=== PATIENT | female | born 1995 | race Caucasian/White ===

== ENCOUNTER 2018-01-23 08:08 | Emergency (ER) | payer SELFPAY ==
--- NOTE | 2018-01-23 08:08 | DT_ITS ---
This patient was seen during an EMR downtime January 23, 2018 - January 30, 2018. This patient may have a combination of paper and electronic documentation or all paper documentation. All documentation is viewable within the e-chart portion of [facility] for each patient visit.
--- NOTE | 2018-01-23 10:00 | US_ITS ---
STUDY: FIRST TRIMESTER OBSTETRICAL ULTRASOUND REASON FOR EXAM: Female, 22 years old. Spotting. LMP: October 22, 2017. TECHNIQUE: Transvaginal PRIOR ULTRASOUND: None. FINDINGS: There is visualization of a single gestational sac in a normal intrauterine position. The mean sac diameter (MSD) measures 9.7 mm, indicating an estimated gestational age (EGA) of 5 weeks, 5 days. The gestational sac shape is within normal limits. There is a visualized yolk sac. The yolk sac measures 2.3 mm. The placenta is non-visualized. There is visualization of a live embryo. The crown-rump length (CRL) measures 2.4 mm, indicating an estimated gestational age (EGA) of 5 weeks, 6 days. There is demonstrated cardiac activity with a heart rate of 105 bpm. The estimated gestation age (EGA) by LMP is 9 weeks, 2 days. The estimated date of delivery (JADEN) by LMP is August 26, 2018. The estimated gestation age (EGA) by US is 5 weeks, 6 days. The estimated date of delivery (JADEN) by US is September 19, 2018. The uterus measures 7.5 x 4.4 x 5.2 cm. There is no demonstrated uterine fibroid. The cervix is closed. The right ovary measures 3.5 x 2.4 x 1.9 cm. Some images suggest a thick walled 1.3 cm right ovarian structure, possibly an evolving corpus luteum. The left ovary measures 2.9 x 1.9 x 2.3 cm. There is no left ovarian cyst. There is no visualized left adnexal mass or complex lesion. There is no fluid in the cul de sac. US/Transvaginal w/Preg US IMPRESSION: 1. Single living intrauterine of estimated gestational age of 5 weeks, 6 days. Estimated date of delivery by today's exam is September 19, 2018, contrasting with August 26, 2018 by dates. 2. The placenta is not yet visualized. No demonstrated subchorionic hemorrhage. 3. Possible 1.3 cm thick-walled structure in the right ovary, a common appearance for an evolving corpus luteum. The left ovary is unremarkable. Electronically Signed: Brennen Hager MD at 16:18 EDT , Service support ,
[2018-01-26 10:31] LABS: hCG Titer Quant., Serum 3876 mIU/mL (<9 non-preg)
--- NOTE | 2018-02-21 06:17 | ED.VISSUMM ---
- ER Visit Summary Date of Service: 02/21/18 Chief Complaint: Vaginal bleeding History of Present Illness: The patient is a 22 F who states that yesterday she started having mild intermittent pelvic cramping with vaginal spotting. Believes that she is about 2-3 weeks . Ab0. She has a history of PTSD. She denies having prior abdominal surgery. She denies any discharge, fever or dysuria. Physical Examination: Well appearing young female. Vital signs stable and afebrile. H EENT exam unremarkable. Lungs clear to auscultation bilaterally. Heart regular rhythm no murmur. Abdomen is soft and nontender normal bowel sounds no peritoneal signs. Moving all 4 extremities. Calves without edema or cords. Neurologically awake and alert. Pelvic exam done female nurse present in the room. Normal external exam. No discharge. There is a small amount of old blood in the vaginal vault. There was no cervical motion tenderness on bimanual exam. The uterus was normal in size. The adnexa was nontender. Test Results: Quantitative hCG was 3876. Blood type was a positive. Pelvic CTA/CTV ultra sound showed a single live IUP at 5 weeks and 6 days with heart tones of 105. Otherwise unremarkable. Emergency Department Course and Treatment: Discharge to home to follow-up with her ACCOUNT OFFICER. Treatment Plan: Patient doing well at 1047. Was given p.o. Zofran for nausea. Disposition: Discharge Impression: Vaginal bleeding approximately 5 weeks and 6 days. Threatened miscarriage Chart dictated 02/21/2018. Initially seen and evaluated on 01/23/2018. Dictation was delayed due to computer downtime at the hospital. This note was generated with [employer] dictation software. It may contain incorrect words, spelling, and punctuation that were not noted in review of the chart prior to signing ED Disposition - Plan for ED Patient: Disposition: Home or Assisted Living Referrals: Care Physician,No Primary [Primary Care Provider] -
--- NOTE | 2018-02-21 06:20 | ED.DCSUM_ITS ---
- ER Visit Summary Date of Service: 02/21/18 Chief Complaint: Vaginal bleeding History of Present Illness: The patient is a 22 F who states that yesterday she started having mild intermittent pelvic cramping with vaginal spotting. Believes that she is about 2-3 weeks . Ab0. She has a history of PTSD. She denies having prior abdominal surgery. She denies any discharge, fever or dysuria. Physical Examination: Well appearing young female. Vital signs stable and afebrile. H EENT exam unremarkable. Lungs clear to auscultation bilaterally. Heart regular rhythm no murmur. Abdomen is soft and nontender normal bowel sounds no peritoneal signs. Moving all 4 extremities. Calves without edema or cords. Neurologically awake and alert. Pelvic exam done female nurse present in the room. Normal external exam. No discharge. There is a small amount of old blood in the vaginal vault. There was no cervical motion tenderness on bimanual exam. The uterus was normal in size. The adnexa was nontender. Test Results: Quantitative hCG was 3876. Blood type was a positive. Pelvic CTA /CTV ultra sound showed a single live IUP at 5 weeks and 6 days with heart tones of 105. Otherwise unremarkable. Emergency Department Course and Treatment: Discharge to home to follow-up with her MEDIA RELATIONS INTERN. Treatment Plan: Patient doing well at 1047. Was given p.o. Zofran for nausea. Disposition: Discharge Impression: Vaginal bleeding approximately 5 weeks and 6 days. Threatened miscarriage Chart dictated 02/21/2018. Initially seen and evaluated on 01/23/2018. Dictation was delayed due to computer downtime at the hospital. This note was generated with [employer] dictation software. It may contain incorrect words, spelling, and punctuation that were not noted in review of the chart prior to signing ED Disposition - Plan for ED Patient: Disposition: Home or Assisted Living Referrals: Care Physician,No Primary [Primary Care Provider] -
== END 2018-01-23 11:02 | disposition home or self-care (01) ==
LOC: ED 01-25 11:54
PROVIDERS: Emergency Provider Emergency Medicine
DX: O20.0 Threatened abortion (principal); Z3A.01 Less than 8 weeks gestation of pregnancy
CPT/HCPCS: 36415; 76817; 84702; 99283; A4216

== ENCOUNTER → 2018-01-25 06:05 | Outpatient (CLI) | payer SELFPAY ==
--- NOTE | 2018-01-25 06:05 | DT_ITS ---
This patient was seen during an EMR downtime January 23, 2018 - January 30, 2018. This patient may have a combination of paper and electronic documentation or all paper documentation. All documentation is viewable within the e-chart portion of [facility] for each patient visit.
[2018-01-30 10:41] LABS: Hematocrit 40.9 % (37-47); Hemoglobin 13.4 g/dl (12.0-15.0); Mean Corp Hgb Conc 32.8 g/gl (32-36); Mean Corpuscular Hgb 29.1 pg (27.0-32.0); Mean Corpuscular Volume 88.7 fL (81-99); Mean Platelet Vol. 9.9 fl (6.2-12.0); Platelet Count 348 K/mm3 (150-450); RBC Distribution Width CV 13.6 % (11.6-14.6); RBC Distribution Width SD 43.8 fl (35.1-43.9); Red Blood Count 4.61 M/mm3 (4.2-5.4); Scan Indicated on CBC? Y/N NO; White Blood Count 6.7 K/mm3 (4.4-11.0)
[2018-01-31 10:05] LABS: hCG Titer Quant., Serum 4728 mIU/mL (<9 non-preg)
== END ==
PROVIDERS: Visit Provider Obstetrics & Gynecology
DX: O20.0 Threatened abortion (principal); Z3A.00 Weeks of gestation of pregnancy not specified
CPT/HCPCS: 36415; 84702; 85027

== ENCOUNTER → 2018-01-27 06:04 | Outpatient (CLI) | payer OTHER, SELFPAY ==
--- NOTE | 2018-01-27 06:04 | DT_ITS ---
This patient was seen during an EMR downtime January 23, 2018 - January 30, 2018. This patient may have a combination of paper and electronic documentation or all paper documentation. All documentation is viewable within the e-chart portion of [facility] for each patient visit.
[2018-01-27 15:12] LABS: hCG Titer Quant., Serum 5723 mIU/mL (<9 non-preg)
== END ==
PROVIDERS: Visit Provider Nurse Practitioner Women's Health
DX: O20.0 Threatened abortion (principal)
CPT/HCPCS: 36415; 84702

== ENCOUNTER 2018-02-01 11:08 | Emergency (ER) | payer OTHER, SELFPAY ==
[2018-02-01 11:09] VITALS: BP 116/68; PULSE 100; RESP 15; TEMP 35.8; BMI 40.1
[2018-02-01 11:25] VITALS: BP 126/77; PULSE 84; RESP 22; O2SAT 100
--- NOTE | 2018-02-01 11:37 | US_ITS ---
STUDY: FIRST TRIMESTER OBSTETRICAL ULTRASOUND REASON FOR EXAM: Female, 22 years old. Bleeding. LMP: TECHNIQUE: Transvaginal PRIOR ULTRASOUND: None. FINDINGS: There is visualization of a single gestational sac in a normal intrauterine position. The mean sac diameter (MSD) measures 1.7 cm, indicating an estimated gestational age (EGA) of 6 weeks, 1 days. The gestational sac shape is within normal limits. There is a visualized yolk sac. The yolk sac measures 2.9. The placenta is non-visualized. There is visualization of a live embryo. The crown-rump length (CRL) measures 7.3 mm, indicating an estimated gestational age (EGA) of 6 weeks, 5 days. There is demonstrated cardiac activity with a heart rate of 122 bpm. The estimated gestation age (EGA) by LMP is weeks, days. The estimated date of delivery (JADEN) by LMP is . The estimated gestation age (EGA) by US is 6 weeks, 3 days. The estimated date of delivery (JADEN) by US is September 24, 2017. The uterus measures 8 x 5.7 x 2.6 cm. There is no demonstrated uterine fibroid. The cervix is closed. The right ovary measures 3.5 x 2.7 x 2.1 cm. There is no right ovarian cyst. There is no visualized right adnexal mass or complex lesion. The left ovary measures 3.2 x 2.3 x 1.9 cm . There is no left ovarian cyst. There is no visualized left adnexal mass or complex lesion. There is no fluid in the cul de sac. US/Transvaginal w/Preg US IMPRESSION: There is visualization of a live embryo. The crown-rump length (CRL) measures 7.3 mm, indicating an estimated gestational age (EGA) of 6 weeks, 5 days. There is demonstrated cardiac activity with a heart rate of 122 bpm. Electronically Signed: Ayesha Canales MD at 13:42 EDT Tel , Service support ,
--- NOTE | 2018-02-01 11:41 | ED.VISSUMM ---
- ER Visit Summary Date of Service: 02/01/18 Chief Complaint: Vaginal bleeding History of Present Illness: The patient is a 22 F states that she is Ab0. Approximately 7 weeks . Due date is 09/19/2018 and has recently been revised to 09/24/2018. States that she has had vaginal spotting for last 5 days. Denies any discharge no dysuria. No fever. Minimal cramping. Her blood type a positive. She has had a single live IUP show up on a ultrasound in her RECREATION TEACHER's office that is Dr. Bains. Physical Examination: Well-appearing young female. Vital signs are stable afebrile. She does not look septic or toxic. She is no acute distress. H EENT exam unremarkable. Neck nontender. Lungs clear to auscultation bilaterally. Heart regular rhythm no murmur. Abdomen soft nontender not distended, normal bowel sounds, no peritoneal signs. Soft. Moving all 4 extremities. Edema. Nontender. Neurologically She Is Awake Alert without Focal Deficits. Test Results: Prior blood work showed a blood type of a positive. Pelvic ultrasound showed a single live IUP at 6 weeks and 5 days with heart rate of 122. Her quantitative hCG was 8638. Approximately 5 days ago it was 5723. Emergency Department Course and Treatment: Repeat exam she is doing well at 1600. She is deferring pelvic exam at this time. She and I went over all test results. And she will follow-up with her RECREATION TEACHER physician Dr. Petros Pisano. Treatment Plan: [] Disposition: Discharge Impression: Vaginal bleeding and first trimester Threatened miscarriage This note was generated with [employer] dictation software. It may contain incorrect words, spelling, and punctuation that were not noted in review of the chart prior to signing ED Disposition - Plan for ED Patient: Chief Complaint: Vag Bld, Preg Referrals: Care Physician,No Primary [Primary Care Provider] -
--- NOTE | 2018-02-01 11:44 | ED.DCSUM_ITS ---
- ER Visit Summary Date of Service: 02/01/18 Chief Complaint: Vaginal bleeding History of Present Illness: The patient is a 22 F states that she is Ab0. Approximately 7 weeks . Due date is 09/19/2018 and has recently been revised to 09/24/2018. States that she has had vaginal spotting for last 5 days. Denies any discharge no dysuria. No fever. Minimal cramping. Her blood type a positive. She has had a single live IUP show up on a ultrasound in her RACK CLEANER's office that is Dr. Bains. Physical Examination: Well-appearing young female. Vital signs are stable afebrile. She does not look septic or toxic. She is no acute distress. H EENT exam unremarkable. Neck nontender. Lungs clear to auscultation bilaterally. Heart regular rhythm no murmur. Abdomen soft nontender not distended, normal bowel sounds, no peritoneal signs. Soft. Moving all 4 extremities. Edema. Nontender. Neurologically She Is Awake Alert without Focal Deficits. Test Results: Prior blood work showed a blood type of a positive. Pelvic ultrasound showed a single live IUP at 6 weeks and 5 days with heart rate of 122. Her quantitative hCG was 8638. Approximately 5 days ago it was 5723. Emergency Department Course and Treatment: Repeat exam she is doing well at 1600. She is deferring pelvic exam at this time. She and I went over all test results. And she will follow-up with her RACK CLEANER physician Dr. Petros Pisano. Treatment Plan: [] Disposition: Discharge Impression: Vaginal bleeding and first trimester Threatened miscarriage This note was generated with [employer] dictation software. It may contain incorrect words, spelling, and punctuation that were not noted in review of the chart prior to signing ED Disposition - Plan for ED Patient: Chief Complaint: Vag Bld, Preg Referrals: Care Physician,No Primary [Primary Care Provider] -
[2018-02-01 13:17] LABS: hCG Titer Quant., Serum 8638 mIU/mL (<9 non-preg)
[2018-02-01 13:20] VITALS: BP 120/86; PULSE 89; RESP 15; O2SAT 98
[2018-02-01 15:12] VITALS: PULSE 85; RESP 15; O2SAT 100
--- NOTE | 2018-02-01 16:06 | ED.DEP ---
ED Disposition - Plan for ED Patient: Disposition: Home or Assisted Living Chief Complaint: Vag Bld, Preg Instructions: ED Miscarriage Poss Referrals: Susanne Bains MD [STAFF PHYSICIAN] - As soon as possible Additional Instructions: Plenty of fluids and rest. Follow-up with your AIRCRAFT STRUCTURAL REPAIR MECHANIC physician.
[2018-02-01 16:24] VITALS: PULSE 85; RESP 16; O2SAT 99
== END 2018-02-01 16:24 | disposition home or self-care (01) ==
PROVIDERS: Emergency Provider Emergency Medicine
DX: O20.0 Threatened abortion (principal); Z3A.01 Less than 8 weeks gestation of pregnancy
CPT/HCPCS: 76817; 84702; 99282

== ENCOUNTER 2018-02-02 14:33 | Emergency (ER) | payer OTHER, SELFPAY ==
[2018-02-02 14:34] VITALS: BP 150/75; PULSE 101; RESP 18; TEMP 37; O2SAT 98; BMI 41.2
--- NOTE | 2018-02-02 15:32 | ED.DCSUM_ITS ---
- ER Visit Summary Date of Service: 02/02/18 Chief Complaint: Vaginal bleeding History of Present Illness: The patient is a 22 F presents with vaginal bleeding in . She is 6 weeks . She states that she has been bleeding for the past 11 days. She was seen in the emergency department yesterday. Today she presents because the bleeding became heavier. She is . She had an ultrasound performed in the emergency department yesterday. Physical Examination: Vitals are stable. Patient is afebrile. Alert no acute distress. HEENT exam is unremarkable. Lungs are clear and equal bilaterally. Heart is regular rate and rhythm. Abdomen is soft mild diffuse lower quadrant tenderness with no guarding or rebound Pelvic: Minimal blood in the vaginal vault, this is cleared with cotton tip swab , no significant active bleeding. Cervix is closed. Extremities are unremarkable. Skin is warm and dry. No focal neurologic deficit. Remainder of exam is unremarkable. Emergency Department Course and Treatment: HCG quant 8919. Yesterday it was 8638. Blood type per previous documentation is A+. CBC is unremarkable. Pelvic ultrasound shows single live IUP 7 weeks, 2 days. There is demonstrated cardiac activity with a heart rate of [address] Bains and she will follow the patient in the office next week. Advised return to ED if worsening complaints. Disposition: Discharge home Impression: Vaginal bleeding in This note was generated with [employer] dictation software. It may contain incorrect words, spelling, and punctuation that were not noted in review of the chart prior to signing ED Disposition - Plan for ED Patient: Chief Complaint: Vag Bld, Preg Instructions: ED Miscarriage Poss Referrals: Susanne Bains MD [STAFF PHYSICIAN] - Care Physician,No Primary [Primary Care Provider] -
[2018-02-02 15:44] LABS: Absolute Lymphocyte Count 1.87 X10^3/ul (0.83-4.51); Absolute Neutrophil Count 4.8 X10^3/uL (2.0-7.7); Basophil# 0.02 X10^3/uL; Basophil% 0.3 % (0-1); Eosinophils% 2.6 % (0-5); Hematocrit 37.8 % (37-47); Hemoglobin 12.4 g/dl (12.0-15.0); Lymphocyte # 1.87 X10^3/ul (4.0); Lymphocyte % 24.6 % (19-41); Mean Corp Hgb Conc 32.8 g/gl (32-36); Mean Corpuscular Hgb 28.3 pg (27.0-32.0); Mean Corpuscular Volume 86.3 fL (81-99); Mean Platelet Vol. 9.1 fl (6.2-12.0); Monocyte# 0.68 X10^3/uL; Neutrophil # 4.82 X10^3/uL (2.7-7.7); Neutrophil % 63.5 % (47-70); Platelet Count 305 K/mm3 (150-450); RBC Distribution Width CV 13.4 % (11.6-14.6); RBC Distribution Width SD 42.3 fl (35.1-43.9); Red Blood Count 4.38 M/mm3 (4.2-5.4); White Blood Count 7.6 K/mm3 (4.4-11.0)
[2018-02-02 15:50] LABS: POSITIVE COUNT NO; POSITIVE DIFFERENTIAL NO; POSITIVE MORPHOLOGY NO
--- NOTE | 2018-02-02 16:06 | US_ITS ---
STUDY: FIRST TRIMESTER OBSTETRICAL ULTRASOUND REASON FOR EXAM: Female, 22 years old. Bleeding. . TECHNIQUE: Transvaginal PRIOR ULTRASOUND: 02/01/2018 FINDINGS: There is visualization of a single gestational sac in a normal intrauterine position. There is a visualized yolk sac. There is visualization of a live embryo. The crown-rump length (CRL) measures 1.1 cm, indicating an estimated gestational age (EGA) of 7 weeks, 2 days. There is demonstrated cardiac activity with a heart rate of 119 bpm. The uterus measures 7.3 x 5.4 x 4.1 cm. There is no demonstrated uterine fibroid. The cervix is closed. The right ovary measures 3.9 x 2.9 x 2.4 cm. There is no right ovarian cyst. There is no visualized right adnexal mass or complex lesion. The left ovary measures 3.2 x 2.3 x 2.0 cm. There is no left ovarian cyst. There is no visualized left adnexal mass or complex lesion. There is no fluid in the cul de sac. US/Transvaginal w/Preg US IMPRESSION: Single live intrauterine gestation, as described above. Electronically Signed: Ethan Gonzalez, at 17:10 EDT Tel , Service support ,
--- NOTE | 2018-02-02 16:11 | ED.RN ---
SPOKE WITH WILLAM AT DR. MASTERS'S OFFICE WHO REQUESTED OB US FOR FHT.
[2018-02-02 16:19] LABS: hCG Titer Quant., Serum 8919 mIU/mL (<9 non-preg)
--- NOTE | 2018-02-02 16:28 | ED.RN ---
hcg 8191 called from the lab.
--- NOTE | 2018-02-02 17:50 | ED.DEP ---
ED Disposition - Plan for ED Patient: Chief Complaint: Vag Bld, Preg Instructions: ED Miscarriage Poss Referrals: Care Physician,No Primary [Primary Care Provider] - Susanne Bains MD [STAFF PHYSICIAN] -
[2018-02-02 18:04] VITALS: BP 147/77; PULSE 82; RESP 16
== END 2018-02-02 18:04 | disposition home or self-care (01) ==
PROVIDERS: Emergency Provider Emergency Medicine
DX: O20.0 Threatened abortion (principal); O20.9 Hemorrhage in early pregnancy, unspecified; Z3A.01 Less than 8 weeks gestation of pregnancy
CPT/HCPCS: 36415; 76817; 84702; 85025; 99282

== ENCOUNTER 2018-02-07 22:40 | Emergency (ER) | payer OTHER, SELFPAY ==
[2018-02-07 22:40] VITALS: BP 117/72; PULSE 84; RESP 16; TEMP 36.8; O2SAT 100; BMI 39.8
--- NOTE | 2018-02-07 23:00 | US_ITS ---
STUDY: FIRST TRIMESTER OBSTETRICAL ULTRASOUND REASON FOR EXAM: Female, 22 years old. Bleeding LMP: 12/13/2017 TECHNIQUE: Transabdominal and transvaginal probes were used PRIOR ULTRASOUND: February 02, 2018 FINDINGS: The study shows a gravid uterus measuring 8.3 x 5.5 x 4.1 cm. It contains a gestational sac within which is seen on embryonic pole. There is an abnormal abdomen embryonic cardiac activity with a rate of between 53 and 58 bpm. There is an embryonic crown-rump length of 1.6 cm compatible with 8 weeks 0 days +/- 5 days with an expected date of delivery of 09/23/2018. Both ovaries are visualized and they both show normal vascularity. The right ovary measures 3.8 x 2.7 x 2.2 cm and has a 2 cm corpus luteal cyst within it. The left ovary measures 3.5 x 2.1 x 1.5 cm. No free fluid in the cul-de-sac. .. US/Transvaginal w/Preg US IMPRESSION: An intrauterine at 8 weeks 0 days +/- 5 days with an expected date of delivery of 09/23/2018. The embryonic heart rate is currently recording at 53 to 58 bpm. This is abnormal. In the last examination of February 02, 2018 the heart rate was 11 9 bpm. Electronically Signed: Rex Boykin, at 0:41 EDT Tel , Service support ,
[2018-02-08 00:15] LABS: hCG Titer Quant., Serum 14328 mIU/mL (<9 non-preg)
--- NOTE | 2018-02-08 00:22 | ED.VISSUMM ---
- ER Visit Summary Date of Service: 02/08/18 Chief Complaint: Vaginal bleeding in History of Present Illness: The patient is a 22 F presenting with vaginal bleeding in . Patient states she has been bleeding for approximately 11 days. She was seen in the ED for similar complaints on February 02. She has mild abdominal cramping. She was concerned today due to bleeding with clots. She is . She sees Dr. Oconnell. Physical Examination: Vitals are stable. Patient is afebrile. Alert no acute distress. HEENT exam is unremarkable. Neck is supple. Lungs are clear and equal bilaterally. Heart is regular rate and rhythm. Abdomen is soft nontender nondistended. Pelvic: Small amount of blood in the vaginal vault. This is cleared with a cotton swab. No significant active bleeding. Extremities are unremarkable. Skin is warm and dry. No focal neurologic deficit. Remainder of exam is unremarkable. Emergency Department Course and Treatment: HCG quant [id number]. Blood type is A+. She was given Tylenol. Pelvic ultrasound shows an intrauterine at 8 weeks 0 days +/- 5 days with an expected date of delivery of 09/23/2018. The embryonic heart rate is currently recording at 53 to 58 bpm. This is abnormal. In the last examination of February 02, 2018 the heart rate was 119 bpm. Patient is advised of these findings. Discussed with Dr. Doc Pisano. Patient has a scheduled appointment on Tuesday. She is advised to keep this appointment. Advised to return to the ED for worsening complaints. Disposition: Discharge home Impression: Threatened This note was generated with [employer] dictation software. It may contain incorrect words, spelling, and punctuation that were not noted in review of the chart prior to signing ED Disposition - Plan for ED Patient: Chief Complaint: Vag Bld, Preg Referrals: Care Physician,No Primary [Primary Care Provider] -
--- NOTE | 2018-02-08 00:26 | ED.DCSUM_ITS ---
- ER Visit Summary Date of Service: 02/08/18 Chief Complaint: Vaginal bleeding in History of Present Illness: The patient is a 22 F presenting with vaginal bleeding in . Patient states she has been bleeding for approximately 11 days. She was seen in the ED for similar complaints on February 02. She has mild abdominal cramping. She was concerned today due to bleeding with clots. She is . She sees Dr. Oconnell. Physical Examination: Vitals are stable. Patient is afebrile. Alert no acute distress. HEENT exam is unremarkable. Neck is supple. Lungs are clear and equal bilaterally. Heart is regular rate and rhythm. Abdomen is soft nontender nondistended. Pelvic: Small amount of blood in the vaginal vault. This is cleared with a cotton swab. No significant active bleeding. Extremities are unremarkable. Skin is warm and dry. No focal neurologic deficit. Remainder of exam is unremarkable. Emergency Department Course and Treatment: HCG quant [id number]. Blood type is A+. She was given Tylenol. Pelvic ultrasound shows an intrauterine at 8 weeks 0 days +/- 5 days with an expected date of delivery of 09/23/2018. The embryonic heart rate is currently recording at 53 to 58 bpm. This is abnormal. In the last examination of February 02, 2018 the heart rate was 119 bpm. Patient is advised of these findings. Discussed with Dr. Doc Pisano. Patient has a scheduled appointment on Tuesday. She is advised to keep this appointment. Advised to return to the ED for worsening complaints. Disposition: Discharge home Impression: Threatened This note was generated with [employer] dictation software. It may contain incorrect words, spelling, and punctuation that were not noted in review of the chart prior to signing ED Disposition - Plan for ED Patient: Chief Complaint: Vag Bld, Preg Referrals: Care Physician,No Primary [Primary Care Provider] -
[2018-02-08 01:04] VITALS: BP 130/88
== END 2018-02-08 01:05 | disposition home or self-care (01) ==
LOC: ED 23:56
PROVIDERS: Emergency Provider Emergency Medicine
DX: O20.0 Threatened abortion (principal); Z3A.08 8 weeks gestation of pregnancy
CPT/HCPCS: 76817; 84702; 84703; 86900; 86901; 99282

== ENCOUNTER 2018-02-27 10:54 | Emergency (ER) | payer OTHER, SELFPAY ==
[2018-02-27 10:54] VITALS: BP 139/73; PULSE 112; RESP 18; TEMP 36.4; O2SAT 100; BMI 38.3
[2018-02-27 11:15] VITALS: BP 135/70; PULSE 90; RESP 14; O2SAT 99
[2018-02-27 11:27] LABS: Bacteria 0 SEEN /hpf (None Seen); Mucous, Urine 0 SEEN /hpf (<or=2+)
[2018-02-27 11:30] LABS: Color, Urine Red (Yellow); Glucose, Dipstick Normal (Normal); Ketone-Dipstick 5 mg/dl (Negative); Leukocyte Esterase-Dipstick 500 /ul (Negative); Nitrite-Dipstick Negative (Negative); Occult Blood-Urine 250 /ul (Negative); Protein-Dipstick 500 mg/dl (Negative); Urine Bilirubin Dipstick Negative (Negative); Urine Clarity Cloudy (Clear); Urine Urobilinogen Normal (Normal); Urine pH 6.5 (5.0 - 8.0)
[2018-02-27 11:39] LABS: Red Blood Cells-Urine 50-100 SEEN /hpf (0-5); Squamous Epithelial Cells - UA 0-5 SEEN /hpf (5-10); White Blood Cells 50-100 SEEN /hpf (0-5)
--- NOTE | 2018-02-27 12:53 | ED.VISSUMM ---
- ER Visit Summary Date of Service: 02/27/18 Chief Complaint: Hematuria History of Present Illness: The patient is a 22 F who presents with dysuria and hematuria that began today. Patient describes her pain as sharp and burning. Patient states she has pain over the suprapubic area. Patient denies any fevers but admits to subjective chills. Patient denies any abnormal vaginal bleeding or discharge. Patient denies any nausea or vomiting. Patient denies any back or flank pain. Physical Examination: Vital signs are stable. Patient is afebrile. Patient is in no acute distress. Oral mucosa is pink and moist. Heart was regular rate and rhythm. Lungs are clear and equal bilateral. Abdomen is soft. Bowel sounds are normal. There is some mild suprapubic tenderness. There is no rebound or guarding noted. Cranial nerves II through XII are intact. There are no focal motor or sensory deficits noted. Test Results: Urinalysis shows evidence of urinary tract infection. Emergency Department Course and Treatment: Patient was given prescription for Bactrim. Patient was instructed to follow-up with her primary care physician in 5-7 days. Patient understood and was agreeable with the plan. All questions were answered. Disposition: Discharged home Impression: Urinary tract infection This note was generated with [employer] dictation software. It may contain incorrect words, spelling, and punctuation that were not noted in review of the chart prior to signing ED Disposition - Plan for ED Patient: Disposition: Home or Assisted Living Chief Complaint: Complaint Diagnosis: Urinary tract infection Instructions: ED UTI Cystitis Female Prescriptions: Smz/Tmp Ds [Bactrim Ds] 1 tab PO BID #6 tab Referrals: Care Physician,No Primary [Primary Care Provider] -
[2018-02-27 13:09] VITALS: BP 125/75; BP 128/70; PULSE 92; RESP 14; RESP 15; O2SAT 98; O2SAT 99
== END 2018-02-27 13:27 | disposition home or self-care (01) ==
PROVIDERS: Emergency Provider Emergency Medicine
DX: N39.0 Urinary tract infection, site not specified (principal); R31.9 Hematuria, unspecified; J44.9 Chronic obstructive pulmonary disease, unspecified; Z72.0 Tobacco use
CPT/HCPCS: 81001; 99282

== ENCOUNTER → 2018-04-03 11:25 | Outpatient (CLI) | payer OTHER, SELFPAY | PROVIDERS: Visit Provider Obstetrics & Gynecology | DX: N91.2 Amenorrhea, unspecified (principal) | CPT/HCPCS: 36415; 84702 ==

== ENCOUNTER → 2018-04-14 15:53 | Outpatient (CLI) | payer OTHER, SELFPAY | LOC: US 15:53 | PROVIDERS: Visit Provider Obstetrics & Gynecology | DX: O09.299 Supervision of pregnancy with other poor reproductive or obstetric history, unspecified trimester (principal) | CPT/HCPCS: 76817 ==

== ENCOUNTER → 2018-04-18 12:22 | Outpatient (CLI) | payer OTHER, SELFPAY ==
[2018-04-18 13:25] LABS: Absolute Lymphocyte Count 2.37 X10^3/ul (0.83-4.51); Absolute Neutrophil Count 5.3 X10^3/uL (2.0-7.7); Basophil# 0.03 X10^3/uL; Basophil% 0.3 % (0-1); Eosinophil# 0.47 X10^3/uL; Eosinophils% 5.2 % (0-5); Hematocrit 36.9 % (37-47); Hemoglobin 12.3 g/dl (12.0-15.0); Lymphocyte # 2.37 X10^3/ul (4.0); Lymphocyte % 26.1 % (19-41); Mean Corp Hgb Conc 33.3 g/gl (32-36); Mean Corpuscular Hgb 28.9 pg (27.0-32.0); Mean Corpuscular Volume 86.8 fL (81-99); Mean Platelet Vol. 9.4 fl (6.2-12.0); Monocyte# 0.89 X10^3/uL; Monocyte% 9.8 % (0-10); Neutrophil # 5.32 X10^3/uL (2.7-7.7); Neutrophil % 58.5 % (47-70); POSITIVE COUNT NO; POSITIVE DIFFERENTIAL NO; POSITIVE MORPHOLOGY NO; Platelet Count 314 K/mm3 (150-450); RBC Distribution Width CV 13.7 % (11.6-14.6); RBC Distribution Width SD 43.5 fl (35.1-43.9); Red Blood Count 4.25 M/mm3 (4.2-5.4); White Blood Count 9.1 K/mm3 (4.4-11.0)
[2018-04-18 13:36] LABS: Amphetamine Urine VISTA NEGATIVE (<1000 ng/mL); Barbiturate Urine VISTA NEGATIVE (< 200 ng/mL); Benzodiazepine Urine VISTA NEGATIVE (< 200 ng/mL); Cocaine Urine VISTA NEGATIVE (< 300 ng/mL); Ecstacy Urine VISTA NEGATIVE (< 500 ng/mL); Methadone Urine VISTA NEGATIVE (< 300 ng/mL); PCP Urine VISTA NEGATIVE (< 25 ng/mL); THC Urine VISTA POSITIVE (< 50 ng/mL); Vista UDS pH Range 5
[2018-04-18 13:48] LABS: Glucose Challenge Gest 1H 50g 91 mg/dL (70-140)
[2018-04-18 14:03] LABS: T4 Free Direct 0.93 ng/dL (0.76-1.46); Thyroid Stim Hormone (TSH) 1.44 uIU/mL (0.358-3.74)
[2018-04-19 10:34] LABS: HIV - WCH Non-Reactive (Nonreactive); Rubella IgG 47.6 IU/mL
[2018-04-19 20:07] LABS: HCV Quant. RNA PCR HCV Not Detected IU/mL (.)
[2018-04-21 03:49] LABS: Rapid Plasmin Reagin (RPR) NONREACTIVE (NONREACTIVE)
[2018-04-21 10:00] LABS: HEPATITIS B SURFACE AG Negative (Negative); Hep C Antibodies 0.1 s/co ratio (0.0-0.9); V-Zoster IgG (Immunity) < 135 index (Immune >165)
== END ==
LOC: LAB 12:23
PROVIDERS: Visit Provider Obstetrics & Gynecology
DX: O09.90 Supervision of high risk pregnancy, unspecified, unspecified trimester (principal); O99.330 Smoking (tobacco) complicating pregnancy, unspecified trimester; Z34.90 Encounter for supervision of normal pregnancy, unspecified, unspecified trimester
CPT/HCPCS: 36415; 80307; 82950; 84439; 84443; 85025; 86592; 86703; 86762; 86787; 86803; 86850; 86900; 87340; 87522

== ENCOUNTER → 2018-04-18 18:42 | Outpatient (CLI) | payer OTHER, SELFPAY ==
[2018-04-18 21:24] LABS: Chlamydia Trachomatis by PCR Negative (Negative); Neisserai gonorrhoeae by PCR Negative (Negative); Probe Check PASS; Sample Adequacy Control PASS; Specimen Processing Control PASS
[2018-04-26 12:25] LABS: HPV APTIMA, High Risk Negative (Negative)
[2018-04-26 14:43] LABS: HPV Reflexed? YES, CHARGE PATIENT
== END ==
PROVIDERS: Visit Provider Obstetrics & Gynecology
DX: Z12.4 Encounter for screening for malignant neoplasm of cervix (principal); O09.90 Supervision of high risk pregnancy, unspecified, unspecified trimester; O99.330 Smoking (tobacco) complicating pregnancy, unspecified trimester
CPT/HCPCS: 87086; 87491; 87591; 87624; 88175; G0145

== ENCOUNTER → 2018-05-18 12:20 | Outpatient (CLI) | payer OTHER, SELFPAY | DX: Z36.82 Encounter for antenatal screening for nuchal translucency (principal) | CPT/HCPCS: 36415 ==

== ENCOUNTER 2018-06-06 08:13 | Emergency (ER) | payer OTHER, SELFPAY ==
[2018-06-06 08:14] VITALS: BP 136/79; PULSE 93; RESP 20; TEMP 36.9; O2SAT 100; BMI 41.8
--- NOTE | 2018-06-06 08:31 | EKG12_ITS ---
Test Reason : SOB Blood Pressure : / mmHG Vent. Rate : 085 BPM Atrial Rate : 085 BPM P-R Int : 176 ms QRS Dur : 074 ms QT Int : 394 ms P-R-T Axes : 034 024 042 degrees QTc Int : 468 ms Normal sinus rhythm Normal ECG Confirmed by MURIEL PEREZ, MAUREEN ([id number]), film editor SEBASTIAN WETZEL ([id number]) on 06/08/2018 9:57:06 AM Referred By: CHIOMA Confirmed By:MAUREEN LLAMAS MD
--- NOTE | 2018-06-06 08:31 | RAD_ITS ---
STUDY: X-RAY CHEST REASON FOR EXAM: Female, 23 years old. Right-sided chest pain TECHNIQUE: PA and lateral views of the chest. COMPARISON: 12/14/2016 FINDINGS: The lungs are clear and expanded. There is no demonstrated pleural abnormality. Normal size heart. Normal mediastinum and lynda. Normal visualized pulmonary arteries. Normal visualized aortic arch and descending thoracic aorta. Normal visualized thoracic spine. Normal visualized ribs, clavicles, and shoulders. There is no demonstrated abnormality of the visualized soft tissue structures of the upper abdomen. RAD/Chest PA and Lateral IMPRESSION: Normal x-ray examination of the chest. Electronically Signed: Marco Antonio Mishra DO at 9:25 EDT Tel , Service support ,
--- NOTE | 2018-06-06 08:32 | ED.VISSUMM ---
- ER Visit Summary Date of Service: 06/06/18 Chief Complaint: [] Right-sided chest pain began Tuesday History of Present Illness: The patient is a 23 F [] reports she is 16 weeks she believes she is , she indicates she believes she had a miscarriage sometime in the summer than she is subsequent became , her pregnancies been uncomplicated no abdominal pain vaginal bleeding or discharge. Her MANAGER IT TRAINING checks have been unremarkable. 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 but did not improve, she indicates is worse when she takes a deep breath, she has had no fever minimal cough, head neck chest abdomen otherwise review of systems are negative She reports a history of emphysema diagnosed when she was 19 related to some unspecified nonspecific condition, she also reports she has an unspecified sticky heart valve that does not require surgery or further therapy just observation, she has no history of [place] PE or DVT she has no history of any GI ailments such as hepatobiliary dysfunction, no kidney stones and again she has had no vaginal bleeding or vaginal discharge, she indicates she has had prior colonoscopies and EGDs for diarrhea that showed nothing acute, she points to the right upper back as the area of discomfort, again she indicates her urinary and bowel habits have been normal Physical Examination: [] Her vital signs are within normal range she is in no distress she speaking full sentences HEENT exams unremarkable the neck is supple no adenopathy the lungs sound clear bilaterally heart tones are unremarkable the abdomen is soft nontender no rebound guarding organomegaly, upper and lower extremities unremarkable without signs clubbing or edema, the right upper back there is a vague pain diffusely over the right scapula there is no flank pain no midline T or lumbar spine pain, neurologically she is awake alert moving all 4 extremities Test Results: [] Emergency Department Course and Treatment: [] And her complaints screening labs x-rays shielded, I explained her the potential for CTA she agrees Patient's laboratory studies including chest x-ray were unremarkable, I discussed CTA with her she understood risk benefits shielding was used CTA chest was done that was negative for all see those reports, she was then sent for right upper quadrant ultrasound OB ultrasound the right upper quadrant ultrasound showed normal kidney, normal right upper quadrant except for a polyp in the gallbladder, and then a normal OB ultrasound 16-week live IUP see all those reports She is feeling better she is frustrated lack of diagnosis I explained to her that given the negative workup that is been very extensive given the fact she is improved it is safe to discharge her home to follow-up with her family doctors and other outpatient providers she agrees she will placed off work take Tylenol for the pain and return for change in symptoms and stay in a bland diet Treatment Plan: [] Disposition: [] Home stable Impression: [] rt Sided chest pain etiology unclear, approximately 7 weeks single live IUP This note was generated with [employer] dictation software. It may contain incorrect words, spelling, and punctuation that were not noted in review of the chart prior to signing ED Disposition - Plan for ED Patient: Chief Complaint: Shortness of Breath Referrals: Care Physician,No Primary [Primary Care Provider] -
--- NOTE | 2018-06-06 08:36 | ED.DCSUM_ITS ---
- ER Visit Summary Date of Service: 06/06/18 Chief Complaint: [] Right-sided chest pain began Tuesday History of Present Illness: The patient is a 23 F [] reports she is 16 weeks she believes she is , she indicates she believes she had a miscarriage sometime in the summer than she is subsequent became , her pregnancies been uncomplicated no abdominal pain vaginal bleeding or discharge. 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 but did not improve, she indicates is worse when she takes a deep breath, she has had no fever minimal cough, head neck chest abdomen otherwise review of systems are negative She reports a history of emphysema diagnosed when she was 19 related to some unspecified nonspecific condition, she also reports she has an unspecified sticky heart valve that does not require surgery or further therapy just observation, she has no history of [place] PE or DVT she has no history of any GI ailments such as hepatobiliary dysfunction, no kidney stones and again she has had no vaginal bleeding or vaginal discharge, she indicates she has had prior colonoscopies and EGDs for diarrhea that showed nothing acute, she points to the right upper back as the area of discomfort, again she indicates her urinary and bowel habits have been normal Physical Examination: [] Her vital signs are within normal range she is in no distress she speaking full sentences HEENT exams unremarkable the neck is supple no adenopathy the lungs sound clear bilaterally heart tones are unremarkable the abdomen is soft nontender no rebound guarding organomegaly, upper and lower extremities unremarkable without signs clubbing or edema, the right upper back there is a vague pain diffusely over the right scapula there is no flank pain no midline T or lumbar spine pain, neurologically she is awake alert moving all 4 extremities Test Results: [] Emergency Department Course and Treatment: [] And her complaints screening labs x-rays shielded, I explained her the potential for CTA she agrees Patient's laboratory studies including chest x-ray were unremarkable, I discussed CTA with her she understood risk benefits shielding was used CTA chest was done that was negative for all see those reports, she was then sent for right upper quadrant ultrasound OB ultrasound the right upper quadrant ultrasound showed normal kidney, normal right upper quadrant except for a polyp in the gallbladder, and then a normal OB ultrasound 16-week live IUP see all those reports She is feeling better she is frustrated lack of diagnosis I explained to her that given the negative workup that is been very extensive given the fact she is improved it is safe to discharge her home to follow-up with her family doctors and other outpatient providers she agrees she will placed off work take Tylenol for the pain and return for change in symptoms and stay in a bland diet Treatment Plan: [] Disposition: [] Home stable Impression: [] rt Sided chest pain etiology unclear, approximately 7 weeks single live IUP This note was generated with [employer] dictation software. It may contain incorrect words, spelling, and punctuation that were not noted in review of the chart prior to signing ED Disposition - Plan for ED Patient: Chief Complaint: Shortness of Breath Referrals: Care Physician,No Primary [Primary Care Provider] -
[2018-06-06 08:54] LABS: Absolute Lymphocyte Count 2.04 X10^3/ul (0.83-4.51); Absolute Neutrophil Count 6.3 X10^3/uL (2.0-7.7); Basophil# 0.02 X10^3/uL; Basophil% 0.2 % (0-1); Eosinophil# 0.27 X10^3/uL; Eosinophils% 2.9 % (0-5); Hematocrit 37.7 % (37-47); Hemoglobin 12.7 g/dl (12.0-15.0); Lymphocyte # 2.04 X10^3/ul (4.0); Lymphocyte % 21.9 % (19-41); Mean Corp Hgb Conc 33.7 g/gl (32-36); Mean Corpuscular Hgb 28.9 pg (27.0-32.0); Mean Corpuscular Volume 85.9 fL (81-99); Mean Platelet Vol. 9.5 fl (6.2-12.0); Monocyte# 0.64 X10^3/uL; Monocyte% 6.9 % (0-10); Neutrophil # 6.32 X10^3/uL (2.7-7.7); Neutrophil % 67.9 % (47-70); Platelet Count 282 K/mm3 (150-450); RBC Distribution Width CV 13.3 % (11.6-14.6); RBC Distribution Width SD 41.7 fl (35.1-43.9); Red Blood Count 4.39 M/mm3 (4.2-5.4); White Blood Count 9.3 K/mm3 (4.4-11.0)
[2018-06-06 08:55] LABS: POSITIVE COUNT NO; POSITIVE DIFFERENTIAL NO; POSITIVE MORPHOLOGY NO
[2018-06-06 09:13] LABS: Anion Gap 8 (5-15); BUN 7 mg/dL (7-18); Calcium,Total 8.4 mg/dL (8.5-10.1); Chloride 104 mmol/L (98-107); Creatinine, Serum 0.54 mg/dL (0.55-1.02); EST Glomerular Filtration Rate 148 mL/min (>60); Est Glom Filt Rate - Afr Amer 179 mL/min (>60); Estimated Creatinine Clearance 132.89 ml/min; Glucose 75 mg/dL (74-106); Potassium 3.6 mmol/L (3.5-5.1); Sodium Level 138 mmol/L (136-145)
[2018-06-06] MEDS: 0.9% Normal Saline 1,000 ML 150 ML IV (09:16)
[2018-06-06] MEDS: Morphine 4 MG/ML Syringe IV (09:16)
[2018-06-06] MEDS: Ondansetron 4 MG/2 ML Vial IV (09:16)
[2018-06-06 09:23] LABS: BNP,B-Type NATRIURETIC PEPTIDE 13.6 pg/mL (0-100)
--- NOTE | 2018-06-06 09:55 | CT_ITS ---
STUDY: CTA CHEST REASON FOR EXAM: Female, 23 years old. 5 day history of breast shortness of breath and chest pain. The patient is 17 weeks spine. The patient is appropriately shielded. RADIATION DOSAGE (If Supplied By Facility): CTDIvol = ( 15.50 ) mGy, DLP = ( 700.16 ) mGycm TECHNIQUE: The examination was performed with the intravenous administration of 100ML ml of Isovue 370 contrast material. Post-processing of the angiographic images was performed, with multiplanar reformation and 3D reconstruction. Individualized dose optimization techniques were used for this CT. COMPARISON: Comparison is made with prior study dated May 29, 2016. FINDINGS: Normal enhancement of the main pulmonary artery and right and left pulmonary arteries. Normal enhancement of the bilateral peripheral pulmonary arteries. There is no demonstrated pulmonary embolism. Normal thoracic aorta and visualized great vessels. There is no demonstrated aortic dissection. Normal heart and pericardium. Normal mediastinum. Normal hilar regions. Normal visualized trachea and bronchi. The lungs are well expanded. There is a stable 4.4 mm noncalcified nodule in the posterior medial segment of the right lower lobe as seen on axial image #98. Normal pleura. Normal chest wall structures. Normal osseous structures. Normal visualized upper abdomen. CT/CTA Chest W/WO Contrast IMPRESSION: Normal CTA chest examination, without a demonstrated pulmonary embolism or arterial dissection. Stable 4.4 mm noncalcified nodule in the posterior medial aspect of the right lower lobe. Electronically Signed: Mike Pereira MD at 10:57 EDT Tel [phone], Service support ,
[2018-06-06 10:02] VITALS: BP 123/75; PULSE 85; RESP 32; O2SAT 99
[2018-06-06 10:06] VITALS: O2SAT 99
[2018-06-06 11:03] VITALS: BP 111/56; PULSE 96; RESP 27; O2SAT 100
--- NOTE | 2018-06-06 11:23 | US_ITS ---
STUDY: ABDOMINAL ULTRASOUND - RIGHT UPPER QUADRANT REASON FOR VISIT: Female, 23 years old. Right upper quadrant pain. TECHNIQUE: Ultrasound evaluation of the right upper quadrant was performed with real-time and static terry-scale imaging. TECHNICAL QUALITY: Adequate. COMPARISON: None. FINDINGS: Liver: The liver measures 18.3 cm. There is normal echogenicity of the liver. The bile ducts are within normal limits. There is hepatic color flow. The direction of portal flow is hepatopetal. There is no demonstrated mass lesion. Gallbladder: Normal distended gallbladder. The gallbladder wall measures 2.2 mm. There is a negative sonographic Malcolm's sign. There is no pericholecystic fluid. There are no gallstones. There is a 6 mm x 5 mm x 4 mm polyp adherent to the gallbladder wall. Common Bile Duct (C.B.D.): The common bile duct measures 3.8 mm. Pancreas: Normal size of the head, body and tail of the pancreas. There is normal echogenicity of the pancreas. There is no demonstrated pancreatic mass or cyst. Right Kidney: Normal size of the right kidney. The right kidney measures 11.7 cm x 6.2 cm x 4.0 cm. Normal renal cortex. The right cortex measures 1.5 cm. There is no demonstrated renal mass or cyst. There is no right hydronephrosis. US/Abdomen Limited IMPRESSION: 6 mm x 5 mm x 4 mm gallbladder polyp. Electronically Signed: Mike Pereira MD at 13:53 EDT Tel [phone], Service support ,
--- NOTE | 2018-06-06 11:57 | US_ITS ---
STUDY: SECOND AND THIRD TRIMESTER OBSTETRICAL ULTRASOUND - LIMITED REASON FOR EXAM: Female, 23 years old. Abdominal pain. LMP: April 14, 2018. PRIOR ULTRASOUND: Comparison is made with prior examination dated April 14, 2018. TECHNIQUE: Transabdominal TECHNICAL QUALITY: Adequate. FINDINGS: There is a single intrauterine fetus. The fetus is in a cephalic presentation. There is demonstrated cardiac activity with a heart rate of 140 bpm. There is a normal amniotic fluid volume. The amniotic fluid index (CESARIO) is normal. The placenta is anterior in location and is not low lying. There are Grade 0 placental changes. The cervix measures 3.8 cm in length. BIOMETRY: BPD: 3.3 cm: 16 weeks, 3 days HC: 13.1 cm: 16 weeks, 6 days AC: 11.3 cm: 17 weeks, 1 days FL: 1.98 cm: 16 weeks, 0 days Age by LMP: 16 weeks, 6 days. JADEN by LMP: November 08, 2018. age by prior US: 16 weeks, 4 days. JADEN by prior US: November 17, 2018. age by current US: 16 weeks, 5 days. JADEN by current US: November 16, 2018. Estimated weight: 160 grams, +/- 23 grams, 40 percentile. Gender: Indeterminant US/OB Limited With Biometrics IMPRESSION: Single live uterine gestation with a mean gestational age of 16 weeks and 4 days. The measurements obtained today following thin the normal expected range. Electronically Signed: Mike Pereira MD at 14:00 EDT Tel [phone], Service support ,
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
[2018-06-06 13:09] LABS: Bacteria 0 SEEN /hpf (None Seen); Mucous, Urine 0 SEEN /hpf (<or=2+); Red Blood Cells-Urine 0 SEEN /hpf (0-5)
[2018-06-06 13:10] LABS: Color, Urine Straw (Yellow); Glucose, Dipstick Normal (Normal); Ketone-Dipstick Negative (Negative); Leukocyte Esterase-Dipstick Negative /ul (Negative); Nitrite-Dipstick Negative (Negative); Occult Blood-Urine Negative /ul (Negative); Protein-Dipstick Negative (Negative); Urine Bilirubin Dipstick Negative (Negative); Urine Clarity Clear (Clear); Urine Urobilinogen Normal (Normal)
[2018-06-06 13:22] LABS: Squamous Epithelial Cells - UA 0-5 SEEN /hpf (5-10); White Blood Cells 0-5 SEEN /hpf (0-5)
[2018-06-06 13:23] VITALS: BP 112/72; PULSE 86; RESP 16; O2SAT 98
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
--- NOTE | 2018-06-06 14:05 | ED.DEP ---
ED Disposition - Plan for ED Patient: Chief Complaint: Shortness of Breath Instructions: ED Chest Pain Atypical Unkn Cause Referrals: Care Physician,No Primary [Primary Care Provider] - Brenda Velarde MD [COURTESY STAFF PHYSICIAN] -
[2018-06-06 14:17] LABS: AST(SGOT) 11 U/L (15-37); Alanine Aminotransfer ALT/SGPT 21 U/L (13-56); Alkaline Phosphatase 73 U/L (45-117); Bilirubin, Direct 0.06 mg/dL (0.00-0.30); Globulin 3.8 g/dL (2.2-4.2); Lipase 137 U/L (73-393); Protein, Total 6.8 g/dL (6.4-8.2)
[2018-06-06 14:40] VITALS: BP 109/59; PULSE 71; RESP 16; O2SAT 98
== END 2018-06-06 14:41 | disposition home or self-care (01) ==
LOC: ED 08:41
PROVIDERS: Emergency Provider Emergency Medicine
DX: O26.892 Other specified pregnancy related conditions, second trimester (principal); R07.9 Chest pain, unspecified; O99.512 Diseases of the respiratory system complicating pregnancy, second trimester; J43.9 Emphysema, unspecified; O99.612 Diseases of the digestive system complicating pregnancy, second trimester; K82.4 Cholesterolosis of gallbladder; Z3A.17 17 weeks gestation of pregnancy
CPT/HCPCS: 71046; 71275; 76705; 76816; 80048; 80076; 81001; 83690; 83880; 84484; 85025; 93005; 96361; 96374; 96375; 99284; J7030; J7040; Q9967; J2405

== ENCOUNTER → 2018-06-08 07:51 | Outpatient (CLI) | payer OTHER, SELFPAY | DX: Z36.9 Encounter for antenatal screening, unspecified (principal) | CPT/HCPCS: 36415 ==

== ENCOUNTER 2018-08-19 15:13 | Outpatient (CLI) | payer OTHER, MEDICAID, SELFPAY ==
[2018-08-09 09:05] VITALS: BMI 41.1
[2018-08-19 15:47] VITALS: BMI 41.3
--- NOTE | 2018-08-19 22:43 | OB.TRI.NOTE ---
- Problem List (1) Decreased movement Status: Acute History of Present Illness Date of Service: 08/19/18 Was patient seen by the physician?: Yes Reason For Visit: DECREASED MOVEMENT Date of Service: 08/19/18 History of Present Illness: decreased movement Allergies venom-honey bee [bee venom (honey bee)] Allergy (Verified 08/19/18 15:51) Swelling - Pertinent Past Medical History Medical History: Past Medical History (Last Reviewed 08/09/18 @ 08:[address]) PTSD (post-traumatic stress disorder) (Acute) Emphysema lung (Chronic) PCP, no inhalers right now Surgical History: Past Surgical History (Last Reviewed 08/09/18 @ 08:[address]) H/O colonoscopy S/P tonsillectomy and adenoidectomy laser removal of condyloma NST - FHR Rate Baby A Baseline: 150 Variability:: Moderate Accelerations:: 10 x 10 Decelerations:: None NST Reactive:: Yes, Appropriate for gestational age FHR Category:: Category I Uterine Activity:: no regular ctx Impression/Plan decreased movememnt- reactive cat I tracing GA appropriate
== END 2018-08-19 16:35 | disposition home or self-care (01) ==
LOC: WPOUT 15:41 → WP 15:43
PROVIDERS: Visit Provider Obstetrics & Gynecology
DX: O36.8190 Decreased fetal movements, unspecified trimester, not applicable or unspecified (principal); Z3A.00 Weeks of gestation of pregnancy not specified
CPT/HCPCS: 59025; 59050; 99218; G0378

== ENCOUNTER → 2018-08-23 10:02 | Outpatient (CLI) | payer OTHER, MEDICAID, SELFPAY ==
[2018-08-23 09:41] VITALS: BMI 41.3
[2018-08-23 11:04] LABS: Absolute Lymphocyte Count 1.74 X10^3/ul (0.83-4.51); Absolute Neutrophil Count 7.6 X10^3/uL (2.0-7.7); Basophil# 0.01 X10^3/uL; Basophil% 0.1 % (0-1); Eosinophils% 1.9 % (0-5); Hematocrit 36.2 % (37-47); Hemoglobin 12.3 g/dl (12.0-15.0); Lymphocyte # 1.74 X10^3/ul (4.0); Mean Corpuscular Volume 85.4 fL (81-99); Mean Platelet Vol. 9.2 fl (6.2-12.0); Monocyte# 0.68 X10^3/uL; Monocyte% 6.6 % (0-10); Neutrophil # 7.61 X10^3/uL (2.7-7.7); Neutrophil % 74.2 % (47-70); POSITIVE COUNT NO; POSITIVE DIFFERENTIAL NO; POSITIVE MORPHOLOGY NO; Platelet Count 295 K/mm3 (150-450); RBC Distribution Width SD 40.6 fl (35.1-43.9); Red Blood Count 4.24 M/mm3 (4.2-5.4); White Blood Count 10.3 K/mm3 (4.4-11.0)
[2018-08-23 11:23] LABS: Glucose Challenge Gest 1H 50g 110 mg/dL (70-140)
== END ==
PROVIDERS: Visit Provider Nurse Practitioner Women's Health
DX: Z34.90 Encounter for supervision of normal pregnancy, unspecified, unspecified trimester (principal)
CPT/HCPCS: 36415; 82950; 85025; 86850; 86900

== ENCOUNTER 2018-08-29 22:28 | Emergency (ER) | payer OTHER, MEDICAID, SELFPAY ==
[2018-08-23 09:41] VITALS: BMI 41.3
[2018-08-29 22:29] VITALS: BP 118/73; PULSE 107; RESP 18; TEMP 36.6; O2SAT 98; BMI 42.0
--- NOTE | 2018-08-29 23:00 | RAD_ITS ---
STUDY: X-RAY CHEST REASON FOR EXAM: Female, 23 years old. Shortness of breath and cough for few days. TECHNIQUE: PA and lateral views of the chest. COMPARISON: 06/06/2018. FINDINGS: The lungs are clear and expanded. There is no demonstrated pleural abnormality. Normal size heart. Normal mediastinum and lynda. Normal visualized pulmonary arteries. Normal visualized aortic arch and descending thoracic aorta. Normal visualized thoracic spine. Normal visualized ribs, clavicles, and shoulders. There is no demonstrated abnormality of the visualized soft tissue structures of the upper abdomen. RAD/Chest PA and Lateral IMPRESSION: Normal x-ray examination of the chest. Electronically Signed: Tyler Cano MD at 23:14 EST Tel , Service support ,
--- NOTE | 2018-08-29 23:33 | ED.VISSUMM ---
- ER Visit Summary Date of Service: 08/29/18 Chief Complaint: Shortness of breath History of Present Illness: The patient is a 23 F who presents with shortness of breath. When she woke up about 4 hours ago she had some mild chest tightness cough and feels like her chest is congested. She reports chills no fevers. No vomiting. She is 28-1/2 weeks . She states that she felt dizzy at work last night and was worried that her blood pressure may be high so was worried about preeclampsia as well. She complains of decreased movement but has been seeing her OB about this. Physical Examination: Afebrile heart rate 107 Heart regular rate and rhythm Lungs are clear Abdomen soft Alert Test Results: Chest x-ray is normal. Sagpe-no-jzlo bedside ultrasound shows live IUP with heart rate of 150. Emergency Department Course and Treatment: Chest x-ray as above. Patient was advised on supportive care. She does not have an indication for antibiotics at this time. She was advised to follow-up with her BULL DRIVER. She was discharged. Treatment Plan: [] Disposition: Discharge Impression: Bronchitis This note was generated with [employer] dictation software. It may contain incorrect words, spelling, and punctuation that were not noted in review of the chart prior to signing ED Disposition - Plan for ED Patient: Chief Complaint: Shortness of Breath Referrals: Care Physician,No Primary [Primary Care Provider] -
--- NOTE | 2018-08-29 23:35 | ED.DEP ---
ED Disposition - Plan for ED Patient: Chief Complaint: Shortness of Breath Instructions: Acute Bronchitis Referrals: Care Physician,No Primary [Primary Care Provider] -
[2018-08-30 00:02] VITALS: BP 121/75; PULSE 84; RESP 18; O2SAT 98
== END 2018-08-30 00:05 | disposition home or self-care (01) ==
LOC: ED 23:43
PROVIDERS: Emergency Provider Emergency Medicine
DX: O99.512 Diseases of the respiratory system complicating pregnancy, second trimester (principal); J40 Bronchitis, not specified as acute or chronic; J44.9 Chronic obstructive pulmonary disease, unspecified; O99.333 Smoking (tobacco) complicating pregnancy, third trimester; O36.8120 Decreased fetal movements, second trimester, not applicable or unspecified; Z3A.28 28 weeks gestation of pregnancy
CPT/HCPCS: 71046; 99282

== ENCOUNTER → 2018-09-04 13:53 | Outpatient (CLI) | payer OTHER, MEDICAID, SELFPAY ==
[2018-09-04 09:00] VITALS: BMI 42.0
[2018-09-04 15:04] LABS: Amphetamine Urine VISTA NEGATIVE (<1000 ng/mL); Barbiturate Urine VISTA NEGATIVE (< 200 ng/mL); Benzodiazepine Urine VISTA NEGATIVE (< 200 ng/mL); Cocaine Urine VISTA NEGATIVE (< 300 ng/mL); Ecstacy Urine VISTA NEGATIVE (< 500 ng/mL); Methadone Urine VISTA NEGATIVE (< 300 ng/mL); PCP Urine VISTA NEGATIVE (< 25 ng/mL); THC Urine VISTA POSITIVE (< 50 ng/mL); Vista UDS pH Range 6
== END ==
PROVIDERS: Referring Provider Nurse Practitioner Women's Health; Visit Provider Nurse Practitioner Women's Health
DX: F43.10 Post-traumatic stress disorder, unspecified (principal)
CPT/HCPCS: 80307

== ENCOUNTER 2018-09-04 22:08 | Emergency (ER) | payer OTHER, MEDICAID, SELFPAY ==
[2018-09-04 09:00] VITALS: BMI 42.0
[2018-09-04 22:09] VITALS: BP 142/76; PULSE 111; RESP 18; TEMP 36.7; O2SAT 97; BMI 42.8
--- NOTE | 2018-09-04 22:57 | ED.DCSUM_ITS ---
- ER Visit Summary Date of Service: 09/04/18 Chief Complaint: Cough and dental pain History of Present Illness: The patient is a 23 F who is currently 29 weeks . She reports cough for the past 1 week. She also has left facial pressure has been blowing green mucus out of her nose. She is complaining of left upper dental pain as well. She denies fever or chills. Patient states she did have a sonogram today at the SENIOR ACTUARIAL ANALYST's office everything with the baby checked out okay. Physical Examination: Blood pressure is 142/76, temperature 98.0, heart rate 111, respiratory rate 18, pulse ox 97% on room air. Patient sitting upright in bed no acute distress. Head neck examination reveals TMs to be clear bilaterally. She has moist mucous membranes. Left maxillary third molar is broken on the posterior border. There is mild gum edema. No trismus. She has mild bilateral anterior cervical lymphadenopathy. She does have mild tenderness over the left maxillary S. Heart is regular rate and rhythm. Lungs sounds are clear. Abdomen is soft and nontender. Gravid uterus is noted. Test Results: [] Emergency Department Course and Treatment: Patient be treated with a course of Augmentin which will cover her sinus disease along with her dental pain and bronchitis. First dose will be given here. She is given a note for work tonight. Treatment Plan: [] Disposition: Discharge Impression: 1. Odontalgia 2. Sinusitis 3. Bronchitis This note was generated with [employer] dictation software. It may contain incorrect words, spelling, and punctuation that were not noted in review of the chart prior to signing ED Disposition - Plan for ED Patient: Chief Complaint: Cough Referrals: Care Physician,No Primary [Primary Care Provider] -
--- NOTE | 2018-09-04 22:57 | ED.DEP ---
ED Disposition - Plan for ED Patient: Disposition: Home or Assisted Living Chief Complaint: Cough Instructions: ED Tooth Pain, ED Sinusitis Abx Tx Prescriptions: Amox/Clavulanate Tablet [Augmentin Tablet] 875 mg PO Q12H #20 tablet Referrals: Susanne Bains MD [STAFF PHYSICIAN] -
[2018-09-04 23:14] VITALS: BP 132/62; PULSE 99; RESP 14; O2SAT 100
== END 2018-09-04 23:18 | disposition home or self-care (01) ==
PROVIDERS: Emergency Provider Emergency Medicine
DX: O99.613 Diseases of the digestive system complicating pregnancy, third trimester (principal); S02.5XXA Fracture of tooth (traumatic), initial encounter for closed fracture; K08.89 Other specified disorders of teeth and supporting structures; O99.513 Diseases of the respiratory system complicating pregnancy, third trimester; J40 Bronchitis, not specified as acute or chronic; J32.9 Chronic sinusitis, unspecified; K21.9 Gastro-esophageal reflux disease without esophagitis; O99.333 Smoking (tobacco) complicating pregnancy, third trimester; Z3A.29 29 weeks gestation of pregnancy
CPT/HCPCS: 99283

== ENCOUNTER → 2018-09-25 16:02 | Outpatient (CLI) | payer OTHER, MEDICAID, SELFPAY ==
[2018-09-25 11:32] VITALS: BMI 42.8
[2018-09-25 21:05] LABS: Chlamydia Trachomatis by PCR Negative (Negative); Neisserai gonorrhoeae by PCR Negative (Negative); Probe Check PASS; Sample Adequacy Control PASS; Specimen Processing Control PASS
== END ==
PROVIDERS: Referring Provider Nurse Practitioner Women's Health; Visit Provider Nurse Practitioner Women's Health
DX: A64 Unspecified sexually transmitted disease (principal); N76.0 Acute vaginitis
CPT/HCPCS: 87070; 87077; 87205; 87491; 87591

== ENCOUNTER 2018-10-09 13:24 | Outpatient (CLI) | payer OTHER, MEDICAID, SELFPAY ==
[2018-10-02 08:35] VITALS: BMI 42.8
[2018-10-09 13:49] VITALS: BMI 42.1
--- NOTE | 2018-10-11 21:17 | OB.TRI.NOTE ---
- Problem List (1) Abdominal trauma Status: Acute History of Present Illness Date of Service: 10/09/18 Was patient seen by the physician?: Yes Reason For Visit: EXTENDED MONITORING D/T FALL History of Present Illness: patient fell outside no head trauma, hit abdomen on her side, no cramping or bleeding just feeling sore, good fm Allergies venom-honey bee [bee venom (honey bee)] Allergy (Verified 10/02/18 08:30) Swelling - Pertinent Past Medical History Medical History: Past Medical History (Last Reviewed 10/02/18 @ 08:30 by Heavenly Harding) PTSD (post-traumatic stress disorder) (Acute) Emphysema lung (Chronic) PCP, no inhalers right now Surgical History: Past Surgical History (Last Reviewed 10/02/18 @ 08:30 by Heavenly Harding) H/O colonoscopy S/P tonsillectomy and adenoidectomy laser removal of condyloma NST - FHR Rate Baby A Baseline: 120 Variability:: Moderate Accelerations:: 15 x 15 Decelerations:: None NST Reactive:: Yes FHR Category:: Category I Uterine Activity:: irritability Impression/Plan abdominal trauma- monitored 4 hours and stable for dc to home
== END 2018-10-09 17:46 | disposition home or self-care (01) ==
LOC: WPOUT 13:28 → OBT 13:29
PROVIDERS: Referring Provider Obstetrics & Gynecology; Visit Provider Obstetrics & Gynecology
DX: O9A.219 Injury, poisoning and certain other consequences of external causes complicating pregnancy, unspecified trimester (principal); S39.91XA Unspecified injury of abdomen, initial encounter; W19.XXXA Unspecified fall, initial encounter; Y93.9 Activity, unspecified; Y92.9 Unspecified place or not applicable; Y99.9 Unspecified external cause status; Z3A.00 Weeks of gestation of pregnancy not specified
CPT/HCPCS: 59025; 59050; 99218; G0378

== ENCOUNTER → 2018-10-23 15:06 | Outpatient (CLI) | payer OTHER, MEDICAID, SELFPAY ==
[2018-10-23 09:02] VITALS: BMI 43.9
== END ==
PROVIDERS: Referring Provider Obstetrics & Gynecology; Visit Provider Obstetrics & Gynecology
DX: Z34.90 Encounter for supervision of normal pregnancy, unspecified, unspecified trimester (principal)
CPT/HCPCS: 87081

== ENCOUNTER → 2018-10-30 10:32 | Outpatient (CLI) | payer OTHER, MEDICAID, SELFPAY ==
[2018-10-30 09:13] VITALS: BMI 43.9
--- NOTE | 2018-10-30 10:35 | US_ITS ---
STUDY: SECOND AND THIRD TRIMESTER OBSTETRICAL ULTRASOUND - LIMITED REASON FOR EXAM: Female, 23 years old. growth assessment LMP: 04/14/2018 PRIOR ULTRASOUND: 06/06/2018 TECHNIQUE: Transabdominal TECHNICAL QUALITY: Adequate. FINDINGS: There is a single intrauterine fetus. The fetus is in a cephalic presentation. There is demonstrated cardiac activity with a heart rate of 128 bpm. There is a normal amniotic fluid volume. The largest amniotic fluid pocket measures 6.8 cm. The amniotic fluid index (CESRAIO) is 13 cm. The placenta is anterior in location and is not low lying. There are Grade 2 placental changes. The cervix was not measured. BIOMETRY: BPD: 9.2 cm: 37 weeks, 2 days HC: 32.8 cm: 37 weeks, 2 days AC: 31.9 cm: 35 weeks, 6 days FL: 7.1 cm: 36 weeks, 4 days Age by LMP: 37 weeks, 3 days. JADEN by LMP: 11/17/2018. age by prior US: 37 weeks, 2 days. JADEN by prior US: 11/16/2018. age by current US: 36 weeks, 6 days. JADEN by current US: 11/21/2018. Estimated weight: 2896 grams, +/- 423 grams, 29 percentile. Incidental note of the cord noted along the neck US/OB Limited With Biometrics IMPRESSION: Single live intrauterine at 36 weeks, 6 days by current ultrasound with AJDEN of 11/21/2018. Heart rate at 1 28 bpm. Normal growth noted since the previous study. Umbilical cord noted along the neck. Electronically Signed: Brennen Deal MD at 18:27 EDT , Service support ,
--- NOTE | 2018-10-30 10:38 | US_ITS ---
STUDY: OBSTETRICAL ULTRASOUND - BIOPHYSICAL PROFILE REASON FOR EXAM: Female, 23 years old. Post dates LMP: 04/14/2018 PRIOR ULTRASOUND: 06/06/2018 TECHNIQUE: Transabdominal TECHNICAL QUALITY: Adequate. FINDINGS: There is a single intrauterine fetus. The fetus is in a cephalic presentation. There is demonstrated cardiac activity with a heart rate of 121 bpm. There is a normal amniotic fluid volume. The largest amniotic fluid pocket measures 7.3 cm. The amniotic fluid index (CESARIO) is 13 cm. The placenta is anterior in location and is not low lying. There are Grade 2 placental changes. Age by LMP: 37 weeks, 3 days. JADEN by LMP: 11/17/2018. BIOPHYSICAL PROFILE: Breathing Movements (FBM): 2 Gross Body Movements (GBM): 2 Tone (FT): 2 Amniotic Fluid Volume (AFV): 2 TOTAL SCORE: 8 / 8 US/Biophysical Profile IMPRESSION: Normal biophysical profile of 8/8. CORD noted along the neck. Electronically Signed: Brennen Deal MD at 18:28 EDT , Service support ,
== END ==
PROVIDERS: Referring Provider Obstetrics & Gynecology; Visit Provider Obstetrics & Gynecology
DX: O09.90 Supervision of high risk pregnancy, unspecified, unspecified trimester (principal); Z36.9 Encounter for antenatal screening, unspecified; Z3A.00 Weeks of gestation of pregnancy not specified
CPT/HCPCS: 76816; 76818

== ENCOUNTER → 2018-11-10 12:54 | Outpatient (CLI) | payer OTHER, MEDICAID, SELFPAY ==
[2018-11-10 11:32] VITALS: BMI 44.6
--- NOTE | 2018-11-10 12:56 | US_ITS ---
STUDY: OBSTETRICAL ULTRASOUND - BIOPHYSICAL PROFILE REASON FOR EXAM: Female, 23 years old. non reactive NST decreased movement LMP: 02/10/2019 PRIOR ULTRASOUND: None. TECHNIQUE: Transabdominal and Transvaginal TECHNICAL QUALITY: Adequate. FINDINGS: There is a single intrauterine fetus. The fetus is in a cephalic presentation. There is demonstrated cardiac activity with a heart rate of 129 bpm. There is a normal amniotic fluid volume. The largest amniotic fluid pocket measures 4.2 cm. The amniotic fluid index (CESARIO) is 11.4 cm. The placenta is anterior in location and is not low lying. There are Grade 2 placental changes. Nuchal cord is noted. Age by LMP: 39 weeks, 0 days. JADEN by LMP: 11/17/2018. age by prior US: 38 weeks, 3 days. JADEN by prior US: 11/21/2018. BIOPHYSICAL PROFILE: Breathing Movements (FBM): 2 Gross Body Movements (GBM): 2 Tone (FT): 2 Amniotic Fluid Volume (AFV): 2 TOTAL SCORE: 8 / 8 US/Biophysical Profile IMPRESSION: Normal biophysical profile of 8/8. Nuchal cord is noted. N.B. : The above information has been verbally conveyed by Ayesha Canales to Susanne Bains on 11/10/2018 14:21:28 (ET). Electronically Signed: Ayesha Canales, at 14:22 EDT Tel , Service support ,
== END ==
PROVIDERS: Visit Provider Obstetrics & Gynecology
DX: O36.8190 Decreased fetal movements, unspecified trimester, not applicable or unspecified (principal); Z3A.00 Weeks of gestation of pregnancy not specified
CPT/HCPCS: 76818

== ENCOUNTER 2018-11-13 01:58 | Outpatient (CLI) | payer MEDICAID, SELFPAY ==
[2018-11-10 11:32] VITALS: BMI 44.6
[2018-11-13 02:30] VITALS: BMI 45.7
--- NOTE | 2018-11-13 04:22 | OB.TRI.PN ---
Progress Notes Date of Service: 11/13/18 Progress Note: Patient presented with contractions and vaginal bleeding and loss of mucous plug. Cervix 1-2 cm dilated heart tones 140s moderate variability reactive no decelerations Unity: Every 3 to 4 minutes mild Assessment and plan false labor reactive NST category 1 tracing overall reassuring DC home labor precautions kick counts
== END 2018-11-13 04:33 | disposition home or self-care (01) ==
LOC: WPOUT 02:19 → WP 02:19
PROVIDERS: Referring Provider Obstetrics & Gynecology; Visit Provider Obstetrics & Gynecology
DX: O47.9 False labor, unspecified (principal); Z3A.00 Weeks of gestation of pregnancy not specified
CPT/HCPCS: 59025; 59050; 99218; G0378

== ENCOUNTER 2018-11-14 04:48 | Inpatient (IN) | payer OTHER, MEDICAID, SELFPAY ==
[2018-11-13 02:30] VITALS: BMI 45.7
[2018-11-14] VITALS (12 sets, daily range): BP systolic 101–144; BP diastolic 41–91; PULSE 103–129; RESP 14–16; TEMP 36.2–36.8; O2SAT 96–98; BMI 44.9
--- NOTE | 2018-11-14 04:55 | PCM.HP.OB ---
- Problem List (1) Active labor at term Status: Acute (2) Obesity affecting in third trimester Status: Acute Comment: recommend growth scan q 4 weeks and weekly nsts after 36 weeks FU growth normal on 10/12 (3) Marijuana user Status: Acute Comment: quit smoking, random tox screens (4) PTSD (post-traumatic stress disorder) Status: Acute (5) Emphysema lung Status: Chronic Qualifiers: Comment: PCP, no inhalers right now (6) Supervision of high-risk Status: Acute Qualifiers: Comment: PRR JADEN:11/17/18 boy Guerrero unknown FOB. Alexis-male friend. (7) Status: Acute Qualifiers: Comment: Neg sequential screen; MFM US anatomy normal History Date of Admission: 11/14/18 Final JADEN: 11/17/18 Gestational age: 39 Weeks and 4 Days History of this : This is a 23 year-old, , at 39w4d weeks gestational age presents IAL 5-6 cm. she denies any vb or lof just has lots of mucous. she had initially mildly elevated blood pressures but they are within normal limits at home. Patient denies any significant headache or blurry vision. Patient has had a complicated by marijuana use but has abstained for the last month or more. Medical History: Medical History (Last Reviewed 11/10/18 @ 11:32 by Heavenly Harding) PTSD (post-traumatic stress disorder) (Acute) F43.10 Emphysema lung (Chronic) J43.9 PCP, no inhalers right now Surgical History: Surgical History (Last Reviewed 11/10/18 @ 11:32 by Heavenly Harding) H/O colonoscopy Z98.890 S/P tonsillectomy and adenoidectomy Z90.89 laser removal of condyloma Allergies venom-honey bee [bee venom (honey bee)] Allergy (Verified 11/14/18 00:59) Swelling Home Medications: Home Medications Pnv No.95/Ferrous Fum/Folic AC [ Caplet] 1 ea PO DAILY 09/04/18 Smoking Status: Current every day smoker Alcohol: None Number of Fetus(es): 1 Heart Tracin moderate variability reactive no decelerations category I tracing [place]: regular History Past Pregnancies: Past Pregnancies Delivery Date Name GA/Weeks Outcome Route Weight Infant Gender Labor Length Anesthesia Delivery Location Provider FOB Labs: Social History Smoking Status Current every day smoker Expected Delivery Method: Spontaneous Vaginal Review of Systems Constitutional: Denies: Fever, Malaise Eyes: Denies: Blurred vision, Vision Change HEENT: Denies: Head Aches, Visual Changes Cardiovascular: Denies: Chest Pain, Palpitations Respiratory: Denies: Cough, Shortness of Breath, Wheezing Gastrointestinal: Denies: Abdominal Pain, Diarrhea, Nausea, Vomiting Genitourinary: Denies: Dysuria, Hematuria Musculoskeletal: Denies: Joint Pain, Muscle pain Skin: Denies: Lesions, Rash Neurological: Denies: Blurred vision, Focal weakness, Headaches Psychiatric: Denies: Anxiety, Depression Endocrine: Denies: Heat/ Cold Intolerance Hematologic/ Lymphatic: Denies: Easy Bruising, Easy Bleeding Physical Exam General: Alert, Cooperative, No apparent distress HEENT: Atraumatic, Normocephalic. Negative for: Thyromegaly, Lymphadenopathy Cardiovascular: Regular rate Lungs: Normal air movement Abdomen: Soft, Non Tender, Gravid Neurological: Deep Tendon Reflexes 2+/4 and Symmetrical, Neuro grossly intact. 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 Negative for: Vulvar lesions Estimated gestational size: Appropriate for gestational size Presentation: Cephalic Cervix Dilation (cm): 5.5 Station: -2 Effacement (%): 70 Assessment/Plan All Active Problems (Last Reviewed 11/10/18 @ 11:32 by Heavenly Harding) Active labor at term (Acute) Obesity affecting in third trimester (Acute) Marijuana user (Acute) PTSD (post-traumatic stress disorder) (Acute) Supervision of high-risk (Acute) (Acute) Abdominal trauma (Resolved) Decreased movement (Resolved) This is a 23 year-old, at 39w4d weeks gestational age presents IAL Patient presents IAL, plan expectant management for , pitocin/AROM PRN if needed. Pain management: Plans minimal intervention. GBS negative. Management of any complications: check preeclampsia labs for elevated bps initially I have reviewed the [facility] and made any clinically relevant updates.
--- NOTE | 2018-11-14 04:58 | HP.PCM_ITS ---
- Problem List (1) Active labor at term Status: Acute (2) Obesity affecting in third trimester Status: Acute Comment: recommend growth scan q 4 weeks and weekly nsts after 36 weeks FU growth normal on 10/12 (3) Marijuana user Status: Acute Comment: quit smoking, random tox screens (4) PTSD (post-traumatic stress disorder) Status: Acute (5) Emphysema lung Status: Chronic Qualifiers: Comment: PCP, no inhalers right now (6) Supervision of high-risk Status: Acute Qualifiers: Comment: PRR JADEN:11/17/18 boy Guerrero unknown FOB. Alexis-male friend. (7) Status: Acute Qualifiers: Comment: Neg sequential screen; MFM US anatomy normal History Date of Admission: 11/14/18 Final JADEN: 11/17/18 Gestational age: 39 Weeks and 4 Days History of this : This is a 23 year-old, , at 39w4d weeks gestational age presents IAL 5-6 cm. she denies any vb or lof just has lots of mucous. she had initially mildly elevated blood pressures but they are within normal limits at home. Patient denies any significant headache or blurry vision. Patient has had a complicated by marijuana use but has abstained for the last month or more. Medical History: Medical History (Last Reviewed 11/10/18 @ 11:32 by Heavenly Harding) PTSD (post-traumatic stress disorder) (Acute) F43.10 Emphysema lung (Chronic) J43.9 PCP, no inhalers right now Surgical History: Surgical History (Last Reviewed 11/10/18 @ 11:32 by Heavenly Harding) H/O colonoscopy Z98.890 S/P tonsillectomy and adenoidectomy Z90.89 laser removal of condyloma Allergies venom-honey bee [bee venom (honey bee)] Allergy (Verified 11/14/18 00:59) Swelling Home Medications: Home Medications Pnv No.95/Ferrous Fum/Folic AC [ Caplet] 1 ea PO DAILY 09/04/18 Smoking Status: Current every day smoker Alcohol: None Number of Fetus(es): 1 Heart Tracin moderate variability reactive no decelerations category I tracing [place]: regular History Past Pregnancies: Past Pregnancies Delivery Date Name GA/Weeks Outcome Route Weight Infant Gender Labor Length Anesthesia Delivery Location Provider FOB Labs: Social History Smoking Status Current every day smoker Expected Delivery Method: Spontaneous Vaginal Review of Systems Constitutional: Denies: Fever, Malaise Eyes: Denies: Blurred vision, Vision Change HEENT: Denies: Head Aches, Visual Changes Cardiovascular: Denies: Chest Pain, Palpitations Respiratory: Denies: Cough, Shortness of Breath, Wheezing Gastrointestinal: Denies: Abdominal Pain, Diarrhea, Nausea, Vomiting Genitourinary: Denies: Dysuria, Hematuria Musculoskeletal: Denies: Joint Pain, Muscle pain Skin: Denies: Lesions, Rash Neurological: Denies: Blurred vision, Focal weakness, Headaches Psychiatric: Denies: Anxiety, Depression Endocrine: Denies: Heat/ Cold Intolerance Hematologic/ Lymphatic: Denies: Easy Bruising, Easy Bleeding Physical Exam General: Alert, Cooperative, No apparent distress HEENT: Atraumatic, Normocephalic. Negative for: Thyromegaly, Lymphadenopathy Cardiovascular: Regular rate Lungs: Normal air movement Abdomen: Soft, Non Tender, Gravid Neurological: Deep Tendon Reflexes 2+/4 and Symmetrical, Neuro grossly intact. 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 Negative for: Vulvar lesions Estimated gestational size: Appropriate for gestational size Presentation: Cephalic Cervix Dilation (cm): 5.5 Station: -2 Effacement (%): 70 Assessment/Plan All Active Problems (Last Reviewed 11/10/18 @ 11:32 by Heavenly Harding) Active labor at term (Acute) Obesity affecting in third trimester (Acute) Marijuana user (Acute) PTSD (post-traumatic stress disorder) (Acute) Supervision of high-risk (Acute) (Acute) Abdominal trauma (Resolved) Decreased movement (Resolved) This is a 23 year-old, at 39w4d weeks gestational age presents IAL Patient presents IAL, plan expectant management for , pitocin/AROM PRN if needed. Pain management: Plans minimal intervention. GBS negative. Management of any complications: check preeclampsia labs for elevated bps initially I have reviewed the [facility] and made any clinically relevant updates.
[2018-11-14] MEDS: 0.9% Saline Lock 10 ML Syringe IV (05:15)
[2018-11-14 05:33] LABS: Absolute Neutrophil Count 10.1 X10^3/uL (2.0-7.7); Basophil# 0.03 X10^3/uL; Basophil% 0.2 % (0-1); Eosinophil# 0.26 X10^3/uL; Eosinophils% 1.9 % (0-5); Lymphocyte % 14.2 % (19-41); Mean Corp Hgb Conc 33.3 g/gl (32-36); Mean Corpuscular Hgb 29.1 pg (27.0-32.0); Mean Corpuscular Volume 87.2 fL (81-99); Mean Platelet Vol. 10.1 fl (6.2-12.0); Monocyte# 1.02 X10^3/uL; Monocyte% 7.6 % (0-10); Neutrophil # 10.09 X10^3/uL (2.7-7.7); Neutrophil % 75.8 % (47-70); Platelet Count 376 K/mm3 (150-450); RBC Distribution Width CV 13.6 % (11.6-14.6); RBC Distribution Width SD 42.1 fl (35.1-43.9); Red Blood Count 4.47 M/mm3 (4.2-5.4); White Blood Count 13.3 K/mm3 (4.4-11.0)
[2018-11-14 05:35] LABS: POSITIVE COUNT NO; POSITIVE DIFFERENTIAL NO; POSITIVE MORPHOLOGY NO
[2018-11-14 05:39] LABS: Prothrombin Time (Protime)PT. 12.5 SECONDS (11.7-14.9)
[2018-11-14 05:40] LABS: Partial Thromboplast Time 30.5 Seconds (24.1-36.2)
[2018-11-14 05:41] LABS: Vista UDS pH Range 5
[2018-11-14 05:49] LABS: Amphetamine Urine VISTA NEGATIVE (<1000 ng/mL); Barbiturate Urine VISTA NEGATIVE (< 200 ng/mL); Benzodiazepine Urine VISTA NEGATIVE (< 200 ng/mL); Cocaine Urine VISTA NEGATIVE (< 300 ng/mL); Ecstacy Urine VISTA NEGATIVE (< 500 ng/mL); Methadone Urine VISTA NEGATIVE (< 300 ng/mL); PCP Urine VISTA NEGATIVE (< 25 ng/mL); THC Urine VISTA NEGATIVE (< 50 ng/mL)
[2018-11-14 05:52] LABS: Uric Acid 3.9 mg/dL (2.6-6.0)
[2018-11-14 06:22] LABS: ALB/GLOB Ratio 0.6 RATIO (0.9-2.4); AST(SGOT) 15 U/L (15-37); Alanine Aminotransfer ALT/SGPT 20 U/L (13-56); Albumin, Serum 2.4 g/dL (3.2-5.0); Alkaline Phosphatase 110 U/L (45-117); Anion Gap 6 (5-15); BUN 13 mg/dL (7-18); BUN/Creat Ratio 25.1 RATIO (10-20); Calcium,Total 8.1 mg/dL (8.5-10.1); Chloride 108 mmol/L (98-107); Creatinine, Serum 0.52 mg/dL (0.55-1.02); EST Glomerular Filtration Rate 154 mL/min (>60); Est Glom Filt Rate - Afr Amer 186 mL/min (>60); Globulin 3.7 g/dL (2.2-4.2); Glucose 93 mg/dL (74-106); Potassium 4.1 mmol/L (3.5-5.1); Protein, Total 6.1 g/dL (6.4-8.2); Sodium Level 136 mmol/L (136-145)
[2018-11-14 06:39] LABS: Protein, Urine (Random) 9.9 mg/dL (<11.9); Protein:Creat Ratio 140 mg/g CRE (0-200)
[2018-11-14] MEDS: Oxytocin 30 units/NS 500 ml 30 UNITS/500 ML IV.SOLN IV (08:21)
[2018-11-14] MEDS: Lactated Ringers 1,000 ML 50 ML IV ×3 (08:22→15:51)
[2018-11-14] MEDS: Acetaminophen 325 MG Tablet PO (11:49)
[2018-11-14] MEDS: Amnioinfusion- 0.9% NS 1,000 ML IV.SOLN. INTRA-UTER ×2 (11:57→16:05)
--- NOTE | 2018-11-14 12:50 | NURSING ---
epidural placement unsuccessful at this time. pt given 50mg Demerol IVP as ordered by Dr. Lund. Dr. Lund will return to attempt placement again
[2018-11-14] MEDS: fentaNYL-bupivacaine (epidural) 100 ML BAG EPIDURAL (15:06)
[2018-11-14] MEDS: Nalbuphine 10 MG/ML Ampul IV (15:57)
[2018-11-14] MEDS: Ondansetron 4 MG/2 ML Vial IV (18:48)
[2018-11-14] MEDS: Sodium Citrate/Citric Acid 30 ML UDC PO (19:05)
--- NOTE | 2018-11-14 19:11 | PCM.OPRPT ---
Problem List (1) Active labor at term Status: Acute (2) Obesity affecting in third trimester Status: Acute Comment: recommend growth scan q 4 weeks and weekly nsts after 36 weeks FU growth normal on 10/12 (3) Marijuana user Status: Acute Comment: quit smoking, random tox screens (4) PTSD (post-traumatic stress disorder) Status: Acute (5) Emphysema lung Status: Chronic Qualifiers: Comment: PCP, no inhalers right now (6) Supervision of high-risk Status: Acute Qualifiers: Comment: PRR JADEN:11/17/18 boy Guerrero unknown FOB. Alexis-male friend. (7) Status: Acute Qualifiers: Comment: Neg sequential screen; MFM US anatomy normal (8) Arrest of dilation, delivered, current hospitalization Status: Acute (9) heart rate deceleration, delivered, current hospitalization Status: Acute Delivery Classification: DOUG Final JADEN: 11/16/18 Gestational age: 39 Weeks and 5 Days Indications: minimal cervical change in 13 hours, 4 hours with adequate pitocin, recurrent variables Indications for : Distress, Arrrest of Descent Description of Procedure: Spinal anesthesia was placed without difficulty. Simpson catheter was placed. The patient was placed in the dorsal supine position with leftward tilt. Patient was prepped and draped in the normal sterile fashion. Pfannenstiel skin incision was made with the scalpel and carried through to the underlying layer of fascia with the scalpel. Fascia was nicked in the midline and the incision extended laterally. The rectus bellies were dissected off superiorly and inferiorly with out complication both sharply and bluntly. The peritoneum was entered digitally. The incision was stretched and a low transverse uterine incision was made with the scalpel. The infant's head was delivered atraumatically followed by the anterior and posterior shoulders without complication the rest of the delivered. The cord was clamped and cut and the infant was handed off to awaiting nurse. The placenta was delivered spontaneously immediately following and was noted to be intact and have a three-vessel cord. The uterus was exteriorized cleared of all clots and debris, and the incision was closed in a double layer closure using #1 Monocryl. The uterus was returned to the maternal abdomen and gutters were cleared of all clots and debris. The ovaries and fallopian tubes were noted to be within normal limits. The peritoneum was closed with 3-0 Monocryl in a running fashion. Fascia was closed with 0 PDS in a running fashion. Subcutaneous tissue was copiously irrigated and the skin was closed with 3-0 Monocryl in a subcuticular fashion. Steri-Strips and Mepilex dressing were applied without complication. Patient was taken to recovery in stable condition. Amniotic Membrane Rupture Type: Spontaneous Amniotic Fluid Description: Moderate meconium Placenta Disposition: [facility] Drain: Simpson to straight drain Cord Entanglement: Around neck x 2, tight Nuchal Cord Compression: With compression Cord Vessel Description: 3 Vessels Esitmated Blood Loss (ml): 600 Gender: Male Delayed cord clamping: Yes Pre-op Antibiotic Given: - - azithromycin Complications: None - Admit VTE Documentation VTE Present on Admission: No VTE Mechan Device Prophylaxis: SCD's
[2018-11-14] MEDS: Oxytocin 30 units/NS 500 ml 30 UNITS/500 ML IV.SOLN 167 UNITS IV (23:06)
[2018-11-14] MEDS: Cefazolin 2 GM in 0.9% Normal Saline 100 ML IV (23:07)
[2018-11-14] MEDS: Lactated Ringers 1,000 ML 999 ML IV (23:07)
[2018-11-15] VITALS (18 sets, daily range): BP systolic 95–131; BP diastolic 58–79; PULSE 80–110; RESP 14–20; TEMP 36.1–37.2; O2SAT 94–99
--- NOTE | 2018-11-15 01:05 | NURSING ---
Received report for continuation of care
[2018-11-15] MEDS: Ketorolac 30 MG/ML Syringe IV ×3 (01:57→13:23)
[2018-11-15] MEDS: Lactated Ringers 1,000 ML 100 ML IV (06:08)
[2018-11-15 06:27] LABS: Hemoglobin 11.1 g/dl (12.0-15.0); Mean Corp Hgb Conc 33.6 g/gl (32-36); Mean Corpuscular Hgb 28.7 pg (27.0-32.0); Mean Corpuscular Volume 85.3 fL (81-99); Mean Platelet Vol. 9.2 fl (6.2-12.0); Platelet Count 270 K/mm3 (150-450); RBC Distribution Width CV 13.6 % (11.6-14.6); RBC Distribution Width SD 42.1 fl (35.1-43.9); Red Blood Count 3.87 M/mm3 (4.2-5.4); White Blood Count 16.4 K/mm3 (4.4-11.0)
[2018-11-15 06:30] LABS: Scan Indicated on CBC? Y/N NO
--- NOTE | 2018-11-15 09:45 | PCM.PN.OB ---
Patient Problems: Active and Suspected Problems (Last Reviewed 11/10/18 @ 11:32 by Heavenly Harding) Active labor at term (Acute) Arrest of dilation, delivered, current hospitalization (Acute) heart rate deceleration, delivered, current hospitalization (Acute) Subjective: doing well no complaints pain controlled no CP SOB N V, up in chair, well tolerating po lochia moderate, going well - Physical Exam General: Alert, Oriented x3 Abdomen: Soft, Non-Distended, - - Dressing dry and intact. FF below U. Minimal pain with exam Vital Signs Temp Pulse Resp BP Pulse Ox 97.0 F L 110 H 18 117/58 L 95 11/15/18 08:00 11/15/18 08:00 11/15/18 08:00 11/15/18 08:00 11/15/18 08:00 Oxygen Delivery Method Room Air Weight: 255 lb 11.779 oz Body Mass Index (BMI) 44.9 Intake and Output for Last 24 Hours 11/13/18 11/14/18 11/15/18 23:59 23:59 23:59 Intake Total 3907 / 3907 1250 / 1250 Output Total 2550 / 2550 1500 / 1500 Balance 1357 / 1357 -250 / -250 Laboratory Tests Past 24 Hrs 11/15/18 06:10 WBC 16.4 H RBC 3.87 L Hgb 11.1 L Hct 33.0 L MCV 85.3 MCH 28.7 MCHC 33.6 RDW 13.6 RDW Differential 42.1 Plt Count 270 MPV 9.2 Medical Necessity - Tobacco Use Smoking Status: Heavy Smoker (>10/day) Assessment/Plan All Active Problems (Last Reviewed 11/10/18 @ 11:32 by Heavenly Harding) Active labor at term (Acute) Arrest of dilation, delivered, current hospitalization (Acute) heart rate deceleration, delivered, current hospitalization (Acute) Obesity affecting in third trimester (Acute) Marijuana user (Acute) PTSD (post-traumatic stress disorder) (Acute) Supervision of high-risk (Acute) (Acute) Abdominal trauma (Resolved) Decreased movement (Resolved) s/p LTCS PPD # 1 1. routine post care 2. breast feeding- support given 3. rh positive 4. rubella immune
[2018-11-15] MEDS: Enoxaparin 40 MG/0.4 ML Syringe SC (10:10)
[2018-11-15] MEDS: Acetaminophen 500 MG Tablet 1000 MG PO (11:47)
[2018-11-15] MEDS: Albuterol 2.5 MG/3 ML VIAL.NEB. INHALATION ×2 (13:07→21:00)
[2018-11-15] MEDS: Prenatal Vits Tablet 1 TABLET PO (13:23)
--- NOTE | 2018-11-15 16:45 | CASEMGMT ---
Social Work Labor and Delivery Unit Social work consult received and noted. Chart has been reviewed. Plan: See patient/mother of baby for assessment on 11-16-2018. -KAREN Reed, DONOR CENTER TECHNICIAN
[2018-11-15] MEDS: oxyCODONE 5 MG Tablet PO (20:23)
[2018-11-16] VITALS (7 sets, daily range): BP systolic 120–144; BP diastolic 75–89; PULSE 93–118; RESP 18–24; TEMP 36.1–36.7; O2SAT 95–97
[2018-11-16] MEDS: Naproxen 250 MG Tablet PO ×3 (00:01→21:41)
[2018-11-16] MEDS: Senna/Docusate Sodium 1 Tablet PO (02:25)
[2018-11-16] MEDS: oxyCODONE 5 MG Tablet PO ×4 (02:26→20:09)
--- NOTE | 2018-11-16 07:40 | PCM.PN.OB ---
Patient Problems: Active and Suspected Problems (Last Reviewed 11/10/18 @ 11:32 by Heavenly Harding) Active labor at term (Acute) Arrest of dilation, delivered, current hospitalization (Acute) heart rate deceleration, delivered, current hospitalization (Acute) Subjective: doing well no complaints pain controlled no CP SOB N V ambulating well tolerating po lochia moderate, going well - Physical Exam General: Alert, Oriented x3 Abdomen: Soft, Non-Distended, - - Dressing dry and intact. FF below U Vital Signs Temp Pulse Resp BP Pulse Ox 97.0 F L 108 H 18 123/89 H 97 11/16/18 03:15 11/16/18 03:15 11/16/18 03:15 11/16/18 03:15 11/15/18 17:50 Oxygen Delivery Method Room Air Weight: 255 lb 11.779 oz Body Mass Index (BMI) 44.9 Intake and Output for Last 24 Hours 11/14/18 11/15/18 11/16/18 23:59 23:59 23:59 Intake Total 3907 / 3907 1650 / 1650 Output Total 2550 / 2550 2900 / 2900 Balance 1357 / 1357 -1250 / -1250 Medical Necessity - Tobacco Use Smoking Status: Heavy Smoker (>10/day) Assessment/Plan All Active Problems (Last Reviewed 11/10/18 @ 11:32 by Heavenly Harding) Active labor at term (Acute) Arrest of dilation, delivered, current hospitalization (Acute) heart rate deceleration, delivered, current hospitalization (Acute) Obesity affecting in third trimester (Acute) Marijuana user (Acute) PTSD (post-traumatic stress disorder) (Acute) Supervision of high-risk (Acute) (Acute) Abdominal trauma (Resolved) Decreased movement (Resolved) s/p LTCS PPD # 2 1. routine post care 2. breast feeding- support given 3. rh positive 4. rubella immune 5. plans home tomorrow
[2018-11-16] MEDS: Albuterol 2.5 MG/3 ML VIAL.NEB. INHALATION ×2 (09:56→20:36)
[2018-11-16] MEDS: Enoxaparin 40 MG/0.4 ML Syringe SC (11:45)
[2018-11-16] MEDS: Prenatal Vits Tablet 1 TABLET PO (12:58)
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
[2018-11-17] MEDS: oxyCODONE 5 MG Tablet PO ×3 (00:34→17:18)
[2018-11-17 02:50] VITALS: BP 115/58; PULSE 78; RESP 18; TEMP 36.7; O2SAT 95
[2018-11-17] MEDS: Acetaminophen/Butalbital/Caffe 1 Tablet PO (04:49)
[2018-11-17] MEDS: Naproxen 250 MG Tablet PO ×2 (06:37→19:55)
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
--- NOTE | 2018-11-17 08:00 | DCINST_ITS ---
Discharge Diet: No Restrictions Discharge Activity: May Not Drive - for 2 weeks, May not drive while taking narcotic pain medications., May Shower, May Take a Tub Bath - in 7 days May resume sexual activity in: 4-6 weeks Lifting Restrictions: 20 pounds Additional Activity Instructions:: Nothing in the vagina for 4-6 weeks. You may return to work/school in 6 weeks. Call your doctor if your incision/area has: Continuous Slow Oozing, Sudden Increased Bleeding, Increased Pain/ Swelling, Increased Redness, Foul Smelling Discharge Call your doctor if you observe: Fever of 101 or Higher, Using more than one pad per hour - for 2 hours Suture Line Care: Avoid Pulling/Pushing, Avoid Pinching/Bending Cleanse incision/area with: Keep Dressing Clean & Dry Additional Instructions: If you experience any of the following, contact your healthcare provider. * Bleeding that soaks a pad every hour for 2 hours * Fever 100.4 or higher * Unrelieved incision or abdominal pain * Swelling, redness, discharge or bleeding from your incision or episiotomy site * Your incision begins to separate * Problems urinating (including inability to urinate or burning while urinating). * Visual changes * Severe headache * Flu-like symptoms * Pain or redness in one of both of your breasts * Pain, warmth, tenderness or swelling in your legs, especially the calf area * Frequent nausea and vomiting * Symptoms of depression or anxiety If you experience any of the following, call 911 or go to the nearest Emergency Room. * Chest pain * Problems breathing * Seizure activity * Partial or complete paralysis of a body part, slurred speech, weakness or drooping of the face, or a sudden inability to walk or hold your balance Allergies/Adverse Reactions: Allergies venom-honey bee [bee venom (honey bee)] Allergy (Verified 11/14/18 00:59) Swelling Medications to take at Discharge Pnv No.95/Ferrous Fum/Folic AC [ Caplet] 1 ea PO DAILY 09/04/18 Albuterol Inhaler [Ventolin Hfa] 1 - 2 puff INHALATION Q6H PRN PRN #1 inhaler 11/17/18 Naproxen [Naprosyn] 250 - 500 mg PO Q8H PRN PRN #30 tablet 11/17/18 Oxycodone HCl/Acetaminophen [Percocet 5-325] 1 - 2 tablet PO Q4H PRN PRN 7 Days #28 tablet 11/17/18 The following prescriptions were given: Oxycodone HCl/Acetaminophen [Percocet 5-325] 1 - 2 tablet PO Q4H PRN PRN 7 Days #28 tablet PRN Reason: Moderate-Severe pain Albuterol Inhaler [Ventolin Hfa] 1 - 2 puff INHALATION Q6H PRN PRN #1 inhaler PRN Reason: Shortness Of Breath Naproxen [Naprosyn] 250 - 500 mg PO Q8H PRN PRN #30 tablet PRN Reason: MILD PAIN Follow-Up: Call to make an appointment with your doctor for an incision check in 1-2 weeks. You will also need a 6 week post- follow up appointment. Test results from this visit will be discussed in further detail at your follow- up appointment, if applicable. Please Follow Up With: Susanne Bains MD - Call to make an appointment for an incision check in 1-2 [phone] When: You will need a post- check in 6 weeks. Primary Care Physician: Care Physician,No Primary [Primary Care Provider] -
--- NOTE | 2018-11-17 08:00 | PCM.PN.OB ---
Patient Problems: Active and Suspected Problems (Last Reviewed 11/10/18 @ 11:32 by Heavenly Harding) Active labor at term (Acute) Arrest of dilation, delivered, current hospitalization (Acute) heart rate deceleration, delivered, current hospitalization (Acute) Subjective: co some cough today but no fevers, lochia moderate, pain controlled - Physical Exam General: Alert, Oriented x3 Vital Signs Temp Pulse Resp BP Pulse Ox 98.0 F 78 18 115/58 L 95 11/17/18 02:50 11/17/18 02:50 11/17/18 02:50 11/17/18 02:50 11/17/18 02:50 Oxygen Delivery Method Room Air Weight: 255 lb 11.779 oz Body Mass Index (BMI) 44.9 Intake and Output for Last 24 Hours 11/15/18 11/16/18 11/17/18 23:59 23:59 23:59 Intake Total 1650 / 1650 Output Total 2900 / 2900 Balance -1250 / -1250 Medical Necessity - Tobacco Use Smoking Status: Heavy Smoker (>10/day) Assessment/Plan All Active Problems (Last Reviewed 11/10/18 @ 11:32 by Heavenly Harding) Active labor at term (Acute) Arrest of dilation, delivered, current hospitalization (Acute) heart rate deceleration, delivered, current hospitalization (Acute) Obesity affecting in third trimester (Acute) Marijuana user (Acute) PTSD (post-traumatic stress disorder) (Acute) Supervision of high-risk (Acute) (Acute) Abdominal trauma (Resolved) Decreased movement (Resolved) s/p LTCS PPD # 3 1. routine post care 2. breast feeding- support given 3. rh positive 4. rubella immune
--- NOTE | 2018-11-17 08:03 | PCM.DC.SUM ---
Discharge Date and Diagnosis - Problem List Patient Problems: Active and Suspected Problems (Last Reviewed 11/10/18 @ 11:32 by Heavenly Harding) Active labor at term (Acute) Arrest of dilation, delivered, current hospitalization (Acute) heart rate deceleration, delivered, current hospitalization (Acute) Date of Admission: 11/14/18 Date of Discharge: 11/17/18 - Primary Discharge Diagnosis Active and Suspected Problems (Last Reviewed 11/10/18 @ 11:32 by Heavenly Harding) Active labor at term (Acute) Arrest of dilation, delivered, current hospitalization (Acute) heart rate deceleration, delivered, current hospitalization (Acute) - Secondary Discharge Diagnosis Chronic Problems (Last Reviewed 11/10/18 @ 11:32 by Heavenly Harding) Emphysema lung (Chronic) PCP, no inhalers right now Hospital Course and Treatment Consultations 11/14/18 04:59 Consult: Anesthesia Routine Comment: Reason For Exam: LABOR 11/14/18 06:39 Consult: Mental Health/Crisis Routine Reason for consult?: H/O marijuana use H/O suicidal attempts, depression, anxiety, PTSD Date Notified:: 11/14/18 Time notified:: 07:00 Operations: - - Procedures: None Summary of Care Provided: The patient is a 23 year old F patient presented IAL and after an arrest of dilation she underwent a section and had a routine recovery with a return of bowel and bladder function, was ambulating, voiding, and tolerating po, and was stable for discharge to home on POD 3. Patient Problems: Active and Suspected Problems (Last Reviewed 11/10/18 @ 11:32 by Heavenly Harding) Active labor at term (Acute) Arrest of dilation, delivered, current hospitalization (Acute) heart rate deceleration, delivered, current hospitalization (Acute) - Physical Exam Vital Signs Temp Pulse Resp BP Pulse Ox 98.0 F 78 18 115/58 L 95 11/17/18 02:50 11/17/18 02:50 11/17/18 02:50 11/17/18 02:50 11/17/18 02:50 Oxygen Delivery Method Room Air Weight: 255 lb 11.779 oz Body Mass Index (BMI) 44.9 Intake and Output for Last 24 Hours 11/15/18 11/16/18 11/17/18 23:59 23:59 23:59 Intake Total 1650 / 1650 Output Total 2900 / 2900 Balance -1250 / -1250 Discharge Diet: No Restrictions Discharge Activity: May Not Drive - for 2 weeks, May not drive while taking narcotic pain medications., May Shower, May Take a Tub Bath - in 7 days May resume sexual activity in: 4-6 weeks Additional Activity Instructions:: Nothing in the vagina for 4-6 weeks. You may return to work/school in 6 weeks. Call your doctor if your incision/area has: Continuous Slow Oozing, Sudden Increased Bleeding, Increased Pain/ Swelling, Increased Redness, Foul Smelling Discharge Call your doctor if you observe: Fever of 101 or Higher, Using more than one pad per hour - for 2 hours Suture Line Care: Avoid Pulling/Pushing, Avoid Pinching/Bending Cleanse incision/area with: Keep Dressing Clean & Dry Home Medications: Medications to take at Discharge Pnv No.95/Ferrous Fum/Folic AC [ Caplet] 1 ea PO DAILY 09/04/18 Albuterol Inhaler [Ventolin Hfa] 1 - 2 puff INHALATION Q6H PRN PRN #1 inhaler 11/17/18 Naproxen [Naprosyn] 250 - 500 mg PO Q8H PRN PRN #30 tablet 11/17/18 Oxycodone HCl/Acetaminophen [Percocet 5-325] 1 - 2 tablet PO Q4H PRN PRN 7 Days #28 tablet 11/17/18 Following Prescrptions Were Given to Patient: Oxycodone HCl/Acetaminophen [Percocet 5-325] 1 - 2 tablet PO Q4H PRN PRN 7 Days #28 tablet PRN Reason: Moderate-Severe pain Albuterol Inhaler [Ventolin Hfa] 1 - 2 puff INHALATION Q6H PRN PRN #1 inhaler PRN Reason: Shortness Of Breath Naproxen [Naprosyn] 250 - 500 mg PO Q8H PRN PRN #30 tablet PRN Reason: MILD PAIN Primary Care Physician: Care Physician,No Primary [Primary Care Provider] - Please Follow Up With: Susanne Bains MD - Call to make an appointment for an incision check in 1-2 [phone] When: You will need a post- check in 6 weeks. Medical Necessity - Tobacco Use Smoking Status: Heavy Smoker (>10/day) Meaningful Use Info Meaningful Use Diagnoses (Choose all that apply): None applicable
[2018-11-17 09:00] VITALS: BP 147/94; PULSE 86; RESP 18; TEMP 36.7
--- NOTE | 2018-11-17 10:30 | CASEMGMT ---
Social Work Labor and Delivery Unit Summary: Reviewed medical record and noted nursing documentation reflecting mother of baby (MOB) having some anxiety about caring for baby alone at home, not knowing what to do, and stress with potential father of baby (FOB) who has not been taking psychiatric medications to be able to stay up and care for baby. Called [facility] ([facility]), , and spoke with Libertad King. Referral given due to substance exposed infant to marijuana in utero, as well as reports of CBD oil. Reported positive drug screens during , negative a delivery, and pending meconium drug screen for baby. Reported concerns about untreated maternal mental health issues and history, paternity issues with reports of police being called during regarding the potential father who has been one of MOB?s support people at hospital. Reported multiple social stressors (transportation issues, working 3rd shift which MOB reports makes it hard to access community resources, financial stress while off of work). Reported question about support system, though MOB reports this to be good, noted documentation by nursing as to MOB?s voiced anxiety about doing it alone with baby at home. Let Libertad know that MOB had refused a [facility] referral, reports cannot get into WIC for a month; reporting plan to look into food assistance while on reduced income. Libertad asked to be called back with an update after this news writer sees MOB again. Plan: Social Work to follow up with MOB this date. -KAREN Reed, DYNAMOMETER MECHANIC
[2018-11-17] MEDS: Prenatal Vits Tablet 1 TABLET PO (12:23)
[2018-11-17] MEDS: Enoxaparin 40 MG/0.4 ML Syringe SC (12:23)
--- NOTE | 2018-11-17 13:00 | CASEMGMT ---
Social Work Labor and Delivery 1110: Attempted to see MOB for follow up regarding support, transportation, HMG, mental health referrals, and reported discord between MOB and potential FOB Gomez. MOB sitting in bed in the dark and asked that social workers come back later. Passed acura sales consultant in the petty who was just about to assist MOB with a feeding. 1230: Returned to MOB?s room. MOB?s grandmother Maya also present. MOB reports it is okay to talk about anything in front of Maya and that Maya ?will find out? anyway. MOB reports to be very tired as just have taken 2 Oxy pain pills, to have sinus and spinal headaches, on top of only having ?8 hours of sleep in 4 days.? Let MOB know that needed to address a few things: Transportation: MOB reports plan to drive self home from hospital. Reports Gomez may be able to drive but that MOB prefers to drive own car. Inquired whether MOB could have grandmother or mom help with driving home and MOB reported that will be driving self home as it has ?been 3 days? since had surgery and not taking pain pills so can drive. Let MOB know that this television writer understands there to be restrictions on driving after survey, such as 2 weeks at least. MOB reports belief that can drive self home, that the doctor okayed this and that won?t be taking pain medications before driving. Agency/Program Involvement: [facility] - Broached whether MOB will reconsider this option for more support. MOB reports to have ?too much on my plate right now? and ?will get to them when I get to them.? [facility] - MOB reports that still needs to call [facility] but has had too much to do. Mental Health: MOB reports to have resources already to seek out mental health treatment, that may look at some counseling options, but right now feels to be doing okay. MOB report ?will reach out if I need it.? MOB denies any thoughts of self-harm or dying since last spoke to this television writer. MOB reports to continue to have positive feelings for the baby. depression: Reviewed with MOB a packet on depression. Broached with MOB that some women do develop psychosis. MOB?s response to this education is that has enough friends who are babysitters that MOB can leave the baby with. MOB reports would then call [facility] go to the Emergency Department. Support system: Inquired whether MOB feels to have adequate support at this time, as MOB does live alone and in light of MOB's expressed concern to nursing staff this morning. With social work inquiry, MOB reports plan that Gomez will be staying with MOB for a time to help with the baby. MOB reports at grandmother Maya is ?at my sotelo and call? if needs additional help, as well as MOB?s mom Lakshmi willing to help when not working. MOB reports to feel this is adequate support at home going. Dynamics between MOB and potential FOB Gomez Fournier: Broached with MOB the reports this television writer received about tension between MOB and FOB. MOB reports FOB is just tired at this time, that FOB was upset earlier when the audio video technician came in to provide education about the baby. MOB reports Arcadia is present currently so that MOB and Gomez can both sleep. MOB reports Gomez is out in the car sleeping at this time. MOB reports FOB has been off psychiatric medication of Seroquel in order to stay awake and help care for baby. This television writer attempted to explore how Gomez being off medications will be a helpful thing when MOB has previously indicated that FOB had issues before, when living with MOB and not on medications. MOB reports ?it will be different? when can be at home and not having nurses waking MOB and Gomez up. MOB denies any safety concerns with having Gomez return home with MOB and baby off of medication. Assessment: MOB sitting in darkened room during this visit. MOB voices agreement to talk freely in front of grandmother. The grandmother stood in the back of the room, reading during conversation; no input provided by Arcadia. Grandmother smiling and pleasant, making room for protective services social worker to sit. MOB willing to participate in conversation but was given a choice to have protective services social worker come back. MOB voices hope that can get talking out of the way and get some sleep while Arcadia is here. MOB reports not to be feeling good due to spinal and sinus headaches. MOB had eyes closed for most of social work visit, answering questions abruptly, but as MOB got talking and protective services social worker asked less question MOB talked more freely and opened eyes when talking (fair eye contact). MOB apologetic several time during social work visit today, apologizing for having eyes closed. MOB held baby to breast during social work visit, was gente, and talked to baby when baby started to cry though no other bonding cues noted as MOB had baby to breast, held baby to breast, and had eyes closed. MOB resistant to accepting any type of referrals for community support, and reports at this time to have adequate support despite anxiety voiced to nursing earlier this date, about worries on how will care for baby alone at home. MOB accepting of community resources lists offered as well as packet on postpump depression. Resources given have counseling and drug and alcohol treatment options listed should MOB be interested or change mind in the future about outpatient care. MOB accepting of the fact that this television writer may need to come back in again for a face to face should children services have questions this television writer unable to answer. Plan: At this time, plan is for MOB and baby to discharge home when ready. MOB is stating plan for potential FOB to help at home and denies any safety issues or concerns with this plan, despite history and Gomez?s reported irritability with MOB this date. Will be calling [facility] a second time today to update to conversation with MOB today. Plan to leave a more comprehensive list with nursing to give to MOB with discharge instructions, as was MOB?s preference that this television writer not interrupt MOB again so that can sleep. -NICOLETTE Reed, WARM IN WORKER
[2018-11-17 14:00] VITALS: BP 131/79; PULSE 91; RESP 16; TEMP 35.9; O2SAT 97
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
--- NOTE | 2018-11-17 17:00 | NURSING ---
At 1600, this RN walks into the patient room. Patient hysterically crying as this RN walks into room. States Gomez just left and was yelling at her for not having the baby in the room while she slept and for being overly emotional Gomez told the pt he was going out to drink since he wasn't wanted here Pt states that he is off his psych meds to help her with the baby but has been sleeping out in his car all day. When asked if she feels safe at home, she stated Gomez can't get to my house because he can't drive and I would have to pick him up for him to come over.
--- NOTE | 2018-11-17 17:00 | CASEMGMT ---
Social Work Labor and Delivery Unit 1455: Spoke with Libertad King at [facility] ([phone]) regarding the meeting with mother of baby (MOB) this date. Updated that MOB and baby are not going home today as originally planned, as baby has jaundice and has to have intervention for such. Discharge dependent on how baby does under bili lights. Reported MOB?s continued denial of having referrals to supportive services such as [facility] and even mental health treatment. Reported MOB's responses when subjects of getting community supports involved. Reported that MOB appears not have have actually called WIC as indicated to this telegraphic typewriter repairer during initial assessment, as MOB reporting today that has not had a chance to yet call WIC. Reported MOB?s demeanor during today?s visit, much different than yesterday. Reported that although MOB is gentle with baby, the only interaction this telegraphic typewriter repairer has seen between MOB and baby is baby at MOB?s breast. Reported concerns that potential Father of baby (FOB) Gomez Fournier has been off of psychiatric medication in order to stay up to care for baby, and this telegraphic typewriter repairer?s concern as to what this will translate to at home going (based on MOB and potential FOB history when FOB has not been on medications). Reported concern to [facility] that now there are two parents with some level of mental health, not being treated or not being followed to the recommended treatment. Reported the MOB's report to this telegraphic typewriter repairer that FOB will be the person coming home with MOB to help with baby, that MOB states that MOB?s mom and grandmother are available to help. Reviewed that this telegraphic typewriter repairer talked about depression again, as well as broached psychosis. MOB able to share a plan to get a rubber roller grinder and go to Emergency department or call [facility] if psychosis arises. Inquired whether [facility] will be opening a case. [facility] Chad King reports will continue to review information in report to determine whether a case will be opened for investigation. Per Libertad, if other concerns arise the hospital can call to give more information. This telegraphic typewriter repairer impressed concern for this family based on multiple risk factors present. Reviewed nurses note from this morning about MOB?s anxiety about being home alone with baby and not knowing what to do, as well as the question as to what the realistic level of support at home will be. 1650: Printed up a comprehensive list of mental health providers for MOB as well as [facility] program brochure. Spoke with RN Beatriz Rizzo and asked RN to give to MOB information when MOB?s discharge instructions are given. Updated nursing staff to conversation with [facility] this date. Discussed that if any concerns or concerning interactions arise this would be helpful to be noted in the medical record. RN does share with this telegraphic typewriter repairer that earlier today when baby was crying the MOB made a comment to family member who was in the room that it was okay for baby to cry as the baby had not yet cried it out. RN reports this is a concern as newborns are not at point of crying it out. RN also reports that baby was just taken back to MOB's room for a feeding, that MOB had been given a couple of hours to sleep and MOB crying in room, reportedly upset by something happening with potential FOB. Updated RN that will have Tuesday social science research assistant touch base with unit to see how things are going for this family. Plan: Will have Tuesday social science research assistant for [facility] check in with [facility] labor and delivery unit on how things are going over night with this family. Anticipate need to have on-house calls nurse practitioner for [facility] called and updated on this family before home going. At this time MOB and baby to discharge home with plan for potential FOB to stay at the home to help. MOB has been [facility] resource lists, list of mental health providers, and depression packet and resources. Will monitor for meconium drug screen results and if indicated report to [facility] when results are back. -KAREN Reed, FORESTRY SUPPORT SPECIALIST
[2018-11-17 19:59] VITALS: BP 117/78; PULSE 87; RESP 20; TEMP 36.4; O2SAT 96
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
[2018-11-18] MEDS: oxyCODONE 5 MG Tablet PO ×3 (00:02→10:43)
[2018-11-18] MEDS: Senna/Docusate Sodium 1 Tablet PO (00:02)
[2018-11-18] MEDS: Acetaminophen/Butalbital/Caffe 1 Tablet PO ×2 (00:50→05:15)
--- NOTE | 2018-11-18 00:51 | NURSING ---
Pt. standing in bathroom at sink coughing, spit up a nickel sized amount of pale yellow sputum. Pt. breathing harder. RN listened to lung sounds and heard inspiratory and expiratory wheezes in all lung gresham. Pt. does have a history of emphysema. RN offered to call respiratory for pt's breathing treatment bu pt. denies stating I'm too tired, maybe later tonight. RN also reminded and encouraged pt. to use IS breathing device. Pt. denied this as well. Pt. got tearful stating I'm so frustrated they won't just order bronchitis labs. I'm so scared to get it again or pneumonia. Pt. vital signs appropriate and pt. has been afebrile. Will continue to monitor.
[2018-11-18 02:40] VITALS: BP 111/71; PULSE 83; RESP 21; TEMP 36.8; O2SAT 94
--- NOTE | 2018-11-18 08:22 | PCM.PN.OB ---
Patient Problems: Active and Suspected Problems (Last Reviewed 11/10/18 @ 11:32 by Heavenly Harding) Active labor at term (Acute) Arrest of dilation, delivered, current hospitalization (Acute) heart rate deceleration, delivered, current hospitalization (Acute) Subjective: no CP less SOB and coughing, still some sputum coming up but refused breathing treatments. lochia moderate pain controlled - Physical Exam General: Alert, Oriented x3 Vital Signs Temp Pulse Resp BP Pulse Ox 98.2 F 83 21 H 111/71 94 11/18/18 02:40 11/18/18 02:40 11/18/18 02:40 11/18/18 02:40 11/18/18 02:40 Oxygen Delivery Method Room Air Weight: 255 lb 11.779 oz Body Mass Index (BMI) 44.9 Medical Necessity - Tobacco Use Smoking Status: Heavy Smoker (>10/day) Assessment/Plan All Active Problems (Last Reviewed 11/10/18 @ 11:32 by Heavenly Harding) Active labor at term (Acute) Arrest of dilation, delivered, current hospitalization (Acute) heart rate deceleration, delivered, current hospitalization (Acute) Obesity affecting in third trimester (Acute) Marijuana user (Acute) PTSD (post-traumatic stress disorder) (Acute) Supervision of high-risk (Acute) (Acute) Abdominal trauma (Resolved) Decreased movement (Resolved) s/p LTCS PPD # 4 1. routine post care 2. breast feeding- support given 3. rh positive 4. rubella immune dc home
[2018-11-18 08:49] VITALS: BP 143/105; PULSE 87; RESP 20; TEMP 36.8; O2SAT 93
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
[2018-11-18] MEDS: Albuterol 2.5 MG/3 ML VIAL.NEB. INHALATION (10:31)
[2018-11-18] MEDS: Enoxaparin 40 MG/0.4 ML Syringe SC (10:47)
== END 2018-11-18 10:50 | disposition home or self-care (01) | DRG 540 ==
LOC: WPOUT 04:50 → WP 04:50
PROVIDERS: Admitting Provider Obstetrics & Gynecology; Referring Provider Obstetrics & Gynecology; Visit Provider Obstetrics & Gynecology
DX: O69.1XX0 Labor and delivery complicated by cord around neck, with compression, not applicable or unspecified (principal); O62.0 Primary inadequate contractions; O76 Abnormality in fetal heart rate and rhythm complicating labor and delivery; J43.9 Emphysema, unspecified; O99.214 Obesity complicating childbirth; O99.334 Smoking (tobacco) complicating childbirth; F17.210 Nicotine dependence, cigarettes, uncomplicated; Z3A.39 39 weeks gestation of pregnancy; Z37.0 Single live birth
CPT/HCPCS: 59025; 59050; 80053; 80307; 82570; 84156; 84550; 85025; 85027; 85610; 85730; 86850; 86900; 94640; 99218; J7030; J7120; A4216; G0378; J2405

== ENCOUNTER → 2019-01-01 16:47 | Outpatient (CLI) | payer OTHER, MEDICAID, SELFPAY ==
[2019-01-01 13:57] VITALS: BMI 44.9
[2019-01-04 14:05] LABS: HPV Reflexed? NOT INDICATED
== END ==
PROVIDERS: Referring Provider Obstetrics & Gynecology; Visit Provider Obstetrics & Gynecology
DX: Z12.4 Encounter for screening for malignant neoplasm of cervix (principal)
CPT/HCPCS: 87624; 88175; G0145

== ENCOUNTER 2019-04-20 10:44 | Emergency (ER) | payer OTHER, MEDICAID, SELFPAY ==
[2019-01-01 13:57] VITALS: BMI 44.9
[2019-04-20 10:45] VITALS: BP 132/74; PULSE 102; RESP 16; TEMP 36.1; O2SAT 96; BMI 46.3
--- NOTE | 2019-04-20 10:59 | ED.VISSUMM ---
- ER Visit Summary Date of Service: 04/20/19 Chief Complaint: Fall History of Present Illness: The patient is a 24 F who tripped while on [place] today landing on her right knee. She states there was immediate swelling but the swelling has improved. She notes bruising that is now appeared. She notes an abrasion to the palm of her right hand. She has been able to ambulate. Physical Examination: Afebrile vital signs stable There is tenderness palpation of the inferior aspect of the patella. There is some mild soft tissue swelling. Ligaments are stable. There is no joint effusion. There is a small contusion inferior medially to the patella Test Results: Knee films were obtained. These were negative for fracture Emergency Department Course and Treatment: She will be treated conservatively. William wrap as needed and ice. Recommend Tylenol or Motrin for pain. Impression: 1. Right knee contusion This note was generated with [employer] dictation software. It may contain incorrect words, spelling, and punctuation that were not noted in review of the chart prior to signing ED Disposition - Plan for ED Patient: Disposition: Home or Assisted Living Instructions: CONTUSION, Lower Extremity Referrals: Delores Reyes DO [STAFF PHYSICIAN] - 10-14 Days if not better
--- NOTE | 2019-04-20 11:00 | RAD_ITS ---
STUDY: X-RAY - RIGHT KNEE REASON FOR EXAM: Female, 24 years old. Pain following injury. TECHNIQUE: 4 view(s) of the knee. COMPARISON: None. FINDINGS: Normal visualized distal femur. Normal visualized proximal tibia and fibula. Normal proximal tibiofibular articulation. Normal medial femorotibial compartment. Normal lateral femorotibial compartment. Normal patellofemoral articulation. The soft tissue structures are unremarkable. RAD/Knee 4 or More Views IMPRESSION: Normal x-ray examination of the knee. Electronically Signed: Mike Pereira, at 11:19 EDT , Service support ,
== END 2019-04-20 11:55 | disposition home or self-care (01) ==
PROVIDERS: Emergency Provider Emergency Medicine
DX: S80.01XA Contusion of right knee, initial encounter (principal); S60.511A Abrasion of right hand, initial encounter; W01.0XXA Fall on same level from slipping, tripping and stumbling without subsequent striking against object, initial encounter; Y93.9 Activity, unspecified; Y92.9 Unspecified place or not applicable; Y99.9 Unspecified external cause status; E66.9 Obesity, unspecified; Z72.0 Tobacco use
CPT/HCPCS: 73564; 99282

== ENCOUNTER 2019-08-28 01:54 | Emergency (ER) | payer OTHER, SELFPAY ==
[2019-08-28 01:55] VITALS: BP 133/96; PULSE 81; RESP 16; TEMP 36.3; O2SAT 97; BMI 44.9
--- NOTE | 2019-08-28 02:21 | ED.DCSUM_ITS ---
History of Present Illness Chief Complaint: Mental Health Detail of Chief Complaint: anxiety Informant: Patient Onset: Today - JPTA Context: Onset with activity - involved in a police standoff Timing: Continuous Quality: anxious Current Severity: Moderate Maximum Severity: Severe Worsened by: situational factors Relieved by: getting away from situational factors Associated Symptoms: vomiting repeatedly, followed by increase in chronic low back pain Narrative: Patient states she was supposed to work third shift right now, but since she was involved in a police standoff where she was made to hide behind the police cruiser while they were trying to get her insignificant other out of her house. She became very anxious which is happened before, causing her to vomit which is happened before, and she almost fell as a result of doubling over while vomiting, and then started having low back discomfort. She denies any radicular symptoms or loss of bowel or bladder control. She is making it a point to get a work excuse, saying that the police report will not be enough for my job. She is asking for something for anxiety and saying that antihistamines do not sit well with me. She denies any suicidality or suicidal thoughts. 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 - Past Medical History (1) Chronic low back pain Status: Chronic (2) Degenerative disc disease, lumbar Status: Chronic (3) Anxiety Status: Chronic (4) PTSD (post-traumatic stress disorder) Status: Chronic (5) Emphysema lung Status: Chronic Comment: PCP, no inhalers right now Past Medical History - Allergies and Home Meds Allergies/Adverse Reactions: Allergies venom-honey bee [bee venom (honey bee)] Allergy (Verified 08/28/19 01:55) Swelling diphenhydramine [From Benadryl] Adverse Reaction (Verified 08/28/19 01:55) Pain in joints Primary Care Physician: Care Physician,No Primary [Primary Care Provider] - Lives: With Family Smoking Status: Current every day smoker Review of Systems General: Denies: Chills, Fever, Sweats Eyes: Denies: Visual changes - bilaterally, Diplopia ENT: Denies: Rhinorrhea, Sore throat Cardiovascular: Reports: Palpitations. Denies: Chest pain Respiratory: Denies: Dyspnea, Cough, Dyspnea on exertion Gastrointestinal: Reports: Nausea - gone now, Vomiting. Denies: Abdominal pain, Diarrhea, Melena, Hematochezia Genitourinary: Denies: Dysuria, Hematuria, Frequency Musculoskeletal: Reports: Back pain. Denies: Swelling, Extremity Pain Skin: Denies: Rash, Wounds Neurological: Denies: Headache, Weakness, Numbness Psych: Reports: Anxiety. Denies: Suicidal thoughts, Suicidal ideations Physical Exam Vital Signs/Narrative: Vital Signs Temp Pulse Resp BP Pulse Ox 08/28/19 01:55 97.4 F L 81 16 133/96 H 97 Inital Vital Signs reviewed: Yes General: Well nourished, Well developed, Obese, No Acute Distress - well- appearing Head: Normocephalic, Atraumatic Eyes: Perrl, EOMI ENT: Moist mucous membranes, No rhinorrhea Neck: Supple, Nontender Cardiovascular: Regular rate, Regular rhythm, No murmurs. Negative for: Tachycardia Respiratory: No distress, CTA bilaterally, Chest nontender Abdomen: Soft, Nontender, Nondistended, Normal bowel sounds Back: Nontender, Normal Inspection, - - FROM without apparent discomfort. Negative for: CVA tenderness, Spinal tenderness Extremities: Nontender, No edema Skin: Normal color, No rash, No Trauma Neurological: Alert, Oriented x3, Cranial nerves II-XII grossly intact, Normal Strength, Normal Sensation, Normal Gait Psychological: Normal affect, Normal Mood Diagnostic/Tx/Re-eval - Medical Decision Making Patient gives multiple reasons why she has chronic low back pain and describes this as a worsening of it. She was vomiting and had a near fall apparently just prior to the onset of pain, and has a normal neurologic exam. This is consistent with a myofascial strain. She clearly is comfortable and not in a lot of discomfort. She has a ride and was given an Ativan and an injection of Toradol and appropriate discharge instructions as well as a work note. ED Disposition - Plan for ED Patient: Disposition: Home or Assisted Living Diagnosis: Anxiety, Acute lumbar myofascial strain Instructions: Anxiety Reaction Referrals: Counseling,Center [GROUP OF PHYSICIANS] - As Needed
[2019-08-28] MEDS: LORazepam 1 MG Tablet PO (03:00)
[2019-08-28] MEDS: Ketorolac 60 MG/2 ML Vial IM (03:00)
[2019-08-28 03:03] VITALS: BP 125/86; PULSE 83; RESP 16; O2SAT 100
== END 2019-08-28 03:25 | disposition home or self-care (01) ==
PROVIDERS: Emergency Provider Emergency Medicine
DX: F41.9 Anxiety disorder, unspecified (principal); S39.012A Strain of muscle, fascia and tendon of lower back, initial encounter; X58.XXXA Exposure to other specified factors, initial encounter; Y93.9 Activity, unspecified; Y92.9 Unspecified place or not applicable; Y99.9 Unspecified external cause status; M51.36 Other intervertebral disc degeneration, lumbar region; G89.29 Other chronic pain; R11.10 Vomiting, unspecified; F43.12 Post-traumatic stress disorder, chronic; J43.9 Emphysema, unspecified; F17.200 Nicotine dependence, unspecified, uncomplicated; Z88.8 Allergy status to other drugs, medicaments and biological substances; Z91.5 Personal history of self-harm
CPT/HCPCS: 96372; 99282

== ENCOUNTER 2019-09-24 11:57 | Emergency (ER) | payer OTHER, SELFPAY ==
[2019-09-24 11:59] VITALS: BP 150/84; PULSE 85; RESP 17; TEMP 36.1; O2SAT 99; BMI 45.0
--- NOTE | 2019-09-24 12:13 | ED.VIS.BACK ---
History of Present Illness Chief Complaint: Back Informant: Patient Onset: Weeks Context: Gradual Onset Chronic pain exacerbated by: Activity, bending, twisting Injury: - - No specific injury Timing: Continuous Quality: Aching Location: Lumbar, Buttock Current Severity: Mild Maximum Severity: Moderate Worsened by: improves with: Lifting. worse with: Movement, Bending Relieved by: Nothing Associated Symptoms: Radiation to Right Leg - Patient points to the right greater trochanteric region. She states she has sciatica. Furthermore, she states this is her sciatic pain., - - She denies bowel bladder dysfunction. She denies saddle paresthesia or anesthesia. She reports buckling of her knees going up or down steps. She denies foot drop. Narrative: Patient is a 24-year-old woman with history of degenerative disc disease, arthropathy of the lumbar vertebrae and reported sciatica who presents with exacerbation of her back pain. She apparently did not go to work yesterday. She denies fever, chills night sweats. She is not immune suppressed. There is no history of IV drug use. Denies unintentional weight loss. She took Tylenol with no effect. Prior similar symptoms: Yes Recent Illness/Hospitalization: No - Past Medical History (1) Chronic low back pain Status: Chronic (2) Degenerative disc disease, lumbar Status: Chronic (3) PTSD (post-traumatic stress disorder) Status: Chronic Past Medical History - Allergies and Home Meds Allergies/Adverse Reactions: Allergies venom-honey bee [bee venom (honey bee)] Allergy (Verified 09/24/19 11:58) Swelling diphenhydramine [From Benadryl] Adverse Reaction (Verified 09/24/19 11:58) Pain in joints Primary Care Physician: Care Physician,No Primary [Primary Care Provider] - Prior records reviewed: Yes Surgical History: - - Lives: Spouse/ Significant Other, With Family Smoking Status: Current every day smoker Alcohol: None Drugs: None Review of Systems General: Denies: Chills, Fever, Malaise, Subjective, Sweats, Weight loss, - Gastrointestinal: Denies: Abdominal pain, Nausea, Vomiting, Diarrhea, Constipation Musculoskeletal: Reports: Back pain. Denies: Myalgias, Arthralgias, Neck pain, Swelling, Extremity Pain, -, - Skin: Denies: Rash, Wounds Neurological: Denies: Weakness, Parasthesia, Numbness Endocrine: Denies: Polyuria, Polydipsia Hematologic: Denies: Easy bruising, Easy bleeding Allergy: Denies: Uticaria, Swelling of the mouth Physical Exam Vital Signs/Narrative: Vital Signs Temp Pulse Resp BP Pulse Ox 09/24/19 11:59 97.0 F L 85 17 150/84 H 99 Inital Vital Signs reviewed: Yes General: Well nourished, Well developed, Obese Head: Normocephalic, Atraumatic Eyes: Perrl, EOMI. Negative for: Pale conjunctiva, Scleral icterus ENT: Moist mucous membranes, No rhinorrhea Neck: Supple, Nontender Cardiovascular: Regular rate, Regular rhythm, No murmurs, Normal S1, Normal S2 Respiratory: No distress, CTA bilaterally, Chest nontender Abdomen: Soft, Nontender, Nondistended, Normal bowel sounds Back: Normal Inspection, Paraspinal Tenderness, Negative SLR - Right, Negative SLR - Left, - - Normal perianal sensation.. Negative for: Nontender, Surgical Scar, Well-Healed, Spinal tenderness, CVA tenderness Extremeties: Nontender, No edema Skin: Normal color, No rash, No Trauma. Negative for: Cyanosis, Diaphoresis, Jaundice Neuro: Alert, Oriented, Normal Strength, Normal Sensation, Normal DTR, Normal Gait - Is able to walk on heels and toes. There is no foot drop. She is able to perform a 1 legged squat on the right and left side without difficulty., Normal Reflexes - DTR 2+ at the patella and ankle and symmetric, Normal Cerebellar, - - Patient was able to rise from supine position with no hesitation or evidence of discomfort. Diagnostic/Tx/Re-eval - Medical Decision Making Patient has exacerbation of chronic low back pain secondary to degenerative disc disease. Since there is no contraindication to NSAIDs she was prescribed NSAIDs. She was given a note for work that she was seen today. ED Disposition - Plan for ED Patient: Disposition: Home or Assisted Living Diagnosis: Pain in lower back Instructions: BACK AND NECK PAIN, General Prescriptions: Naproxen [Naprosyn] 500 mg PO BID #14 tab [id number] Referrals: Care Physician,No Primary [Primary Care Provider] - 1 Week if not improving
[2019-09-24 12:26] VITALS: RESP 18
== END 2019-09-24 12:35 | disposition home or self-care (01) ==
PROVIDERS: Emergency Provider Emergency Medicine
DX: M54.41 Lumbago with sciatica, right side (principal); G89.29 Other chronic pain; M51.36 Other intervertebral disc degeneration, lumbar region; F43.10 Post-traumatic stress disorder, unspecified; E66.9 Obesity, unspecified; Z88.8 Allergy status to other drugs, medicaments and biological substances; F17.200 Nicotine dependence, unspecified, uncomplicated
CPT/HCPCS: 99281; 99282

== ENCOUNTER → 2019-10-06 14:15 | Outpatient (CLI) | payer OTHER, SELFPAY ==
[2019-09-24 11:59] VITALS: BMI 45.0
--- NOTE | 2019-10-06 14:50 | EKG12_ITS ---
Test Reason : BASELINE EKG4 MEDS Blood Pressure : / mmHG Vent. Rate : 088 BPM Atrial Rate : 088 BPM P-R Int : 172 ms QRS Dur : 072 ms QT Int : 382 ms P-R-T Axes : 070 044 044 degrees QTc Int : 462 ms Normal sinus rhythm Normal ECG Confirmed by JEFERSON PEREZ, ROOSEVELT ([id number]), copy editor CODEY LAYTON ([id number]) on 10/10/2019 9:18:24 AM Referred By: JOANNA Confirmed By:ROOSEVELT GOVEA MD
[2019-10-06 15:25] LABS: Hemoglobin A1c 5.1 % (4.2-6.3)
[2019-10-06 15:31] LABS: ALB/GLOB Ratio 0.9 RATIO (0.9-2.4); AST(SGOT) 34 U/L (15-37); Alanine Aminotransfer ALT/SGPT 81 U/L (13-56); Albumin, Serum 3.5 g/dL (3.2-5.0); Alkaline Phosphatase 91 U/L (45-117); Anion Gap 4 (5-15); BUN 16 mg/dL (7-18); Bilirubin, Direct 0.07 mg/dL (0.00-0.30); Calcium,Total 8.6 mg/dL (8.5-10.1); Chloride 109 mmol/L (98-107); Cholesterol 197 mg/dL (200); Creatinine, Serum 0.84 mg/dL (0.55-1.02); EST Glomerular Filtration Rate 88 mL/min (>60); Est Glom Filt Rate - Afr Amer 106 mL/min (>60); Globulin 3.7 g/dL (2.2-4.2); Glucose 92 mg/dL (74-106); High Density Lipoprotein 49 mg/dL; Potassium 3.8 mmol/L (3.5-5.1); Protein, Total 7.2 g/dL (6.4-8.2); Sodium Level 137 mmol/L (136-145); Thyroid Stim Hormone (TSH) 3.85 uIU/mL (0.358-3.74); Triglycerides 270 mg/dL; Very Low Density Lipoprotein 54 mg/dL (5-40)
== END ==
LOC: LAB 14:17
DX: Z79.899 Other long term (current) drug therapy (principal)
CPT/HCPCS: 36415; 80053; 80061; 82248; 83036; 84443; 93005

== ENCOUNTER 2019-12-07 18:51 | Emergency (ER) | payer OTHER, SELFPAY ==
[2019-12-07 18:51] VITALS: BP 142/81; PULSE 103; RESP 18; TEMP 36.1; O2SAT 97; BMI 46.5
--- NOTE | 2019-12-07 19:29 | ED.DCSUM_ITS ---
- ER Visit Summary Date of Service: 12/07/19 Chief Complaint: [Right nipple tear] History of Present Illness: The patient is a 24 F [presents the emergency department after lacerating her right nipple. Patient states that she was getting out of the shower when her nipple bar and ball caught on the shower door causing a tear of her nipple. The entire bar and ball tore through the nipple. There is no chance of foreign body per patient. Patient was not sure if needed repaired. Patient read online that she would potentially need to have a repair done. She is up-to-date on tetanus. She has no medical history otherwise other than emphysema.] Physical Examination: [HEENT-PERRLA, EOMI. Cranial nerves II through XII grossly intact. TMs clear. Mucous membranes moist. No adenopathy. Cardiovascular-regular rate and rhythm without murmur or ectopy Lungs-clear to auscultation, chest wall stable without crepitus or subcu emphysema. Right breast-evaluation of the right nipple reveals a well approximated nipple with a horizontal zigzag-like laceration that I am unable to gape open. No foreign bodies noted. No active bleeding. Abdomen-normoactive bowel sounds, soft, nontender, no rebound or rigidity, no peritoneal signs. Extremities-intact ?4, normal range of motion, normal pulses, atraumatic] Test Results: [None indicated] Emergency Department Course and Treatment: [I discussed with patient treatment options including conservative care and no further repair which I felt was reasonable. Also discussed potentially putting a couple of sutures in to keep the wound edges approximated although currently they are not gaping and I am not sure this would gain much in in terms of results. Patient is comfortable with the conservative approach and close monitoring. Advised return if increasing pain, redness, swelling, purulent drainage, or conditions worsen anyway.] Treatment Plan: [No up with primary care physician in 3 to 5 days, For wound check] Disposition: [Discharged home stable condition.] Impression: [Laceration right nipple-no repair necessary] This note was generated with [employer] software. It may contain incorrect words, spelling, and punctuation that were not noted in review of the chart prior to signing ED Disposition - Plan for ED Patient: Referrals: Care Physician,No Primary [Primary Care Provider] -
--- NOTE | 2019-12-07 19:32 | ED.DEP ---
ED Disposition - Plan for ED Patient: Instructions: ED Laceration Small or Superficial Not Stitched Referrals: Care Physician,No Primary [Primary Care Provider] - Jennifer Harmon MD [STAFF PHYSICIAN] - 3-5 Days
[2019-12-07 19:45] VITALS: RESP 16; O2SAT 98
== END 2019-12-07 19:46 | disposition home or self-care (01) ==
LOC: ED 19:32
PROVIDERS: Emergency Provider Emergency Medicine
DX: S21.011A Laceration without foreign body of right breast, initial encounter (principal); X58.XXXA Exposure to other specified factors, initial encounter; Y93.E1 Activity, personal bathing and showering; Y99.9 Unspecified external cause status; Z72.0 Tobacco use
CPT/HCPCS: 99282

== ENCOUNTER 2020-02-05 15:16 | Emergency (ER) | payer SELFPAY ==
[2020-02-05 15:17] VITALS: BP 141/73; PULSE 89; RESP 16; TEMP 36.3; O2SAT 95; BMI 45.3
[2020-02-05 15:32] VITALS: BP 141/73; PULSE 89; RESP 16; TEMP 36.3; O2SAT 95
--- NOTE | 2020-02-05 15:41 | RAD_ITS ---
STUDY: X-RAY - LEFT HAND, ATTENTION INDEX FINGER REASON FOR EXAM: Female, 24 years old. LEFT INDEX FINGER DOG BITE TECHNIQUE: 3 view(s) of the finger were obtained. COMPARISON: None. FINDINGS: Normal metacarpal head. Normal metacarpophalangeal joint. Normal proximal phalanx. Normal middle phalanx. Normal distal phalanx. Normal proximal interphalangeal joint. Normal distal interphalangeal joint. There is no demonstrated fracture. Mild soft tissue swelling is present around the second digit. RAD/Finger(s) Min 2 Views IMPRESSION: Mild soft tissue swelling around the second digit. Electronically Signed: Iraj Andrea MD at 17:04 EDT , Service support ,
--- NOTE | 2020-02-05 15:48 | RAD_ITS ---
STUDY: X-RAY - RIGHT HAND, ATTENTION INDEX FINGER REASON FOR EXAM: Female, 24 years old. RIGHT INDEX FINGER DOG BITE TECHNIQUE: 3 view(s) of the finger were obtained. COMPARISON: None. FINDINGS: Normal metacarpal head. Normal metacarpophalangeal joint. Normal proximal phalanx. Normal middle phalanx. Normal distal phalanx. Normal proximal interphalangeal joint. Normal distal interphalangeal joint. There is no demonstrated fracture. Mild soft tissue swelling is present around the second finger. There is slight irregularity in the skin overlying the dorsum of the PIP joint of the second digit possibly due to a laceration. RAD/Finger(s) Min 2 Views IMPRESSION: 1. Mild soft tissue swelling of the right second digit. 2. There is slight irregularity in the skin overlying the dorsum of the PIP joint of the second digit possibly due to a laceration. Electronically Signed: Iraj Andrea MD at 17:05 EDT , Service support ,
[2020-02-05] MEDS: Diphth,Pertuss(Acell),Tet Vac 0.5 ML Vial IM (15:55)
[2020-02-05] MEDS: Amox/Clavulanate 875 MG Tablet PO (15:55)
[2020-02-05] MEDS: Acetaminophen 500 MG Tablet 1000 MG PO (15:55)
--- NOTE | 2020-02-05 16:03 | ED.VISSUMM ---
- ER Visit Summary Date of Service: 02/05/20 Chief Complaint: Dog bite History of Present Illness: The patient is a 24 F with no primary care physician. She reports they just returned from the vet with her dog and his immunizations are up-to-date. However, he was in pain and he bit her right index finger. She is trying to get his teeth off and he bit her left index finger as well. She reports she has a aching pain instead of 10 with movement and 7 out of 10 at rest. Denies any paresthesias distally. She is right-hand dominant. Her tetanus is not up-to-date. Physical Examination: Vitals: Stable. Afebrile. General: Well-nourished and well-developed. Head: Normocephalic atraumatic. Neck: Supple, no lymphadenopathy. No JVD. Nontender. Cardiovascular: Regular rate and rhythm. No murmurs. Respiratory: No respiratory distress. Clear to auscultation bilaterally. Abdominal: Soft, nontender, nondistended, normal bowel sounds. No guarding, rebound, or peritoneal signs. Back: Nontender. Extremities: Multiple puncture wounds to her distal phalanx of both her right and left index finger. No subungual hematoma, no edema. Skin: Normal color, no rash. Neurologic: Alert and oriented ?3. Cranial nerves II through XII are intact. Normal strength and sensation. Psych: Normal affect. Test Results: Clinical Impression(s) from Imaging Studies Finger X-Ray 02/05/20 15:41 IMPRESSION: Mild soft tissue swelling around the second digit. Electronically Signed: Iraj Andrea MD at 17:04 EDT , Service support , Finger X-Ray 02/05/20 15:48 IMPRESSION: 1. Mild soft tissue swelling of the right second digit. 2. There is slight irregularity in the skin overlying the dorsum of the PIP joint of the second digit possibly due to a laceration. Electronically Signed: Iraj Andrea MD at 17:05 EDT , Service support , Emergency Department Course and Treatment: Patient had her tetanus updated. She was given Tylenol and Augmentin p.o. Her wounds were cleansed and dressing was placed. Treatment Plan: Patient will be discharged on Augmentin. Instructed to follow-up Dr. Knight in 3 to 5 days if not improving. Return to emerge department for any worsening signs of infection. Disposition: To home in improved and stable condition. Impression: 1. Dog bites to index fingers bilaterally. This note was generated with [employer] dictation software. It may contain incorrect words, spelling, and punctuation that were not noted in review of the chart prior to signing ED Disposition - Plan for ED Patient: Disposition: Home or Assisted Living Instructions: ED BITE Dog Prescriptions: Amox/Clavulanate Tablet [Augmentin Tablet] 875 mg PO Q12H #14 tab Prescription Printed Referrals: Julius Knight MD [STAFF PHYSICIAN] - 3-5 Days if not improving
== END 2020-02-05 16:21 | disposition home or self-care (01) ==
LOC: ED 15:50
PROVIDERS: Emergency Provider Emergency Medicine
DX: S61.230A Puncture wound without foreign body of right index finger without damage to nail, initial encounter (principal); S61.231A Puncture wound without foreign body of left index finger without damage to nail, initial encounter; W54.0XXA Bitten by dog, initial encounter; Y93.9 Activity, unspecified; Y92.9 Unspecified place or not applicable; Y99.9 Unspecified external cause status; Z23 Encounter for immunization; J44.9 Chronic obstructive pulmonary disease, unspecified; Z72.0 Tobacco use
CPT/HCPCS: 73140; 90471; 90715; 99283

== ENCOUNTER 2020-03-17 13:26 | Emergency (ER) | payer OTHER, SELFPAY ==
[2020-03-17 13:27] VITALS: BP 134/76; PULSE 97; RESP 16; TEMP 36.7; O2SAT 97; BMI 44.6
--- NOTE | 2020-03-17 13:52 | ED.VIS.GEN ---
History of Present Illness Chief Complaint: Shortness of Breath Informant: Patient Narrative: 24-year-old female presents with shortness of breath. She states she has a gnosis of emphysema and she continues to smoke as well as vape. She states she is failed all therapy to try to quit smoking. She does not have concern for COVID?19. She does not have body aches, fever. She requests an albuterol inhaler and steroids as this usually helps her. Prior similar symptoms: Yes Past Medical History - Allergies and Home Meds Allergies/Adverse Reactions: Allergies venom-honey bee [bee venom (honey bee)] Allergy (Verified 03/17/20 13:26) Swelling diphenhydramine [From Benadryl] Adverse Reaction (Verified 03/17/20 13:26) Pain in joints Primary Care Physician: Care Physician,No Primary [Primary Care Provider] - Prior records reviewed: Yes Surgical History: noncontributory, - - Smoking Status: Current every day smoker Review of Systems General: Denies: Chills, Fever, Sweats Eyes: Denies: Visual changes - bilaterally, Diplopia ENT: Denies: Rhinorrhea, Sore throat Cardiovascular: Denies: Chest pain, Palpitations Respiratory: Reports: Dyspnea, Cough. Denies: Dyspnea on exertion Gastrointestinal: Denies: Abdominal pain, Nausea, Vomiting, Diarrhea, Melena, Hematochezia Genitourinary: Denies: Dysuria, Hematuria, Frequency Musculoskeletal: Denies: Back pain, Swelling, Extremity Pain Skin: Denies: Rash, Wounds Neurological: Denies: Headache, Weakness, Numbness Endocrine: Denies: Polyuria, Polydipsia Physical Exam Vital Signs/Narrative: Vital Signs Temp Pulse Resp BP Pulse Ox 03/17/20 13:27 98.0 F 97 16 134/76 H 97 General: Well nourished, Well developed, No Acute Distress Head: Normocephalic, Atraumatic Eyes: Perrl, EOMI ENT: Moist mucous membranes, No rhinorrhea Neck: Supple, Nontender Cardiovascular: Regular rate, Regular rhythm, No murmurs Respiratory: No distress, CTA bilaterally, Chest nontender Abdomen: Soft, Nontender, Nondistended, Normal bowel sounds Back: Nontender, Normal Inspection Extremities: Tenderness - \ Skin: Normal color, No rash Neurological: Alert, Oriented x3 Psychological: Normal affect, Normal Mood Diagnostic/Tx/Re-eval - Medical Decision Making She presents for evaluation because she feels more short of breath than usual. On exam she is not wheezing and she is moving good air. She does not wish to be tested for COVID as she has no concern for this. She wishes to be treated with a prednisone burst and albuterol inhaler as she has been out of this medication because she is in between primary care physicians. This was prescribed for her. She was given return precautions. Patient stable for discharge. Impression: 1. History of emphysema ED Disposition - Plan for ED Patient: Disposition: Home or Assisted Living Instructions: ED REACTIVE AIRWAY DISEASE Adult, ED COPD Flare Prescriptions: Prednisone [Deltasone] 60 mg PO DAILY #5 tab Prescription Printed Albuterol Inhaler [Ventolin Hfa] 1 - 2 puff INHALATION Q4H PRN PRN #1 inhaler PRN Reason: Wheezing Prescription Printed Referrals: Care Physician,No Primary [Primary Care Provider] -
[2020-03-17 14:22] VITALS: RESP 19
== END 2020-03-17 14:24 | disposition home or self-care (01) ==
LOC: ED 14:11
PROVIDERS: Emergency Provider Student in an Organized Health Care Education/Training Program
DX: J43.9 Emphysema, unspecified (principal); F17.290 Nicotine dependence, other tobacco product, uncomplicated; Z79.3 Long term (current) use of hormonal contraceptives
CPT/HCPCS: 99282

== ENCOUNTER 2020-07-12 02:19 | Emergency (ER) | payer OTHER, SELFPAY ==
[2020-07-12 02:19] VITALS: BP 117/78; PULSE 82; RESP 17; TEMP 36.2; O2SAT 100; BMI 46.2
[2020-07-12] MEDS: traMADol 50 MG Tablet PO (02:43)
--- NOTE | 2020-07-12 02:48 | ED.DCSUM_ITS ---
History of Present Illness Chief Complaint: Fall Informant: Patient Narrative: 25-year-old female presenting with right ring finger injury. She states she stove did when she fell. She tripped on her walking boot that on her left foot. She did not hit her head or lose consciousness. Tetanus immunization is up-to-date. She sustained a small superficial abrasion proximal to the nailbed. Hemostasis is already achieved. Patient feels she may have broken her finger and she has pain with motion. Past Medical History - Allergies and Home Meds Allergies/Adverse Reactions: Allergies venom-honey bee [bee venom (honey bee)] Allergy (Verified 07/12/20 02:25) Swelling diphenhydramine [From Benadryl] Adverse Reaction (Verified 07/12/20 02:25) Pain in joints Primary Care Physician: Care Physician,No Primary [Primary Care Provider] - Surgical History: noncontributory, - - Smoking Status: Former smoker Review of Systems General: Denies: Chills, Fever, Sweats Eyes: Denies: Visual changes - bilaterally, Diplopia ENT: Denies: Rhinorrhea, Sore throat Cardiovascular: Denies: Chest pain, Palpitations Respiratory: Denies: Dyspnea, Cough, Dyspnea on exertion Gastrointestinal: Denies: Abdominal pain, Nausea, Vomiting, Diarrhea, Melena, Hematochezia Genitourinary: Denies: Dysuria, Hematuria, Frequency Musculoskeletal: Reports: Extremity Pain - Pain to the distal fourth digit on the right hand. Small abrasion overlying this. Skin: Reports: Abrasions - Abrasion of the fifth digit distally Neurological: Denies: Headache, Weakness, Parasthesia, Numbness Physical Exam Vital Signs/Narrative: Vital Signs Temp Pulse Resp BP Pulse Ox 07/12/20 02:19 97.1 F L 82 17 117/78 100 General: Well nourished, No Acute Distress Head: Normocephalic, Atraumatic Eyes: Perrl, EOMI Cardiovascular: Regular rate, Regular rhythm Respiratory: No distress, CTA bilaterally Extremities: - - And is to palpation to the distal fourth digit on the right hand. There is no obvious deformity. There is a superficial abrasion proximal to the nailbed. There is no damage to the fingernail itself. No obvious deformity. Skin: Normal color. Negative for: Cyanosis, Diaphoresis Neurological: Alert, Oriented x3 Psychological: Normal affect, Normal Mood Diagnostic/Tx/Re-eval Clinical Impression(s) from Imaging Studies Hand X-Ray 07/12/20 02:55 IMPRESSION: No visualized fracture of the third or fourth digits. Question flexion injury slight subluxation of the fifth digit at the proximal interphalangeal joint. Electronically Signed: Natalya Britt MD at 3:12 EST Tel , Service support , - Medical Decision Making Patient presents after injuring her right fourth digit on her right hand. She is a superficial abrasion proximal to the nailbed. Her tetanus immunization is up-to-date. She was given Ultram for pain. X-ray of the right hand shows conc gisella for fifth digit injury however she does not have injury to this part of her hand. Patient will be put in a dressing and an AlumaFoam splint for comfort. She is to alternate Tylenol and ibuprofen at home. She is to monitor for signs of infection given that she has a small open wound. Patient is stable for discharge at this time. Impression: 1. Right hand fourth digit contusion 2. Right hand fourth digit abrasion ED Disposition - Plan for ED Patient: Disposition: Home or Assisted Living Instructions: ED CONTUSION Finger, ED Abrasion Referrals: Care Physician,No Primary [Primary Care Provider] - Saúl Hutchins MD [STAFF PHYSICIAN] -
--- NOTE | 2020-07-12 02:55 | RAD_ITS ---
STUDY: X-RAY - RIGHT HAND REASON FOR EXAM: Female, 25 years old. RIGHT HAND INJURY FROM FALL TODAY. PT STATES PAIN IS IN THE 3RD AND 4TH DIGIT. TECHNIQUE: 3 view(s) of the hand. COMPARISON: None. FINDINGS: Normal radiocarpal articulation. Normal distal radioulnar joint. Normal visualized carpal bones. Normal carpal articulations Normal carpometacarpal articulation of the thumb. Normal second through fifth carpometacarpal joints. Normal metacarpi. Normal metacarpophalangeal joint of the thumb. Normal interphalangeal joint of the thumb. Normal proximal and distal phalanges of the thumb. Normal metacarpophalangeal joints of the second through fifth fingers. The fifth digit is flexed at the proximal interphalangeal joint and on the lateral view appears to be slightly subluxed. Normal phalanges of the second through fifth fingers. The soft tissue structures are unremarkable. RAD/Hand Min 3 Views IMPRESSION: No visualized fracture of the third or fourth digits. Question flexion injury slight subluxation of the fifth digit at the proximal interphalangeal joint. Electronically Signed: Natalya Britt MD at 3:12 EST Tel , Service support ,
== END 2020-07-12 03:41 | disposition home or self-care (01) ==
PROVIDERS: Emergency Provider Student in an Organized Health Care Education/Training Program
DX: S60.221A Contusion of right hand, initial encounter (principal); W01.10XA Fall on same level from slipping, tripping and stumbling with subsequent striking against unspecified object, initial encounter; Y93.9 Activity, unspecified; Y92.9 Unspecified place or not applicable; Y99.9 Unspecified external cause status; Z87.891 Personal history of nicotine dependence
CPT/HCPCS: 73130; 99283; J7030

== ENCOUNTER 2020-11-26 05:01 | Emergency (ER) | payer OTHER, SELFPAY ==
[2020-11-26 05:02] VITALS: BP 141/74; PULSE 86; RESP 16; TEMP 36.3; O2SAT 99; BMI 44.9
--- NOTE | 2020-11-26 05:28 | ED.VIS.GEN ---
History of Present Illness Chief Complaint: Ear Problem Narrative: Patient is a 25-year-old female who was using a Q-tip/cotton swab because her left ear was itching. The cotton came off and was stuck in her ear. This occurred just before presentation. No pain. No other complaints or recent illness no medical history. Past Medical History - Allergies and Home Meds Allergies/Adverse Reactions: Allergies venom-honey bee [bee venom (honey bee)] Allergy (Verified 11/26/20 05:05) Swelling diphenhydramine [From Benadryl] Adverse Reaction (Verified 11/26/20 05:05) Pain in joints Primary Care Physician: Care Physician,No Primary [Primary Care Provider] - Past Medical History: None Surgical History: noncontributory, - - Smoking Status: Former smoker Review of Systems All systems negative except as indicated General: Denies: Fever Eyes: Denies: Visual changes - bilaterally ENT: Denies: Bilateral ear pain Cardiovascular: Denies: Chest pain Respiratory: Denies: Dyspnea Skin: Denies: Rash Neurological: Denies: Headache Physical Exam Vital Signs/Narrative: Vital Signs Temp Pulse Resp BP Pulse Ox 11/26/20 05:02 97.3 F L 86 16 141/74 H 99 Inital Vital Signs reviewed: Yes General: Well nourished Head: Normocephalic Eyes: EOMI ENT: Moist mucous membranes, - - There is a piece of a cotton swab lodged in the left external auditory canal. Cardiovascular: Regular rate Respiratory: No distress Skin: Normal color Neurological: Alert Psychological: Normal affect Diagnostic/Tx/Re-eval - Medical Decision Making Portion of the cotton swab was easily grasped with forceps and easily removed. Examination afterwards shows a clear canal. Patient discharged. ED Disposition - Plan for ED Patient: Disposition: Home or Assisted Living Diagnosis: Foreign body in left ear Instructions: ED Foreign Body, Ear Canal (Removed) Referrals: Care Physician,No Primary [Primary Care Provider] -
[2020-11-26 05:42] VITALS: PULSE 70; RESP 16
== END 2020-11-26 05:43 | disposition home or self-care (01) ==
PROVIDERS: Emergency Provider Emergency Medicine
DX: T16.2XXA Foreign body in left ear, initial encounter (principal); X58.XXXA Exposure to other specified factors, initial encounter; Y93.9 Activity, unspecified; Y92.9 Unspecified place or not applicable; Y99.9 Unspecified external cause status; Z87.891 Personal history of nicotine dependence
CPT/HCPCS: 99282

== ENCOUNTER 2021-01-12 04:29 | Emergency (ER) | payer OTHER, SELFPAY ==
[2021-01-12 04:29] VITALS: BP 151/72; PULSE 109; RESP 18; TEMP 36.7; O2SAT 100; BMI 45.0
--- NOTE | 2021-01-12 04:42 | EX.ED.UPPERE ---
HPI History of Present Illness Chief Complaint: Laceration Narrative Narrative: 25-year-old female presenting with laceration to the right index finger. This occurred about 45 minutes ago. She states he could not initially get the blood to stop but now bleeding is controlled. Last tetanus immunization was 2 years ago. Patient [id number]. Patient feels otherwise healthy. [facility] Medical History Emphysema lung PTSD (post-traumatic stress disorder) Home Medications norgestimate-ethinyl estradiol 1 ea PO DAILY 02/05/20 [History Last Taken Unknown] Allergy/AdvReac Type Severity Reaction Status Date / Time venom-honey bee Allergy Swelling Verified 01/12/21 04:34 [bee venom (honey bee)] diphenhydramine AdvReac Pain in Verified 01/12/21 04:34 [From Benadryl] joints Family History Grandfather Diabetes Heart disease Kidney disease Skin cancer Myocardial infarction CVA (cerebral vascular accident) Grandmother Diabetes Mother Skin cancer Father Lung cancer COPD (chronic obstructive pulmonary disease) Mesothelioma Surgical History H/O colonoscopy Hx of tonsillectomy laser removal of condyloma S/P tonsillectomy and adenoidectomy Social History Smoking Status: Former smoker alcohol intake: never substance use type: does not use caffeine: Yes what type of physical activity do you participate in: none seatbelt use: never do you feel safe at home: Yes additional social history: Radha RIVERA ED Constitutional Constitutional ED: Denies chills, fever(s) or sweats Eyes Eyes: Denies blurry vision or change in vision ENT ENT ED: Denies ear pain, rhinorrhea or sore throat Cardiovascular Cardiovascular: Denies chest pain, palpitations or racing heartbeat Respiratory/Chest Respiratory/Chest: Denies cough, dyspnea or sputum Gastrointestinal Gastrointestinal: Denies abdominal pain, constipation, diarrhea or vomiting Genitourinary Genitourinary ED: Denies dysuria, hematuria or urinary frequency Musculoskeletal Musculoskeletal: Denies arthralgias, myalgias or neck pain Integumentary Reports other Details: Laceration to right index finger ; Denies abscess, Abrasions or rash Neurologic Neurologic: Denies headache(s), paresthesias or weakness Psychiatric Psychiatric: Denies anxiety, depression, suicidal ideation or suicidal thoughts Endocrine Endocrinology: Denies polydipsia or polyuria EXAM Physical Exam Const Vital Signs: 01/12/21 04:29 Temperature 98.0 F Temperature Source Temporal Pulse Rate 109 H Respiratory Rate 18 Blood Pressure 151/72 H Blood Pressure Mean 98 Pulse Ox 100 Oxygen Delivery Method Room Air Positive well nourished General Appearance ED: NAD; Negative for pallor HEENT Reports normocephalic, head/scalp atraumatic and moist mucous membranes Eyes PERRL and EOMs intact bilaterally Neck no lymphadenopathy Resp Auscultation: Negative for rales, rhonchi or wheezes GI normal to inspection, nondistended, normoactive bowel sounds Narrative: Deferred Extremity normal to inspection Extremity Narrative: Laceration to right index finger on the volar aspect approximately 2 cm. Margins are well approximated. No bony tenderness. Right hand neurovascular intact with brisk cap refill to all 5 fingers. General Extremety ED: Yes tenderness Neuro oriented x3 Sensorium / Orientation: alert Motor Exam: strength 5/5 throughout Psych mental status grossly normal Attitude: No agitated Skin no rashes or lesions noted and no wounds General Skin Exam: Negative for jaundice or pallor MDM MDM MDM Narrative Medical decision making narrative: Patient presents with laceration to the right index finger 2 cm long. Wound margins are aligned. There is no active bleeding. Patient's wound was cleaned with chlorhexidine and then irrigated with sterile saline. Wound was anesthetized with 2 cc of 2% lidocaine. Good anesthesia achieved. Patient had three 5-0 sutures placed in the index finger with good approximation of the wound margins. Wound was dressed by nursing staff. Patient's tetanus immunization is up-to-date. She is given limitations at work. Patient will follow up with the [facility] Impression: 1. 2.0 right index finger laceration Discharge Plan Triage Chief Complaint: Laceration ED Provider: Gilbert Orozco Dx/Rx/DC Orders Instructions: ED Laceration, Hand: All Closures Prescriptions: No Action norgestimate-ethinyl estradiol 1 EACH tablet 1 ea PO DAILY RF: 0 Primary Care Provider: Care Physician,Lilly Primary Referrals: [facility] [Provider Group] - 10-14 Days suture removal Care Physician,No Primary [Primary Care Provider] - Disposition Disposition: Home, self care
[2021-01-12] MEDS: Lidocaine 2% (20 ml mdv) 20 ML Vial 5 ML INFILT (05:23)
[2021-01-12 05:24] VITALS: BP 141/60; PULSE 90; RESP 18
== END 2021-01-12 05:24 | disposition home or self-care (01) ==
LOC: ED 05:16
PROVIDERS: Emergency Provider Student in an Organized Health Care Education/Training Program
DX: S61.210A Laceration without foreign body of right index finger without damage to nail, initial encounter (principal); W45.8XXA Other foreign body or object entering through skin, initial encounter; Y93.9 Activity, unspecified; Y92.9 Unspecified place or not applicable; Y99.9 Unspecified external cause status; J43.9 Emphysema, unspecified; Z79.3 Long term (current) use of hormonal contraceptives; Z87.891 Personal history of nicotine dependence
CPT/HCPCS: 12001; 99284

== ENCOUNTER → 2021-06-23 | Outpatient (CLI) | payer MEDICAID, SELFPAY ==
[2021-06-26 05:07] LABS: Chlamydia By Nucleic Acid AMP Negative (Negative)
[2021-06-26 08:16] LABS: Gonococcus By Nucleic Acid AMP Negative (Negative)
== END | disposition home or self-care (01) ==
PROVIDERS: Visit Provider Nurse Practitioner Women's Health
DX: Z11.3 Encounter for screening for infections with a predominantly sexual mode of transmission (principal)
CPT/HCPCS: 87491; 87591

== ENCOUNTER → 2021-08-05 15:33 | Outpatient (CLI) | payer MEDICAID, SELFPAY ==
[2021-08-06 08:44] LABS: HIV - WCH Non-Reactive (Nonreactive); Hepatitis C Antibody Non-Reactive (Nonreactive); Syphilis Antibodies Non-reactive
[2021-08-07 10:16] LABS: HSV 2 IgG < 0.91 index (0.00-0.90)
== END ==
PROVIDERS: Referring Provider Nurse Practitioner Women's Health; Visit Provider Nurse Practitioner Women's Health
DX: Z20.2 Contact with and (suspected) exposure to infections with a predominantly sexual mode of transmission (principal)
CPT/HCPCS: 36415; 86695; 86696; 86703; 86780; 86803

== ENCOUNTER → 2022-01-22 | Outpatient (CLI) | payer MEDICAID, SELFPAY ==
[2022-01-22 14:45] LABS: HIV - WCH Non-Reactive (Nonreactive); Hepatitis B Surface Antigen Non-Reactive (Nonreactive); Hepatitis C Antibody Non-Reactive (Nonreactive); Syphilis Antibodies Non-reactive
[2022-01-25 22:07] LABS: Chlamydia By Nucleic Acid AMP Negative (Negative)
[2022-01-25 23:07] LABS: Gonococcus By Nucleic Acid AMP Negative (Negative)
== END | disposition home or self-care (01) ==
PROVIDERS: Referring Provider Obstetrics & Gynecology; Visit Provider Obstetrics & Gynecology
DX: Z11.3 Encounter for screening for infections with a predominantly sexual mode of transmission (principal)
CPT/HCPCS: 36415; 86703; 86780; 86803; 87340; 87491; 87591

== ENCOUNTER 2022-07-03 20:40 | Emergency (ER) | payer BC, MEDICAID, SELFPAY ==
[2022-07-03 20:41] VITALS: BP 146/87; PULSE 89; RESP 14; TEMP 36.2; O2SAT 100; BMI 41.5
--- NOTE | 2022-07-03 21:14 | EDS_ITS ---
HPI History of Present Illness Chief Complaint: Dental Informant: patient Onset/Context/Timing Onset: Weeks Context: Gradual Onset Timing: Waxes and wanes Quality: Aching, cramping, pressure Location: Left upper molar Worsened by: Nothing Relieved by: NSAIDs (Aspirin) Associated Symptoms Assocated Symptom - Dental: fever, jaw swelling, cold sensitivity and hot sensitivity; Negative for face swelling Narrative Narrative: Patient presents with left upper dental pain that has been getting worse over the past couple weeks. Patient states she was on antibiotics for a week prior to a dental procedure. Patient states that she had developed an abscess in the left upper molar area. Patient states that she went to a dental clinic to have the tooth pulled. Patient states they were unable to completely pull the tooth and referred her to an oral surgeon. Patient does not have an appoint with the oral surgeon yet. Patient states she is having difficulty finding an oral surgeon in her insurance network that has open availability. Patient states she has aching, cramping, and pressure over the left upper molar area. Patient states it radiates into her left ear. Patient admits to subjective fevers. Patient admits to hot and cold sensitivity. Patient states she was on Pen-Vee K and thinks she needs a stronger antibiotic than that. [facility]SH [facility] Medical History Emphysema lung PTSD (post-traumatic stress disorder) Home Medications copper 380 square mm intrauterine device (ParaGard T 380A) 1 device intrauterine ONCE 08/05/21 [History Last Taken Unknown] albuterol sulfate 90 mcg/actuation aerosol inhaler 2 puff inhalation Q6H PRN 01/22/22 [History Last Taken Unknown] amoxicillin 500 mg tablet 500 mg PO TID #30 tabs 07/03/22 [Rx Last Taken Unknown] Allergy/AdvReac Type Severity Reaction Status Date / Time venom-honey bee Allergy Swelling Verified 07/03/22 20:41 [bee venom (honey bee)] diphenhydramine AdvReac Pain in Verified 07/03/22 20:41 [From Benadryl] joints Family History Grandfather Diabetes Heart disease Kidney disease Skin cancer Myocardial infarction CVA (cerebral vascular accident) Grandmother Diabetes Myocardial infarction Mother Skin cancer Father Lung cancer COPD (chronic obstructive pulmonary disease) Mesothelioma Surgical History H/O colonoscopy Hx of tonsillectomy laser removal of condyloma S/P tonsillectomy and adenoidectomy Social History Smoking Status: Former smoker Electronic Cigarette Use: with nicotine alcohol intake: never substance use type: marijuana caffeine: Yes what type of physical activity do you participate in: none seatbelt use: never do you feel safe at home: Yes additional social history: single ROS ROS ED Constitutional Constitutional ED: Reports fever(s) and subjective; Denies chills Eyes Eyes: Denies blurry vision or change in vision ENT ENT ED: Reports rhinorrhea and sore throat Cardiovascular Cardiovascular: Denies chest pain or palpitations Respiratory/Chest Respiratory/Chest: Denies cough or dyspnea Gastrointestinal Gastrointestinal: Reports nausea and vomiting Genitourinary Genitourinary ED: Denies dysuria or hematuria Musculoskeletal Musculoskeletal: Reports neck pain; Denies back pain Integumentary Denies abscess or rash Neurologic Neurologic: Denies headache(s) or weakness Allergic/Immunologic Allergic/Immunologic ED: Denies mouth swelling or urticaria EXAM Physical Exam Const Vital Signs: 07/03/22 20:41 Temperature 97.2 F L Temperature Source Temporal Pulse Rate 89 Respiratory Rate 14 Blood Pressure 146/87 H Blood Pressure Mean 106 Pulse Ox 100 Oxygen Delivery Method Room Air Positive well nourished and well developed General Appearance ED: well developed and NAD HEENT Reports moist mucous membranes HEENT Narrative: There is gingival edema and tenderness over the left upper molar area. There is no fluctuance. There is no discharge or drainage. Oropharynx is clear. Airway is patent. Neck is supple. Trachea is midline. There is no JVD or lymphadenopathy. There is no sublingual edema or evidence of Saran's angina. Mouth ED: Yes tongue normal Mouth: tongue normal Teeth and Gingiva: gingiva abnormal Positive for gingival edema Throat: posterior oropharynx normal Neck supple and no JVD General: Negative for anterior neck swelling, tenderness or submandibular swelling Extremity normal to inspection Neuro oriented x3, CN's II-XII intact bilaterally and no sensory deficits noted Sensorium / Orientation: alert Motor Exam: strength 5/5 throughout Psych mental status grossly normal Skin no rashes or lesions noted MDM MDM MDM Narrative Medical decision making narrative: Patient was given a dose of amoxicillin here. Patient was given a prescription for amoxicillin. Patient was instructed to follow-up with an oral surgeon. Patient was given a dental referral list. Patient was instructed to take Tylenol or ibuprofen as needed for pain. Patient was instructed return if worse in any way. Patient understood and was agreeable with the plan. All questions were answered. Discharge Plan Triage Chief Complaint: Dental ED Provider: Armaan Barney Dx/Rx/DC Orders Clinical Impression: Dental abscess Instructions: ED Dental Abscess Prescriptions: New amoxicillin 500 MG tablet 500 mg PO TID Qty: 30 0RF No Action ParaGard T 380A 380 square mm intrauterine device 1 device intrauterine ONCE Rx Instructions: as a single dose albuterol sulfate 90 mcg/actuation HFA aerosol inhaler 2 puff inhalation Q6H PRN Primary Care Provider: Care Physician,No Primary Referrals: Efrain Olivas DDS [Med Staff - Active Staff] - 5-7 Days Taty Savage [Non-Staff] - 5-7 Days Care Physician,No Primary [Primary Care Provider] - Disposition Disposition: Home, Self Care
[2022-07-03 21:25] VITALS: BP 146/87; PULSE 89; RESP 14; O2SAT 100
[2022-07-03] MEDS: AMOXICILLIN 500 MG CAPSULE PO (21:34)
== END 2022-07-03 21:40 | disposition home or self-care (01) ==
PROVIDERS: Emergency Provider Emergency Medicine; Visit Provider Emergency Medicine
DX: K04.7 Periapical abscess without sinus (principal); J43.9 Emphysema, unspecified; R11.2 Nausea with vomiting, unspecified; M54.2 Cervicalgia; Z87.891 Personal history of nicotine dependence
CPT/HCPCS: 99283

== ENCOUNTER → 2022-10-26 | Outpatient (CLI) | payer MEDICAID, SELFPAY ==
[2022-10-26 18:49] LABS: HIV - WCH Non-Reactive (Nonreactive); Hepatitis C Antibody Non-Reactive (Nonreactive); Syphilis Antibodies Non-reactive
[2022-10-28 19:36] LABS: HSV 2 IgG < 0.91 index (0.00-0.90)
== END | disposition home or self-care (01) ==
LOC: LAB 16:04
PROVIDERS: Visit Provider Nurse Practitioner Women's Health
DX: Z20.2 Contact with and (suspected) exposure to infections with a predominantly sexual mode of transmission (principal)
CPT/HCPCS: 36415; 86695; 86696; 86703; 86780; 86803

== ENCOUNTER → 2022-11-01 | Outpatient (CLI) | payer MEDICAID, SELFPAY ==
[2022-11-03 21:07] LABS: Chlamydia By Nucleic Acid AMP Negative (Negative)
[2022-11-03 21:29] LABS: Gonococcus By Nucleic Acid AMP Negative (Negative)
[2022-11-10 21:31] LABS: HPV Reflexed? NOT INDICATED
== END | disposition home or self-care (01) ==
LOC: LABSPEC 16:26
PROVIDERS: Visit Provider Nurse Practitioner Women's Health
DX: Z12.4 Encounter for screening for malignant neoplasm of cervix (principal); Z11.3 Encounter for screening for infections with a predominantly sexual mode of transmission
CPT/HCPCS: 87491; 87591; 88175; G0145

== ENCOUNTER 2022-11-12 10:18 | Emergency (ER) | payer MEDICAID, SELFPAY ==
[2022-11-12 10:19] VITALS: BP 133/87; PULSE 97; RESP 14; TEMP 36.2; O2SAT 100; BMI 40.8
--- NOTE | 2022-11-12 10:26 | EX.ED.DYSGE1 ---
HPI History of Present Illness Chief Complaint: Abd Pain Narrative Narrative: 27-year-old female here with abdominal pain notes approximate 5 days of mid abdominal pain located on her bellybutton. Pain does not radiate. Notes history of but denies any abdominal surgeries. Notes nausea but no vomiting. No melena hematochezia. No increased urination, frequency urgency. Does note vaginal bleeding and abnormal periods. States she took a test at home was negative yesterday. States she is concerned about her IUD and that it may be causing her pain. Denies any chest pain or shortness of breath. [facility] Medical History (Updated 11/12/22 @ 13:[address] Simone Ruiz, DO) delivery delivered Emphysema lung PTSD (post-traumatic stress disorder) Home Medications copper 380 square mm intrauterine device (ParaGard T 380A) 1 device intrauterine ONCE 08/05/21 [History Last Taken Unknown] albuterol sulfate 90 mcg/actuation aerosol inhaler 2 puff inhalation Q6H PRN 01/22/22 [History Last Taken Unknown] ondansetron 4 mg disintegrating tablet 4 mg PO Q8H PRN PRN Nausea #10 tabs 11/12/22 [Rx Last Taken Unknown] Allergy/AdvReac Type Severity Reaction Status Date / Time venom-honey bee Allergy Swelling Verified 11/12/22 10:19 [bee venom (honey bee)] diphenhydramine AdvReac Pain in Verified 11/12/22 10:19 [From Benadryl] joints Family History Grandfather Diabetes Heart disease Kidney disease Skin cancer Myocardial infarction CVA (cerebral vascular accident) Grandmother Diabetes Myocardial infarction Mother Skin cancer Father Lung cancer COPD (chronic obstructive pulmonary disease) Mesothelioma Surgical History H/O colonoscopy Hx of tonsillectomy laser removal of condyloma S/P tonsillectomy and adenoidectomy Social History Smoking Status: Former smoker Electronic Cigarette Use: with nicotine alcohol intake: never substance use type: marijuana caffeine: Yes what type of physical activity do you participate in: none seatbelt use: never do you feel safe at home: Yes additional social history: new partner ROS ROS ED ROS Narrative Constitutional: Denies fever HEENT: Denies sore throat Neck: Denies neck pain Cardiovascular: Denies chest pain, syncope Respiratory: Denies shortness of breath GI: Endorses abdominal pain : Endorses vaginal bleeding Musculoskeletal: Denies muscle or joint pain Neurologic: Denies numbness weakness or loss of sensation Skin denies rash EXAM Physical Exam Narrative Exam Narrative: Nursing triage notes reviewed, Vital signs reviewed Constitutional: please see [facility] HENT: MMM Eyes: Pupils equal round and reactive to light, Extraocular muscles intact Neck: No stridor, no JVD, full neck ROM Lungs: Clear to auscultation, No wheezing or rales. No increased work of breathing, no conversational dyspnea, no accessory muscle use, no nasal flaring. No respiratory distress noted Heart: Regular rate and rhythm, No murmurs, No rubs and No gallops, 2+ distal pulses (radial, femoral, posterior tibial) in all extremities Abdomen: Soft, there is no tenderness, rigidity, rebound or guarding, no obvious peritoneal signs, no palpable pulsatile abdominal masses, no auscultated abdominal bruit, no hernia : No CVAT Extremities: No edema Neuro: No focal neurological deficits, cranial nerves II through XII intact, 5/5 strength in all extremities. Intact sensation to light touch in all extremities, 2+ reflexes bilateral patella dens. Normal gait. No ataxia. Skin: No rash or lesions noted Const Vital Signs: 11/12/22 10:19 11/12/22 14:04 Temperature 97.2 F L Temperature Source Temporal Pulse Rate 97 74 Respiratory Rate 14 16 Blood Pressure 133/87 H Blood Pressure Mean 102 Pulse Ox 100 100 Oxygen Delivery Method Room Air [facility] Narrative Medical decision making narrative: Chief Complaint: External records reviewed: No recent events imaging of the abdomen pelvis I considered the following differential diagnosis: AAA, small bowel obstruction, abdominal perforation, appendicitis, pancreatitis, hepatobiliary pathology (acute cholecystitis), mesenteric ischemia, abnormalities such as ovarian pathology, PID. I see nothing that would suggest an acute abdomen at this time. Based on history physical exam, risk factors, I have a low for bowel obstruction, incarcerated hernia, acute pancreatitis, intra-abdominal abscess, perforated viscus, diverticulitis, cholecystitis, appendicitis, PID, ovarian torsion, ectopic and tubo-ovarian abscess is very low. There is no evidence of peritonitis sepsis or toxicity at this time. I feel the patient can be managed as an outpatient with follow-up with her primary physician in the next 24 to 40 hours or soon as possible. Instructions have been given for the patient to return to the ED for worsening pain high fevers intractable vomiting or bleeding Factors affecting care: History of Social determinants of health: History of marijuana use, former smoker History obtained from others: None Shared decision making: I will have a discussion with the patient and or visitors regarding risk/benefits of further testing or admission. They will be made aware of of the risk/benefits inherent in this decision they will be given the opportunity to voice understanding. Consults: None Lab Data Attestation: I reviewed the patient's lab results. Lab results narrative: CBC without leukocytosis, severe anemia, no thrombocytopenia. BMP without evidence of significant electrolyte abnormalities, no anion gap, no acute kidney injury. LFTs show no evidence of hepatobiliary pathology. UA without evidence of infection Urine test is negative Labs: Laboratory Results - last 24 hr 11/12/22 11/12/22 11/12/22 12:00 12:05 12:05 WBC 10.0 RBC 4.61 Hgb 12.9 Hct 39.4 MCV 85.5 MCH 28.0 MCHC 32.7 RDW Std Deviation 44.6 H RDW Coeff of Edmundo 14.5 Plt Count 339 MPV 9.4 Immature Gran % (Auto) 0.300 Neut % (Auto) 73.5 H Lymph % (Auto) 17.1 L Hancock % (Auto) 6.3 Eos % (Auto) 2.3 Baso % (Auto) 0.5 Absolute Neuts (auto) 7.4 Absolute Lymphs (auto) 1.71 Nucleated RBC % 0 Sodium 139 Potassium 3.6 Chloride 107 Carbon Dioxide 30.0 Anion Gap 2 L BUN 13 Creatinine 0.72 Estim Creat Clear Calc 96.23 Est GFR (MDRD) Af Amer 123 Est GFR (MDRD) Non-Af 102 BUN/Creatinine Ratio 18.0 Glucose 93 Calcium 9.1 Total Bilirubin 0.30 AST 16 ALT 26 Alkaline Phosphatase 56 Total Protein 7.2 Albumin 3.7 Globulin 3.5 Albumin/Globulin Ratio 1.1 Lipase 120 Urine Color Straw Urine Clarity Clear Urine pH 7.0 Ur Specific Wheelwright 1.005 Urine Protein Negative Urine Glucose (UA) Normal Urine Ketones Negative Urine Occult Blood Negative Urine Nitrite Negative Urine Bilirubin Negative Urine Urobilinogen Normal Ur Leukocyte Esterase Negative Urine RBC 0 SEEN Urine WBC 0 SEEN Ur Squamous Epith Cells 0 SEEN Urine Bacteria 0 SEEN Urine Mucus 0 SEEN Urine Test Negative Radiography Diagnostic Testing: Clinical Impression(s) from Imaging Studies Transvaginal US 11/12/22 11:24 IMPRESSION: The IUD is lying within the lower body of the uterus. Electronically Signed: Mike Pereira MD at 13:08 EDT , Treatment and Re-Evaluation :: Repeat abdominal exam remained benign the patient is appropriate for discharge home. Discharge Plan Triage Chief Complaint: Abd Pain ED Provider: Simone Ruiz Dx/Rx/DC Orders Clinical Impression: Abdominal pain, History of use of contraceptive intrauterine device (IUD) Instructions: Abdominal Pain Prescriptions: New ondansetron 4 mg tablet,disintegrating 4 mg PO Q8H PRN PRN (Reason: Nausea) Qty: 10 0RF No Action ParaGard T 380A 380 square mm intrauterine device 1 device intrauterine ONCE Rx Instructions: as a single dose albuterol sulfate 90 mcg/actuation HFA aerosol inhaler 2 puff inhalation Q6H PRN Stand Alone Forms: ED Work / School Excuse Primary Care Provider: Care Physician,No Primary Referrals: Care Physician,No Primary [Primary Care Provider] - Activity Restrictions/Additional Instructions: Please take Zofran as needed for nausea. Please return for belly pain increases, you cannot tolerate medicine by mouth, or if your symptoms change or worsen in any way. Please follow with your primary care physician for outpatient evaluation and further treatment. Disposition Disposition: Home, Self Care Discharge Date/Time: 11/12/22 14:05
--- NOTE | 2022-11-12 11:24 | US_ITS ---
STUDY: ULTRASOUND OF THE FEMALE PELVIS - COMPLETE REASON FOR EXAM: Female, 27 years old. Lower abdominal pain, IUD X 1.5 YEARS LMP: October 24, 2022. TECHNIQUE: Transvaginal TECHNICAL QUALITY: Adequate. COMPARISON: None. FINDINGS: The uterus is anteverted and is in a midline position. The uterus measures 8.4 cm x 5 cm x 4.2 cm. Normal uterine cervix. The endometrium measures 11 mm in thickness, and is hyperechoic. There is no demonstrated endometrial mass. There is no demonstrated myometrial mass. I.U.D. - The patient does have an I.U.D.. The IUD is lying within the lower body of the uterus. The right ovary is visualized. The right ovary measures 3.4 cm x 2.7 cm x 2.9 cm. There is no right ovarian cyst or ovarian mass. There is no visualized right adnexal mass or complex lesion. There is normal arterial and normal venous vascularity. The left ovary is visualized. The left ovary measures 2.9 cm x 3.1 cm x 2.4 cm. There is no left ovarian cyst or ovarian mass. There is no visualized left adnexal mass or complex lesion. There is normal arterial and normal venous vascularity. There is minimal fluid in the cul-de-sac. US/Transvaginal Non- IMPRESSION: The IUD is lying within the lower body of the uterus. Electronically Signed: Mike Pereira MD at 13:08 EDT ,
[2022-11-12] MEDS: Ketorolac 15 MG/ML Vial IV (12:11)
[2022-11-12] MEDS: Ondansetron 4 MG/2 ML Vial IV (12:11)
[2022-11-12] MEDS: 0.9% Normal Saline 1,000 ML 1000 ML IV (12:11)
[2022-11-12 12:12] LABS: Bacteria 0 SEEN /hpf (None Seen); Mucous, Urine 0 SEEN /hpf (<or=2+); Red Blood Cells-Urine 0 SEEN /hpf (0-5); Squamous Epithelial Cells - UA 0 SEEN /hpf (5-10); White Blood Cells 0 SEEN /hpf (0-5)
[2022-11-12 12:13] LABS: Absolute Lymphocyte Count 1.71 X10^3/uL (0.83-4.51); Absolute Neutrophil Count 7.4 X10^3/uL (2.0-7.7); Basophil# 0.05 X10^3/uL; Basophil% 0.5 % (0-1); Eosinophil# 0.23 X10^3/uL; Eosinophils% 2.3 % (0-5); Hematocrit 39.4 % (37-47); Hemoglobin 12.9 g/dL (12.0-15.0); Lymphocyte # 1.71 X10^3/ul (0.83-4.51); Lymphocyte % 17.1 % (19-41); Mean Corp Hgb Conc 32.7 g/dL (32-36); Mean Corpuscular Volume 85.5 fL (81-99); Mean Platelet Vol. 9.4 fl (6.2-12.0); Monocyte# 0.63 X10^3/uL; Monocyte% 6.3 % (0-10); NRBC Flagged by Analyzer 0 % (0-5); Neutrophil # 7.35 X10^3/uL (2.7-7.7); Neutrophil % 73.5 % (47-70); Platelet Count 339 K/mm3 (150-450); RBC Distribution Width CV 14.5 % (11.6-14.6); RBC Distribution Width SD 44.6 fl (35.1-43.9); Red Blood Count 4.61 M/mm3 (4.2-5.4)
[2022-11-12 12:14] LABS: Color, Urine Straw (Yellow); Glucose, Dipstick Normal (Normal); Ketone-Dipstick Negative (Negative); Leukocyte Esterase-Dipstick Negative /ul (Negative); Nitrite-Dipstick Negative (Negative); Occult Blood-Urine Negative /ul (Negative); Protein-Dipstick Negative (Negative); Specific Gravity, Urine 1.005 (1.002-1.030); Urine Bilirubin Dipstick Negative (Negative); Urine Clarity Clear (Clear); Urine Urobilinogen Normal (Normal)
[2022-11-12 12:17] LABS: Internal QC Validated? YES +Cl - CLEAR BKGD; Pregnancy, Urine Negative Negative
[2022-11-12 12:29] LABS: ALB/GLOB Ratio 1.1 RATIO (0.9-2.4); AST(SGOT) 16 U/L (15-37); Alanine Aminotransfer ALT/SGPT 26 U/L (13-56); Albumin, Serum 3.7 g/dL (3.2-5.0); Alkaline Phosphatase 56 U/L (45-117); Anion Gap 2 (5-15); BUN 13 mg/dL (7-18); Calcium,Total 9.1 mg/dL (8.5-10.1); Chloride 107 mmol/L (98-107); Creatinine, Serum 0.72 mg/dL (0.55-1.02); EST Glomerular Filtration Rate 102 mL/min (>60); Est Glom Filt Rate - Afr Amer 123 mL/min (>60); Estimated Creatinine Clearance 96.23 ml/min; Globulin 3.5 g/dL (2.2-4.2); Glucose 93 mg/dL (74-106); Lipase 120 U/L (73-393); Potassium 3.6 mmol/L (3.5-5.1); Protein, Total 7.2 g/dL (6.4-8.2); Sodium Level 139 mmol/L (136-145)
[2022-11-12 14:04] VITALS: PULSE 74; RESP 16; O2SAT 100
== END 2022-11-12 14:05 | disposition home or self-care (01) ==
PROVIDERS: Emergency Provider Emergency Medicine; Visit Provider Emergency Medicine
DX: R10.33 Periumbilical pain (principal); J43.9 Emphysema, unspecified; R11.0 Nausea; N93.9 Abnormal uterine and vaginal bleeding, unspecified; Z97.5 Presence of (intrauterine) contraceptive device; Z87.891 Personal history of nicotine dependence
CPT/HCPCS: 76830; 80053; 81001; 81025; 83690; 85025; 93976; 96361; 96374; 96375; 99283; J7030; A4216; J2405

== ENCOUNTER → 2022-12-02 | Outpatient (CLI) | payer MEDICAID, SELFPAY ==
--- NOTE | 2022-12-02 | IMM_PTH ---
PATIENT: GENE FIGUEROA LOC: [facility] U#:[id number] AGE/SX: 27/ ROOM: RE12/02/[address]: Dr. Mallory Parmar DO : 1995 BED: DIS: 12/02/2022 SPEC #: [id number] RECD: 12/06/22 13:53 STATUS: KAYLYN RESendy #: [id number] KEVIN: 12/02/22 00:[address]: Mallory Parmar DEPT: IMMUNOHISTOCHEMISTRY RECD BY: Saba Brown ENTERED: 12/06/22 13:54 SP TYPE: IMMUNO OTHR DR: No Primary Care Phys Tissues: B - Uterine cervix, NOS Procedures: p16 (initial) KI-67 (add) PHYSICIAN & INSTITUTION [place] [id number] SPECIMEN INFORMATION: Tissue Source: B ? Cervix, 11 o?clock Clinical Info: Abnormal pap Specimen Number: [id number] CPT code: 11525, 48571 METHODOLOGY: Deparaffinized sections of prefer/formalin-fixed tissue or PAP/DQ stained slides are incubated with monoclonal/polyclonal antibodies/oligonucleotide probes. Localization is made via biotin free immunoperoxidase method. Appropriate controls are performed and reacted as expected. Results on target cell population are indicated in the following table: RESULTS: ANTIBODY / CLONE RESULT Block B P16 (E6H4) positive, block staining Ki-67 (30-9) positive, moderate to high These tests were developed and their performance characteristics determined by [facility]. They may not have been cleared or approved by the U.S. Food and Drug Administration. The FDA has determined that such clearance or approval is not necessary. The above immunohistochemical/dualISH markers are ordered and reviewed by the Pathologist. INTERPRETATION: B. 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 SJ:hari 12/07/2022
--- NOTE | 2022-12-02 | CER_PTH ---
PATIENT: GENE FIGUEROA LOC: [facility] U#:[id number] AGE/SX: 27 ROOM: RE12/02/[address]: Dr. Mallory Parmar DO : 1995 BED: DIS: 12/02/2022 SPEC #: [id number] RECD: 12/02/22 17:56 STATUS: KAYLYN GRULLONSendy #: [id number] KEVIN: 12/02/22 00:[address]: Mallory Parmar DEPT: SURGICAL PATHOLOGY RECD BY: King Zuñiga ENTERED: 12/03/22 09:44 SP TYPE: CERV OTHR DR: No Primary Care Phys Tissues: A - Uterine cervix, NOS B - Uterine cervix, NOS Procedures: Surgery Specimen Level IV HEADER OPERATION: Colposcopy PRE-OP DIAGNOSIS: Abnormal pap TISSUE SUBMITTED: A ? Endocervical curettings, B ? Cervix 11 o?clock MICROSCOPIC DIAGNOSIS A. Endocervical curettings: Fragments of benign endocervical epithelium, negative for dysplasia. B. 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 Chronic inflammation and squamous metaplasia. See comment. YESSICA:hari 12/06/2022 COMMENT B. Immunohistochemistry ([id number]) for surrogate HPV marker (p16) supports the above diagnosis. MICROSCOPIC DESCRIPTION Slides are reviewed. GROSS DESCRIPTION A - Received in fixative is one container labeled with the patient's name and designated ECC. The specimen consists of a scant amount of soft tissue. The specimen is totally submitted for cell block preparation. B - Received in fixative is one container labeled with the patient's name and designated 11 o'clock. The specimen consists of one irregular fragment of light shoemaker soft tissue that measures 0.4 x 0.4 x 0.1 cm. The specimen is totally submitted in one cassette. / YESSICA:hari 12/03/2022 TC:5 CPT: 97332 x2
== END | disposition home or self-care (01) ==
PROVIDERS: Referring Provider Obstetrics & Gynecology; Visit Provider Obstetrics & Gynecology
DX: N72 Inflammatory disease of cervix uteri (principal); N87.1 Moderate cervical dysplasia
CPT/HCPCS: 88305; 88341; 88342

== ENCOUNTER 2023-01-21 07:52 | Day surgery (SDC) | payer MEDICAID, SELFPAY ==
[2023-01-21] VITALS (8 sets, daily range): BP systolic 101–127; BP diastolic 65–85; PULSE 48–81; RESP 16; TEMP 36.3–36.6; O2SAT 95–100; BMI 39.0
--- NOTE | 2023-01-21 | MISC_PTH ---
PATIENT: GENE FIGUEROA [place] [facility] [place][id number] AGE/SX: 27/ ROOM: RE01/21/[address]: Dr. Mallory Parmar DO : 1995 BED: DIS: 01/21/2023 SPEC #: [id number] RECD: 01/21/23 11:56 STATUS: KAYLYN GRULLONSendy #: [id number] KEVIN: 01/21/23 00:[address]: Mallory Parmar DEPT: SURGICAL PATHOLOGY RECD BY: King Zuñiga ENTERED: 01/21/23 11:56 SP TYPE: [facility] OTHR DR: No Primary Care Phys Tissues: UTERINE CERVIX LEEP Procedures: Surgery Specimen Level V HEADER OPERATION: LEEP cone, IUD insertion PRE-OP DIAGNOSIS: Cervical intraepithelial neoplasia II; desires contraception TISSUE SUBMITTED: Cervical LEEP MICROSCOPIC DIAGNOSIS Cervix, LEEP conization: Mild to moderate squamous dysplasia, NADJA I-II (HSIL). Squamous metaplasia and chronic inflammation. Margins of excision are free of dysplasia. See comment. AM:hari 01/24/2023 COMMENT Results from immunohistochemistry ([id number]) for surrogate HPV marker (p16) will be reported separately. Case has been reviewed in consultation with Dr. Dumont who concurs with the above diagnosis. IDC:YESSICA MICROSCOPIC DESCRIPTION Slides are reviewed. GROSS DESCRIPTION Received in fixative is one container labeled with the patient's name and designated cervical LEEP. The specimen consists of a piece of shoemaker, indurated tissue consistent with LEEP conization measuring 1.7 x 1.2 x 0.7 cm. No mucosal lesion is identified. Non-mucosal surface is inked black. Also present in the container is an elongated piece of shoemaker, indurated tissue measuring 2.0 x 0.7 x 0.2 cm. This piece also does not show any mucosal lesion. Non-mucosal surface is inked black. This piece may represent the top half of the LEEP conization. Both pieces are serially sectioned and submitted entirely in six cassettes as follows: 1-4 - LEEP conization piece with each cassette containing one quadrant, 5 & 6 - second piece of tissue, possible top half. / YESSICA:hari 01/21/2023 TC:3 CPT: 62987
--- NOTE | 2023-01-21 | IMM_PTH ---
PATIENT: GENE FIGUEROA LOC: [facility] [place] U#:[id number] AGE/SX: 27 ROOM: RE01/21/[address]: Dr. Mallory Parmar DO : 1995 BED: DIS: 01/21/2023 SPEC #: [id number] RECD: 01/24/23 12:39 STATUS: KAYLYN TERRI #: [id number] KEVIN: 01/21/23 00:[address]: Mallory Parmar DEPT: IMMUNOHISTOCHEMISTRY RECD BY: Saba Brown ENTERED: 01/24/23 12:40 SP TYPE: IMMUNO OTHR DR: No Primary Care Phys Tissues: Uterine cervix, NOS Procedures: p16 (initial) KI-67 (add) P16 (add) PHYSICIAN & INSTITUTION [place] [phone] SPECIMEN INFORMATION: Tissue Source: Cervix, LEEP conization Clinical Info: NADJA II Specimen Number: [id number] #2 & 4 CPT code: 83171, 43518 x3 METHODOLOGY: Deparaffinized sections of prefer/formalin-fixed tissue or PAP/DQ stained slides are incubated with monoclonal/polyclonal antibodies/oligonucleotide probes. Localization is made via biotin free immunoperoxidase method. Appropriate controls are performed and reacted as expected. Results on target cell population are indicated in the following table: RESULTS: ANTIBODY / CLONE RESULT Block 2 P16 (E6H4) positive, block-like Ki-67 (30-9) positive, moderate Block 4 P16 (E6H4) positive, block-like Ki-67 (30-9) positive, moderate These tests were developed and their performance characteristics determined by [facility]. They may not have been cleared or approved by the U.S. Food and Drug Administration. The FDA has determined that such clearance or approval is not necessary. The above immunohistochemical/dualISH markers are ordered and reviewed by the Pathologist. INTERPRETATION: Cervix, LEEP conization: Moderate squamous dysplasia, NADJA II (HSIL). AM:hari 01/25/2023
[2023-01-21 08:11] LABS: Internal QC Validated? YES +Cl - CLEAR BKGD; Pregnancy, Urine Negative Negative
[2023-01-21] MEDS: Lactated Ringers 1,000 ML 15 ML IV (08:31)
--- NOTE | 2023-01-21 09:47 | HP.PCM_ITS ---
History and Physical Date of Admission: 01/21/23 Intake Vital Signs ? 01/05/2315:21 01/05/2315:30 Height 5 ft 3 in 5 ft 3 in Weight: ? 218 lb 8 oz BMI ? 38.7 BP ? 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 delivery delivered NADJA II (cervical intraepithelial neoplasia II) Emphysema lung PTSD (post-traumatic stress disorder) Surgical History? H/O colonoscopy Hx of tonsillectomy laser removal of condyloma S/P tonsillectomy and adenoidectomy Family History? Grandfather Diabetes Heart disease Kidney disease Skin cancer Myocardial infarction CVA (cerebral vascular accident)Grandmother Diabetes Myocardial infarctionMother Skin cancerFather Lung cancer COPD (chronic obstructive pulmonary disease) Mesothelioma Social History? Smoking Status:? Former smoker Electronic Cigarette Use:? with nicotine alcohol intake:? never substance use type:? marijuana caffeine:? Yes what type of physical activity do you participate in:? none seatbelt use:? never do you feel safe at home:? Yes additional social history:? new partner History ? ? ? 2 ? Elective abortions ? Hx Para ? ? ? 1 ? Spontaneous abortions ? ? ? 1 Hx # Term Pregnancies ? Ectopic pregnancies ? Hx # Pregnancies ? ? ? 1 ? Multiple births ? # of living children ? ? ? 1 Past Pregnancies Del. Date Name GA/Weeks Outcome Route Bth Weight Gen Labor Lgth Anesthesia [place] Provider FOB 11/14/18 [facility] 39 live - full term C- section ? Male ? spinal [facility] ? Delivery Date: 11/14/18? Last Updated by: Jenise Mohan ? ? ? AoD 6-7cm, recurrent variables, nuchal cord tight x2 HPI LEEP/IUD insert Details: GENE FIGUEROA is a 27 year old who presents for preop exam for LEEP and IUD insertion. Her colpo biopsy showed CIN2. She is extremely nervous about the procedure and requested ativan to be given prior to arrival to the hospital.? ROS Const ROS Unobtainable: All systems reviewed & are unremarkable except as noted in H Resp Resp: Reports system reviewed and no additional complaints, except as documented; Denies cough GI GI: Reports as per HPI Psych Psych: Reports system reviewed and no additional complaints, except as documented Exam Const General: cooperative, healthy appearing, comfortable and no acute distress Resp Effort & Inspection: normal respiratory effort Skin General: no rashes or lesions noted Psych Appearance: grossly normal Speech and Movement: speech and movement normal Coding Level of Care Code Off vis,est,level 4 Diagnoses NADJA II (cervical intraepithelial neoplasia II)? N87.1 LGSIL of cervix of undetermined significance? R87.612 Assessment and Plan Assessment and Plan (1) NADJA II (cervical intraepithelial neoplasia II): ?Status:?Acute ?Comment: needs LEEP (2) LGSIL of cervix of undetermined significance: ?Status:?Acute ?Comment: colp Plan After discussing the patient's diagnosis and treatment plan options, patient wishes to proceed with surgical management.? I have discussed with the patient the risks, benefits, and alternatives of the procedure which include but are not limited to risks of anesthesia, bleeding, infection, possible damage to bowel, bladder, or surrounding vasculature which could lead to additional surgery to evaluate any complications.? Patient agrees to procedure and wishes to proceed.? ACOG/uptodate references given for additional information regarding procedure.? plan for leep and placement of IUD under anesthesia.
--- NOTE | 2023-01-21 09:47 | DCINST_ITS ---
Discharge Instructions Diet Discharge Diet: No restrictions Activity Discharge Activity: Return to Normal Activity and [address] (while taking narcotic pain mediations.) May resume sexual activity in: 4 weeks (Nothing in the vagina for 4 weeks.) Dressing / Incision Call your doctor if you observe: Fever of 101 or Higher and Using more than 1 pad per hour Follow Up Care Please Follow Up With: Mallory Parmar DO When: Call [phone] for follow-up appointment. Test Results: Test results from this visit will be discussed in further detail at your follow- up appointment, if applicable. Discharge Plan Admission Primary Reason for Your Visit: LEEP and IUD insertion Attending Provider: Mallory Parmar Primary Care Provider: Care PhysicianLilly Primary Discharge Orders/Prescriptions Prescriptions: New tramadol 50 mg tablet 50 mg PO TID PRN (Reason: pain) Qty: 20 0RF Continued albuterol sulfate 90 mcg/actuation HFA aerosol inhaler 2 puff inhalation Q6H PRN (Reason: SOB) lorazepam 1 mg tablet 1 mg PO X1 Label Comments: 1 mg orally once take 30 minutes prior to procedure Referrals / Follow Up: Care Physician,No Primary [Primary Care Provider] - Disposition Disposition (needs filled in before D/C Order can be placed): Home, Self Care
[2023-01-21] MEDS: Lidocaine 1% /Epi 1:100 (20ml) 20 ML Vial INFILT (10:07)
[2023-01-21] MEDS: FERRIC SUBSULFATE 8 GM SOLN (10:15)
[2023-01-21] MEDS: Levonorgestrel IUD (Liletta) 1 EACH INTRA-UTER (10:17)
--- NOTE | 2023-01-21 10:31 | OP.PCM_ITS ---
Problems Associated Problem List Diagnoses (1) Contraceptive management: (2) LGSIL of cervix of undetermined significance: (3) NADJA II (cervical intraepithelial neoplasia II): Report of Operation Date of Procedure: 01/21/23 Pre-Operative Diagnosis: NADJA 2, contraceptive management Post-Operative Diagnosis: NADJA 2, contraceptive management Surgery/Procedure Performed:: LEEP, Intrauterine device placement Description of Surgical Findings:: normal appearing cervix. 7 cm uterus Surgeon: Mallory Parmar charging crane operator: None Type of Anesthesia: MAC/Supplemental/Local Anesthesiologist: Graham Lord Specimen's removed: cervix leep specimen Estimated Blood Loss (mL): 10cc Description of Procedure: The patient was taken to the operating room and placed under MAC anesthesia prepped and draped in normal sterile fashion the dorsal lithotomy position. Paracervical block was placed with 1% lidocaine and using a loop electrode the outer part of the cervix was removed including the squamocolumnar junction. Endocervical curettings were taken and the base of the cervix was cauterized around the borders and the base to obtain excellent hemostasis. A single toothed tenaculum was placed at the anterior cervix and the uterus sounded to 7 cm. The liletta IUD was inserted to the fundus without difficulty. Strings were trimmed to 3 cm from the cervix. Monsel's paste was placed and patient was awoken and taken recovery in stable condition. Complications none Admit VTE Documentation VTE Present on Admission: No VTE Mechan Device Prophylaxis: None VTE Pharm Prophylaxis ordered?: No Multi Select Codes Urinary/Genital Urinary/Genital CPT Codes: 09202 LEEP and Other Procedure See Report (IUD insertion )
[2023-01-21] MEDS: HYDROcodone Bitartrate/Apap 5/325 Tablet PO (11:35)
--- NOTE | 2023-01-21 12:23 | SUR.PHASEII ---
1100- PT IN BATHROOM. DIZZY, SWEATING, PALE. BACK TO ROOM VIA WHEELCHAIR. BP 104/67, HR 48, SPO2 95. PT LAYING BACK INTO BED. FEELING BETTER. BP RECHECKED BP 119/65, HR 80, SPO2 95
== END 2023-01-21 12:31 | disposition home or self-care (01) ==
LOC: SDC 07:52 → AC 07:53
PROVIDERS: Anesthesiology; Referring Provider Obstetrics & Gynecology; Visit Provider Obstetrics & Gynecology
PROC: 0UBC7ZZ Excision of Cervix, Via Natural or Artificial Opening (ICD-10-PCS; CPT 57522; principal; 2023-01-21 09:15)
DX: N87.1 Moderate cervical dysplasia (principal); Z87.891 Personal history of nicotine dependence
CPT/HCPCS: 57522; 58300; 00940; 81025; 88307; 88341; 88342; J7120; J2405

== ENCOUNTER 2023-01-31 19:28 | Emergency (ER) | payer MEDICAID, SELFPAY ==
[2023-01-31 19:30] VITALS: BP 135/79; PULSE 87; RESP 16; TEMP 36.3; O2SAT 100; BMI 39.6
--- NOTE | 2023-01-31 20:55 | RAD_ITS ---
STUDY: X-RAY - LUMBAR SPINE REASON FOR EXAM: Female, 27 years old. back pain TECHNIQUE: 3 view(s) of the lumbar spine were obtained. COMPARISON: None FINDINGS: Normal lumbar lordosis. There is no substantial scoliosis. There is a normal alignment of the vertebrae. Normal vertebral bodies and endplates. Normal disc space heights. There is no demonstrated fracture. The soft tissue structures are unremarkable. RAD/Lumbar Spine 2 or 3 Views IMPRESSION: Normal x-ray examination of the lumbar spine. Electronically Signed: Jonathan Willson MD at 21:19 EDT ,
[2023-01-31] MEDS: Ketorolac 15 MG/ML Vial IM (21:32)
[2023-01-31 21:43] LABS: Color, Urine Yellow (Yellow); Glucose, Dipstick Normal (Normal); Ketone-Dipstick Negative (Negative); Leukocyte Esterase-Dipstick 500 /ul (Negative); Mucous, Urine 0 SEEN /hpf (<or=2+); Nitrite-Dipstick Negative (Negative); Occult Blood-Urine Negative /ul (Negative); Protein-Dipstick Negative (Negative); Red Blood Cells-Urine 0 SEEN /hpf (0-5); Urine Bilirubin Dipstick Negative (Negative); Urine Clarity Clear (Clear); Urine Urobilinogen Normal (Normal)
[2023-01-31 21:54] LABS: Bacteria RARE /hpf (None Seen); Squamous Epithelial Cells - UA 0-5 SEEN /hpf (5-10); White Blood Cells 0-5 SEEN /hpf (0-5)
[2023-01-31 21:56] LABS: Internal QC Validated? YES +Cl - CLEAR BKGD; Pregnancy, Urine Negative Negative
--- NOTE | 2023-01-31 22:09 | EDS_ITS ---
HPI History of Present Illness Chief Complaint: Back Narrative Narrative: [id number] female presenting with lower back pain. She states this is an acute on chronic issue. She has history of degenerative disc disease. No history of recent trauma. She states that she did recently have a an IUD placed recently by her marine service operator. She states it was only a couple of hours and she had to go back and have it replaced history of having 1 migrated outward of her vagina. And she is concerned this may have happened again. She relates it to the back pain that she has. Patient states she was at urgent care today and they wanted her to come get a CT scan to see if her IUD had fallen out. [facility] Medical History Alcohol use Anemia Arthritis Back pain Blackout delivery delivered Chronic cough NADJA II (cervical intraepithelial neoplasia II) Easy bruising Emphysema lung Former smoker Gastric reflux History of echocardiogram History of IBS Injury of head and neck Marijuana use Personality disorder POTS (postural orthostatic tachycardia syndrome) PTSD (post-traumatic stress disorder) Seizures Shortness of breath on exertion Syncope Thyroid disease Home Medications albuterol sulfate 90 mcg/actuation aerosol inhaler 2 puff inhalation Q6H PRN SOB 01/22/22 [History Last Taken Unknown] fluconazole 150 mg tablet 150 mg PO .COMPLEX #2 tabs 01/31/23 [Rx Last Taken Unknown] lidocaine 5 % topical patch (Lidoderm) 1 patch topical DAILY #15 ea 01/31/23 [Rx Last Taken Unknown] tizanidine 4 mg tablet 4 mg PO Q8H PRN muscle spasticity #20 tabs 01/31/23 [Rx Last Taken Unknown] Allergy/AdvReac Type Severity Reaction Status Date / Time venom-honey bee Allergy Swelling Verified 01/31/23 19:29 [bee venom (honey bee)] diphenhydramine AdvReac Pain in Verified 01/31/23 19:29 [From Benadryl] joints Family History Grandfather Diabetes Heart disease Kidney disease Skin cancer Myocardial infarction CVA (cerebral vascular accident) Grandmother Diabetes Myocardial infarction Mother Skin cancer Father Lung cancer COPD (chronic obstructive pulmonary disease) Mesothelioma Surgical History H/O colonoscopy laser removal of condyloma S/P tonsillectomy and adenoidectomy Social History Smoking Status: Current every day smoker tobacco type: e-cigarettes Electronic Cigarette Use: with nicotine alcohol intake: never substance use type: marijuana caffeine: Yes what type of physical activity do you participate in: none seatbelt use: never do you feel safe at home: Yes additional social history: new partner ROS ROS ED Constitutional Constitutional ED: Denies chills or fever(s) Eyes Eyes: Denies change in vision ENT ENT ED: Denies rhinorrhea or sore throat Cardiovascular Cardiovascular: Denies chest pain or palpitations Respiratory/Chest Respiratory/Chest: Denies dyspnea or dyspnea on exertion Gastrointestinal Gastrointestinal: Denies abdominal pain Genitourinary Genitourinary ED: Denies dysuria or hematuria Musculoskeletal Musculoskeletal: Denies arthralgias or back pain Integumentary Denies abscess Neurologic Neurologic: Denies headache(s) or paresthesias EXAM Physical Exam Const Vital Signs: 01/31/23 19:30 Temperature 97.4 F L Temperature Source Temporal Pulse Rate 87 Respiratory Rate 16 Blood Pressure 135/79 H Blood Pressure Mean 97 Pulse Ox 100 Positive well nourished General Appearance ED: NAD; Negative for pallor Eyes PERRL and EOMs intact bilaterally Resp normal respiratory effort and clear to auscultation bilaterally Cardio regular rate GI normal to inspection, nondistended, normoactive bowel sounds Back/Spine Back/Spine Narrative: Tenderness to palpation of the area around T12-L1. No focal deformities. Extremity normal to inspection Neuro oriented x3 and no sensory deficits noted Sensorium / Orientation: alert Psych mental status grossly normal Skin no rashes or lesions noted General Skin Exam: Negative for jaundice or pallor MDM MDM MDM Narrative Medical decision making narrative: Patient with acute on chronic back pain. Patient medicated with Toradol, Zanafl ex, Lidoderm patch. hCG negative. I did obtain a urinalysis to assess for UTI or pyelonephritis and this is negative. I do not see any significant amount of occult blood. X-rays of lumbar spine reveal mitral patient had acute fracture subluxation. Patient counseled on findings. She is counseled if she needs further gynecology care she should see her marine service operator. I do not believe she needs any further imaging. Impression: 1. acute lumbar strain 2. History of IUD placed Lab Data Attestation: I reviewed the patient's lab results. Labs: Laboratory Results - last 24 hr 01/31/23 21:35 Urine Color Yellow Urine Clarity Clear Urine pH 7.0 Ur Specific [place] 1.010 Urine Protein Negative Urine Glucose (UA) Normal Urine Ketones Negative Urine Occult Blood Negative Urine Nitrite Negative Urine Bilirubin Negative Urine Urobilinogen Normal Ur Leukocyte Esterase 500 H Urine RBC 0 SEEN Urine WBC 0-5 SEEN Ur Squamous Epith Cells 0-5 SEEN Urine Bacteria RARE Urine Mucus 0 SEEN Urine Test Negative Radiography Diagnostic Testing: Clinical Impression(s) from Imaging Studies Lumbar Spine X-Ray 01/31/23 20:55 IMPRESSION: Normal x-ray examination of the lumbar spine. Electronically Signed: Jonathan Willson MD at 21:19 EDT , Discharge Plan Triage Chief Complaint: Back ED Provider: Gilbert Orozco Dx/Rx/DC Orders Instructions: ED Back Pain (Acute or Chronic) Prescriptions: New tizanidine 4 mg tablet 4 mg PO Q8H PRN (Reason: muscle spasticity) Qty: 20 0RF lidocaine [Lidoderm] 5 % adhesive patch,medicated 1 patch topical DAILY Qty: 15 0RF Rx Instructions: leave on most painful area for up to 12 hrs No Action albuterol sulfate 90 mcg/actuation HFA aerosol inhaler 2 puff inhalation Q6H PRN (Reason: SOB) fluconazole 150 mg tablet 150 mg PO .COMPLEX Qty: 2 0RF Rx Instructions: 150 mg PO take one po now and repeat in 3 days Primary Care Provider: Care Physician,No Primary Referrals: Care Physician,No Primary [Primary Care Provider] - Disposition Disposition: Home, Self Care
[2023-01-31] MEDS: tiZANidine HCl 2 MG Tablet 4 MG PO (22:19)
[2023-01-31] MEDS: Lidocaine 5% Patch 1 PATCH TOPICAL (22:20)
[2023-01-31 22:21] VITALS: PULSE 78; RESP 16; O2SAT 100
== END 2023-01-31 22:22 | disposition home or self-care (01) ==
PROVIDERS: Emergency Provider Student in an Organized Health Care Education/Training Program; Visit Provider Student in an Organized Health Care Education/Training Program
DX: S39.012A Strain of muscle, fascia and tendon of lower back, initial encounter (principal); J43.9 Emphysema, unspecified; X58.XXXA Exposure to other specified factors, initial encounter; G89.29 Other chronic pain; F17.290 Nicotine dependence, other tobacco product, uncomplicated; Z97.5 Presence of (intrauterine) contraceptive device
CPT/HCPCS: 72100; 81001; 81025; 96372; 99284

== ENCOUNTER → 2023-02-09 | Outpatient (CLI) | payer MEDICAID, SELFPAY ==
--- NOTE | 2023-02-09 16:23 | US_ITS ---
EXAM: US PELVIS TRANSABDOMINAL AND TRANSVAGINAL, COMPLETE CLINICAL INDICATION: check IUD placement TECHNIQUE: Transabdominal and transvaginal pelvic ultrasound was performed with grayscale and color Doppler imaging. Transvaginal imaging was used for better evaluation of the endometrium and adnexa. COMPARISON: 11/12/2022 FINDINGS: UTERUS/CERVIX: Uterus measures 8.2 x 4.2 x 5.1 cm. The endometrium measures 1 cm. Anteverted. There is no uterine mass. RIGHT OVARY: The right ovary measures 3.9 x 2.5 x 2.3 cm. Blood flow is present in the right ovary. LEFT OVARY: The left ovary measures 3.1 x 2.3 x 2.8 cm. Blood flow is present in the left ovary. FREE FLUID: There is free fluid in the cul-de-sac. BLADDER: Unremarkable as visualized. Wall is normal thickness for degree of distention. TUBES, LINES AND DEVICES: A linear echogenic structure in the lower uterine segment extending to the cervix compatible with an intrauterine device. US/Pelvic w/ Transvaginal IMPRESSION: A linear echogenic structure compatible with an intrauterine device located within the lower uterine segment/cervical area. This is not significantly changed in location compared to the reference exam. There is mild free fluid in the cul-de-sac. Electronically Signed: Casey Curtis MD at 23:13 EDT ,
== END | disposition home or self-care (01) ==
LOC: US 16:22
PROVIDERS: Referring Provider Obstetrics & Gynecology; Visit Provider Obstetrics & Gynecology
DX: Z30.431 Encounter for routine checking of intrauterine contraceptive device (principal)
CPT/HCPCS: 76830; 76856

== ENCOUNTER → 2023-04-11 | Outpatient (CLI) | payer MEDICAID, SELFPAY ==
--- NOTE | 2023-04-11 07:48 | US_ITS ---
INDICATION: viability EXAMINATION: Ultrasound US OB Transvaginal TECHNIQUE: Transabdominal pelvic ultrasound was performed. Grayscale, spectral waveform, and color flow Doppler evaluation of the adnexa. COMPARISON: Pelvic ultrasound from 02/10/2019 LMP: [02/14/2023 Beta-hCG: Unknown FINDINGS: UTERUS: 10.4 x 7.0 x 5.8 cm. RIGHT OVARY: 3.3 x 3.7 x 1.5 cm. Normal. LEFT OVARY: 3.5 x 3.1 x 2.5 cm.. There is a 2.0 cm corpus luteal cyst. FREE FLUID: None. INTRAUTERINE GESTATIONAL SAC(s) (size/shape): Single. 3.4 cm. Normal appearance of the gestational sac. YOLK SAC: Identified POLE: Identified CRL 1.2 cm. ESTIMATED GESTATION AGE: 8 weeks 0 days. HEART MOTION: 150 bpm. PLACENTA: Not visualized due to age. SUBCHORIONIC HEMORRHAGE: None. AMNIOTIC FLUID: Qualitatively normal. US/Transvaginal w/Preg US IMPRESSION: Single live intrauterine . Estimated gestational age is 8 weeks 0 days. Electronically Signed: Asim Neff DO at 10:06 EDT ,
== END | disposition home or self-care (01) ==
LOC: US 07:48
PROVIDERS: Referring Provider Obstetrics & Gynecology; Visit Provider Obstetrics & Gynecology
DX: N91.2 Amenorrhea, unspecified (principal)
CPT/HCPCS: 76817

== ENCOUNTER → 2023-04-14 | Outpatient (CLI) | payer MEDICAID, SELFPAY ==
[2023-04-18 08:07] LABS: Chlamydia By Nucleic Acid AMP Negative (Negative); Gonococcus By Nucleic Acid AMP Negative (Negative)
== END | disposition home or self-care (01) ==
PROVIDERS: Visit Provider Obstetrics & Gynecology
DX: Z34.90 Encounter for supervision of normal pregnancy, unspecified, unspecified trimester (principal); Z3A.00 Weeks of gestation of pregnancy not specified
CPT/HCPCS: 87491; 87591

== ENCOUNTER → 2023-05-16 | Outpatient (CLI) | payer MEDICAID, SELFPAY | END | disposition home or self-care (01) | LOC: LAB 17:01 | PROVIDERS: Referring Provider Registered Nurse; Visit Provider Registered Nurse | DX: Z34.90 Encounter for supervision of normal pregnancy, unspecified, unspecified trimester (principal); Z3A.00 Weeks of gestation of pregnancy not specified | CPT/HCPCS: 87086 ==

== ENCOUNTER → 2023-09-02 | Outpatient (CLI) | payer MEDICAID, SELFPAY ==
[2023-09-02 15:03] LABS: Absolute Lymphocyte Count 1.48 X10^3/uL (0.83-4.51); Absolute Neutrophil Count 7.4 X10^3/uL (2.0-7.7); Basophil# 0.04 X10^3/uL; Basophil% 0.4 % (0-1); Hematocrit 34.9 % (37-47); Hemoglobin 11.7 g/dL (12.0-15.0); Lymphocyte # 1.48 X10^3/ul (0.83-4.51); Lymphocyte % 15.4 % (19-41); Mean Corp Hgb Conc 33.5 g/dL (32-36); Mean Corpuscular Hgb 28.7 pg (27.0-32.0); Mean Corpuscular Volume 85.5 fL (81-99); Mean Platelet Vol. 9.5 fl (6.2-12.0); Monocyte# 0.53 X10^3/uL; Monocyte% 5.5 % (0-10); NRBC Flagged by Analyzer 0 % (0-5); Neutrophil # 7.38 X10^3/uL (2.7-7.7); Neutrophil % 76.9 % (47-70); Platelet Count 344 K/mm3 (150-450); RBC Distribution Width CV 13.5 % (11.6-14.6); RBC Distribution Width SD 41.8 fl (35.1-43.9); Red Blood Count 4.08 M/mm3 (4.2-5.4); White Blood Count 9.6 K/mm3 (4.4-11.0)
[2023-09-02 15:30] LABS: Glucose Challenge Gest 1H 50g 128 mg/dL (70-140)
[2023-09-02 16:11] LABS: HIV - WCH Non-Reactive (Nonreactive); Syphilis Antibodies Non-reactive
== END | disposition home or self-care (01) ==
LOC: LAB 14:41
PROVIDERS: Referring Provider Obstetrics & Gynecology; Visit Provider Registered Nurse
DX: Z34.90 Encounter for supervision of normal pregnancy, unspecified, unspecified trimester (principal); Z3A.00 Weeks of gestation of pregnancy not specified
CPT/HCPCS: 36415; 82950; 85025; 86703; 86780; 86850; 86900; 86901

== ENCOUNTER → 2023-10-21 | Outpatient (CLI) | payer MEDICAID, SELFPAY ==
--- NOTE | 2023-10-21 13:11 | US_ITS ---
STUDY: SECOND AND THIRD TRIMESTER OBSTETRICAL ULTRASOUND - LIMITED REASON FOR EXAM: Female, 28 years old growth LMP: February 16, 2023. PRIOR ULTRASOUND: Comparison is made with prior study April 11, 2023. TECHNIQUE: Transabdominal TECHNICAL QUALITY: Adequate. FINDINGS: There is a single intrauterine fetus. The fetus is in a cephalic presentation. There is demonstrated cardiac activity with a heart rate of 138 bpm. There is a normal amniotic fluid volume. The largest amniotic fluid pocket measures 6.6 cm. The amniotic fluid index (CESARIO) is 17.4 cm. The placenta is anterior in location and is not low lying. There are Grade 1 placental changes. The cervical length was not measured due to head position. BIOMETRY: BPD: 8.64 cm: 34 weeks, 6 days HC: 31.98 cm: 36 weeks, 0 days AC: 31.34 cm: 35 weeks, 2 days FL: 6.68 cm: 34 weeks, 3 days Age by LMP: 35 weeks, 2 days. JADEN by LMP: November 23, 2023. age by prior US: 35 weeks, 4 days. JADEN by prior US: November 21, 2023. age by current US: 35 weeks, 3 days. JADEN by current US: November 22, 2023. Estimated weight: 2586 grams, +/- 388 grams, 42 percentile. US/OB Limited With Biometrics IMPRESSION: Single live intrauterine gestation with a mean gestational age of 35 weeks and 4 days. The measurements obtained today fall within normal expected range. Electronically Signed: Mike Pereira MD at 15:47 EST ,
--- OUTSIDE RECORDS SUMMARY | 2023-10-21 14:08 | XMS RPT_ITS | CCD ---
Author Name Unknown Address [address] [place] [address] Organization [facility] Care Team Providers Care Clerical Adjudicator Name Role Phone LO LOIUS Unavailable Unavailable MARY LOPEZ Unavailable Unavailable PROVIDER, UNKNOWN Unavailable Unavailable No, PCP Unavailable Unavailable HARDIK BERNARD Admitting Unavailable HARDIK BERNARD Attending Unavailable HARDIK BERNARD Primary Care Unavailable CHAPO ALVES Admitting Unavailable CHAPO ALVES Attending Unavailable CHAPO ALVES Primary Care Unavailable Unavailable Primary Care Provider Unavailmarino e Unavailable Primary Care Provider UnavailDARSHAN Cordero Referring Unavailable ELYSSA LIVINGSTON Attending Unavailable NO PRIMARY CAREMD Primary Care Unavailable SARAH TOBIAS Referring Unavailable NO PRIMARY CARE, Primary Care Unavailable SARAH TOBIAS Attending Unavailable RENE MASTERS Referring Unavailabl e NO PRIMARY CARE, Primary Care Unavailable GRACE TOBIAS Attending Unavailable RENE MASTERS Referring Unavailabl e RENE MASTERS Referring Unavailabl e NO PRIMARY CARE, Primary Care Unavailable SARAH TOBIAS F Attending Unavailable RENE MASTERS Referring Unavailabl e NO PRIMARY CARE, Primary Care Unavailable SARAH TOBIAS Attending Unavailable Allergies Allergy Classification Reported Allergen(s) Allergy Type Date of Onset Reaction(s) Facility (5 sources) diphenhydrAMINE; Translations: [DIPHENHYDRAMINE] Drug Allergy 9 Mental Status Change [facility] (4 sources) Bees; Translations: [BEES] Propensity to adverse reactions 6 Swelling [facility] (3 sources) Environmental [Other] Propensity to adverse reactions 6 [facility] Work Phone: (1 source) OTHER; Translations: [OTHER] Propensity to adverse reactions (disorder) 6 [facility] Repository (1 source) bee venom; Translations: [BEE VENOM] Propensity to adverse reactions to drug (disorder) 4 [facility] Repository Medications Current Medications Medication Drug Class(es) Dates Sig (Normalized) Sig (Original) doxycycline hyclate 100 mg oral tablet (1 source) Tetracycline-clas s Drug Start: 11-10-2022 End: 11-17-2022 take 1 tablet by mouth twice daily doxycycline (VIBRA-TABS) 100 mg tablet Take 1 tablet by mouth twice daily for 7 days. 14 tablet 0 11/10/2022 11/17/2022 Active Completed/Discontinued Medications Medication Drug Class(es) Dates Sig (Normalized) Sig (Original) [id number] 200 actuat albuterol 0.09 mg/actuat metered dose inhaler (8 sources) beta2-Adrenergic Agonist Start: 11-10-2022 take 2 puff(s) by inhalation every six hours as needed albuterol HFA (PROAIR HFA) 90 mcg/actuation inhaler Inhale 2 Puffs as instructed every 6 hours as needed. 18 g 0 11/10/2022 Active Problems Active Problems Problem Classification Problem Date Documented Date Episodic/Chronic Anxiety disorders (3 sources) Posttraumatic stress disorder; Translations: [Post-traumatic stress disorder, unspecified] Onset: 10-11-2016 10-11-2016 Chronic Chronic obstructive pulmonary disease and bronchiectasis (5 sources) Emphysema, unspecified; Translations: [Pulmonary emphysema] Onset: 10-11-2016 10-11-2016 Chronic Disorders of teeth and jaw (1 source) Toothache; Translations: [Other specified disorders of teeth and supporting structures] Episodic Immunizations and screening for infectious disease (2 sources) Encounter for observation for suspected exposure to other biological agents ruled out; Translations: [Suspected disease caused by 2018-nCoV] Onset: 06-25-2020 Episodic Menstrual disorders (3 sources) Menorrhagia; Translations: [Excessive and frequent menstruation with regular cycle] Onset: 10-14-2011 10-14-2011 Chronic Mood disorders (2 sources) Major depressive disorder, recurrent severe without psychotic features; Translations: [Major depressv disorder, recurrent severe w/o psych features] Onset: 07-30-2017 Chronic Other lower respiratory disease (2 sources) Cough; Translations: [Cough] Onset: 06-25-2020 Episodic Other lower respiratory disease (1 source) Cough; Translations: [Acute cough] Episodic Other nervous system disorders (3 sources) Circadian rhythm sleep disorder of shift work type; Translations: [Circadian rhythm sleep disorder, shift work type] Onset: 12-15-2016 12-15-2016 Chronic Other nutritional; endocrine; and metabolic disorders (3 sources) Obesity; Translations: [Obesity, unspecified] Onset: 01-28-2006 01-28-2006 Chronic Other upper respiratory infections (1 source) Chronic sinusitis; Translations: [Chronic sinusitis, unspecified] Chronic Other upper respiratory infections (1 source) Pharyngitis; Translations: [Acute pharyngitis, unspecified] Episodic Personality disorders (3 sources) Borderline personality disorder; Translations: [Borderline personality disorder] Onset: 10-11-2016 10-11-2016 Chronic Residual codes; unclassified (3 sources) Hypersomnia; Translations: [Hypersomnia, unspecified] Onset: 11-10-2016 11-10-2016 Chronic Unclassified (1 source) Acute cough; Translations: [Acute cough] Onset: 11-10-2022 Past or Other Problems Problem Classification Problem Date Documented Da te Episodic/Chronic Other injuries and conditions due to external causes (3 sources) H/O: deliberate self harm; Translations: [H/O self-harm] Onset: 10-11-2016 10-11-2016 Episodic Viral infection (3 sources) Lesion of skin and/or skin-associated mucous membrane; Translations: [Anogenital (venereal) warts] Onset: 10-11-2016 10-11-2016 Episodic Results Test Name Value Interpretation Reference Range Facil ity Vital Signs Date Time Vital Sign Value Performing Clinician Maki monahan 11-10-2022 12:00-0400 Body temperature 97.59 [degF] Darshan Muhammad APRN.CNP Work Phone: [facility] 11-10-2022 12:00-0400 Body weight 105.69 kg Darshan Muhammad APRN.CNP Work Phone: [facility] 11-10-2022 12:00-0400 Diastolic blood pressure 68 mm[Hg] Darshan Muhammad APRN.CNP Work Phone: [facility] 11-10-2022 12:00-0400 Heart rate 102 /min Darshan Sabina NURSE COORDINATOR.ACCOUNT EXECUTIVE TRAINEE Work Phone: [facility] 11-10-2022 12:00-0400 Respiratory rate 16 /min Darshan Muhammad NURSE COORDINATOR.ACCOUNT EXECUTIVE TRAINEE Work Phone: [facility] 11-10-2022 12:00-0400 SaO2% (BldA) [Mass fraction] 99 % Darshan Muhammad NURSE COORDINATOR.ACCOUNT EXECUTIVE TRAINEE Work Phone: [facility] 11-10-2022 12:00-0400 Systolic blood pressure 118 mm[Hg] Darshan Muhammad NURSE COORDINATOR.ACCOUNT EXECUTIVE TRAINEE Work Phone: [facility] 06-22-2022 11:59-0400 Body temperature 99 [degF] Otoniel Camejo NURSE COORDINATOR.ACCOUNT EXECUTIVE TRAINEE Work Phone: [facility] 06-22-2022 11:59-0400 Body weight 106.87 kg Otoniel Camejo NURSE COORDINATOR.ACCOUNT EXECUTIVE TRAINEE Work Phone: [facility] 06-22-2022 11:59-0400 Diastolic blood pressure 78 mm[Hg] Otoniel Camejo NURSE COORDINATOR.ACCOUNT EXECUTIVE TRAINEE Work Phone: [facility] 06-22-2022 11:59-0400 Heart rate 100 /min Otoniel Camejo NURSE COORDINATOR.ACCOUNT EXECUTIVE TRAINEE Work Phone: [facility] 06-22-2022 11:59-0400 Respiratory rate 16 /min Otoniel Camejo NURSE COORDINATOR.ACCOUNT EXECUTIVE TRAINEE Work Phone: [facility] 06-22-2022 11:59-0400 SaO2% (BldA) [Mass fraction] 98 % Otoniel Camejo NURSE COORDINATOR.ACCOUNT EXECUTIVE TRAINEE Work Phone: [facility] 06-22-2022 11:59-0400 Systolic blood pressure 128 mm[Hg] Otoniel Camejo NURSE COORDINATOR.ACCOUNT EXECUTIVE TRAINEE Work Phone: [facility] Encounters Encounter Date Encounter Type Care Provider Facility Start: 08-26-2023 End: 08-26-2023 ambulatory ELYSSA A LIVINGSTON [facility] Start: 07-26-2023 End: 07-26-2023 ambulatory NO PRIMARY CARE [facility] Start: 07-12-2023 End: 07-12-2023 ambulatory NO PRIMARY CARE [facility] Start: 06-30-2023 End: 06-30-2023 ambulatory RENE Orozco SONAM [facility] Start: 06-14-2023 End: 06-14-2023 ambulatory [facility] Start: 03-15-2023 Telephone encounter No Pcp BIB [facility] [place] Procedures Date Procedure Procedure Detail Performing Clinician Start: 11-10-2022 STREP A MOLECULAR (POC) Darshan Muhammad APRN.ACCOUNT EXECUTIVE TRAINEE Work Phone: Plan of Treatment Date Care Activity Detail Author Start: 07-14-2026 Urine microalbumin profile DTAP,TDAP,TD (7 - Td or Tdap) [facility] Start: 04-22-2023 Influenza vaccination INFLUENZA (#1) [facility] Start: 11-10-2022 End: 11-24-2022 Influenza virus A and B RNA and SARS-CoV-2 (COVID-19) N gene panel - Respiratory specimen by JOCELYN with probe detection COVID WITH FLUA+B, ROUTINE Microbiology Routine Acute cough Suspected COVID-19 virus infection Expected: 11/10/2022, Expires: 11/24/2022 [facility] Work Phone: Immunizations Immunization Date Immunization Notes Care Provider Luis bishop 07-14-2016 tetanus toxoid, redu endy diphtheria toxoid, and acellular pertussis vaccine, adsorbed Otoniel Camejo NURSE COORDINATOR.ACCOUNT EXECUTIVE TRAINEE Work Phone: [facility] 12-16-1998 diphtheria, tetanus toxoids and acellular pertussis vaccine Otoniel Camejo NURSE COORDINATOR.ACCOUNT EXECUTIVE TRAINEE Work Phone: [facility] Work Phone: 12-16-1998 measles, mumps and rubella virus vaccine Otoniel Camejo NURSE COORDINATOR.ACCOUNT EXECUTIVE TRAINEE Work Phone: [facility] Work Phone: 12-16-1998 poliovirus vaccine, inactivated Otoniel Camejo NURSE COORDINATOR.ACCOUNT EXECUTIVE TRAINEE Work Phone: [facility] Work Phone: 12-16-1998 varicella virus vaccine Greg Camejo NURSE COORDINATOR.ACCOUNT EXECUTIVE TRAINEE Work Phone: [facility] Work Phone: 07-25-1995 diphtheria, tetanus toxoids and acellular pertussis vaccine Otoniel Camejo NURSE COORDINATOR.ACCOUNT EXECUTIVE TRAINEE Work Phone: [facility] Work Phone: 07-25-1995 measles, mumps and rubella virus vaccine Otoniel Camejo NURSE COORDINATOR.ACCOUNT EXECUTIVE TRAINEE Work Phone: [facility] Work Phone: 1994 diphtheria, tetanus toxoids and acellular pertussis vaccine Otoniel Camejo NURSE COORDINATOR.ACCOUNT EXECUTIVE TRAINEE Work Phone: [facility] Work Phone: 1994 haemophilus influenz ae type b vaccine, HbOC conjugate Otoniel Camejo NURSE COORDINATOR.ACCOUNT EXECUTIVE TRAINEE Work Phone: [facility] Work Phone: 1994 hepatitis B vaccine, pediatric or pediatric/adolescent dosage Otoniel Camejo NURSE COORDINATOR.ACCOUNT EXECUTIVE TRAINEE Work Phone: [facility] Work Phone: 1994 poliovirus vaccine, inactivated Otoniel Camejo NURSE COORDINATOR.ACCOUNT EXECUTIVE TRAINEE Work Phone: [facility] Work Phone: 1994 diphtheria, tetanus toxoids and acellular pertussis vaccine Otoniel Camejo NURSE COORDINATOR.ACCOUNT EXECUTIVE TRAINEE Work Phone: [facility] Work Phone: 1994 haemophilus influenz ae type b vaccine, HbOC conjugate Otoniel Camejo NURSE COORDINATOR.ACCOUNT EXECUTIVE TRAINEE Work Phone: [facility] Work Phone: 1994 poliovirus vaccine, inactivated Otoniel Camejo NURSE COORDINATOR.ACCOUNT EXECUTIVE TRAINEE Work Phone: [facility] Work Phone: 1994 diphtheria, tetanus toxoids and acellular pertussis vaccine Otoniel Camejo APRN.ACCOUNT EXECUTIVE TRAINEE Work Phone: [facility] Work Phone: 1994 haemophilus influenz ae type b vaccine, HbOC conjugate Otoniel Camejo APRN.ACCOUNT EXECUTIVE TRAINEE Work Phone: [facility] Work Phone: 1994 poliovirus vaccine, inactivated Otonielmacey Camejo APRN.ACCOUNT EXECUTIVE TRAINEE Work Phone: [facility] Work Phone: 1994 hepatitis B vaccine, pediatric or pediatric/adolescent dosage Otoniel Camejo APRN.ACCOUNT EXECUTIVE TRAINEE Work Phone: [facility] Work Phone: 1994 hepatitis B vaccine, pediatric or pediatric/adolescent dosage Otoniel Camejo APRN.ACCOUNT EXECUTIVE TRAINEE Work Phone: [facility] Work Phone: Payers Date Payer Category Payer Medicaid [id number] 2021 Medicaid [id number] 1994 Unknown [id number] 1994 Unknown [id number] 1994 Unknown [id number] [id number]. [id number] 1994 Unknown [id number] [id number]. [id number] 1994 Unknown [id number] [id number]. [id number] 1994 Unknown [id number] 2.16. [id number] 1994 Unknown [id number] [id number]. [id number] Unknown Unknown [id number] Unknown [id number] Social History Date Type Detail Facility Start: 06-22-2022 Tobacco smoking stat us NHIS Ex-smoker [facility] History of tobacco use Current smoker [facility] History of tobacco use Cigarette Smoker [facility] Start: 06-22-2022 End: 03-15-2023 Cigarettes smoked current (pack per day) - Reported 1 [facility] Start: 06-22-2022 Tobacco use and exposure User of smokeless tobacco [facility] Start: 06-22-2022 End: 01-31-2023 Alcohol intake Current non-drinker of alcohol (finding) [facility] Start: 06-22-2022 Tobacco Comment vape [facility] Start: 1995 Sex Assigned At Not on file [facility] Start: 06-12-2022 End: 06-22-2022 Exposure to SARS-CoV-2 (event) Not sure [facility] Start: 01-31-2023 End: 03-15-2023 Tobacco use panel [facility] National Score (1-10 0), lower number is lower risk 72 [facility] Clinical Notes 12-16-2005 to 03-17-2023 Telephone Encounter - Glendy Cisse LPN - 03/17/2023 11:47 AM EDTTelephone Encounter - Bertha Carmen Ma - 03/17/2023 10:33 AM EDTTelephone Encounter - Glendy Cisse LPN - 03/15/2023 8:46 AM EDT Note Date & Type Note Facility 03-17-2023 Miscellaneous Notes Formattin g of this note might be different from the original. Patient no-showed her appointment. Did patient no show her appt? Can this encounter be closed? Bertha Carmen Ma Phoned patient to follow up on reason for today's visit-lists emphysema and pathology on visit notes. Patient is not established and would need to Est care before these could be addressed. Message left for her to return call and advise. documented in this encounter [facility] 01-31-2023 Note HNO ID: [id number] Author: Sandy Jerez APRN.ACCOUNT EXECUTIVE TRAINEE Service: ? Author Type: Nurse Practitioner Type: Progress Notes Filed: 01/31/2023 6:16 PM Note Text: Female with complaints of 6 out of 10 back abdominal and vaginal pain. Patient says she had a LEEP procedure done 10 days ago as well as an IUD placed. 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 Patient says she had 1 come out and cause a significant amount of damage last time. At this time due to the amount of pain the patient is in and recent procedure patient is being sent to the emergency room for an evaluation. [facility] 11-10-2022 Note HNO ID: [id number] Author: RT Lyssa(R) Service: ? Author Type: Coil Taper Type: Progress Notes Filed: 11/10/2022 12:26 PM Note Text: Radiology Service Progress Note PATIENT NAME: Tanesha Rodriguez DATE OF SERVICE: November 10, 2022 TIME: 12:15 PM PATIENT IDENTITY VERIFICATION COMPLETED USING TWO (2) IDENTIFIERS: Name and Date of confirmed by patient verbally. FALL SCREENING: Has the patient had 2 falls in the last year or 1 fall with injury or currently using an Ambulatory Assistive Device (Walker, Cane, Wheelchair, Crutches, etc.)? No PATIENT GENDER DATA: Female. status: : No status: NO. PATIENT RELEVANT IMPLANT DATA REVIEWED: Yes RADIOLOGY DEPARTMENT: General X-ray: Exam(s) Completed: Chest X-Ray PERIPHERAL IV DATA: Not applicable SIGNED BY: RT Lyssa(R) November 10, 2022 12:15 PM [facility] 11-10-2022 Note HNO ID: [id number] Author: Darshan Muhammad APRN.ACCOUNT EXECUTIVE TRAINEE Service: ? Author Type: Nurse Practitioner Type: Progress Notes Filed: 11/10/2022 12:44 PM Note Text: Subjective HPI Nontoxic-appearing female presents urgent care chief complaint cough sore throat chest congestion. Duration of symptoms 2 weeks. Associated symptoms listed above. Patient states sinus pressure has worsened recently. Has not used any OTC medications. States cough is bothersome at night. History of emphysema. No known sick contacts. Denies any fever body aches chills productive cough chest pain shortness of breath pleuritic pain hemoptysis nausea vomiting abdominal pain change in bowel or bladder habits. Past medical history prescription medication use and allergies reviewed. 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 albuterol HFA (PROVENTIL HFA, VENTOLIN HFA) 90 mcg/actuation inhaler Inhale 2 Puffs as instructed every 4 hours as needed. (Patient not taking: Reported on 06/22/2022) Ipratropium (ATROVENT) 17 mcg/actuation inhaler Inhale 2 Puffs as instructed every 6 hours. (Patient not taking: Reported on 06/22/2022) guaiFENesin (MUCINEX) 600 mg 12 hr tablet Take 2 tablets by mouth twice daily. (Patient not taking: Reported on 11/10/2022) oxymetazoline (AFRIN, OXYMETAZOLINE,) 0.05 % nasal spray Use 2 Sprays in the nose twice daily. (Patient not taking: Reported on 06/22/2022) venlafaxine XR (EFFEXOR XR) 150 mg 24 hr capsule Take 1 capsule by mouth once daily. (Patient not taking: Reported on 06/20/2019 ) diclofenac sodium (VOLTAREN) 1 % topical gel Apply 2 g to affected area four times daily. (Patient not taking: Reported on 06/20/2019 ) imiquimod (ALDARA) 5 % cream apply at bedtime 3x weekly, wipe off cream in morning with soap and water, apply for up to 16 weeks (Patient not taking: Reported on 06/20/2019 ) gabapentin (NEURONTIN) 300 mg capsule Take 1 capsule by mouth three times daily. (Patient not taking: Reported on 06/20/2019 ) albuterol HFA (PROVENTIL HFA, VENTOLIN HFA) 90 mcg/actuation inhaler Inhale 2 Puffs as instructed every 4 hours as needed. (Patient not taking: Reported on 06/20/2019 ) Lidocaine HCl 3 % crea Apply 1 application to affected area as needed. (Patient not taking: Reported on 06/20/2019 ) ibuprofen (MOTRIN) 600 mg tablet Take 1 tablet by mouth every 6 hours as needed. (Patient not taking: Reported on 06/20/2019 ) silver sulfADIAZINE (SILVADENE) 1 % cream Apply 1 application to affected area once daily. (Patient not taking: Reported on 06/20/2019 ) mometasone-formoterol (DULERA) 100-5 mcg/actuation inhaler Inhale 2 Puffs as instructed twice daily. (Patient not taking: Reported on 06/20/2019 ) naproxen (NAPROSYN) 500 mg tablet Take 1 tablet by mouth twice daily as needed (pain/inflammation, take with food.). (Patient not taking: Reported on 06/20/2019 ) FAMILY HISTORY Problem Relation Age of Onset Hypertension Mother Arthritis Mother other (Depression) Mother Asthma Father Emphysema Father Cancer Father lung Arthritis Father Alzheimer's Disease Paternal Grandmother Diabetes Paternal Grandfather Diabetes Maternal Grandmother Osteoporosis Maternal Grandmother Arthritis Maternal Grandmother Diabetes Maternal Grandfather Heart Maternal Grandfather Hypertension Maternal Grandfather Arthritis Maternal Grandfather other (Kidney Disease) Maternal Grandfather Social History Tobacco Use Smoking status: Former Packs/day: 1.00 Years: 4.00 Pack years: 4.00 Types: Cigarettes Smokeless tobacco: Current Tobacco comments: vape Substance Use Topics Alcohol use: No Drug use: Yes Types: Marijuana Comment: Medical card BP 118/68 Pulse 102 Temp 36.4 ?C (97.6 ?F) Resp 16 Wt 105.7 kg (233 lb) LMP 04/23/2022 SpO2 99% BMI 40.95 kg/m? Review of Systems Constitutional: Negative for chills, fever and malaise/fatigue. HENT: Positive for congestion, sinus pain and sore throat. Negative for ear discharge and ear pain. Eyes: Negative for blurred vision, pain, discharge and redness. Respiratory: Positive for cough. Negative for hemoptysis, sputum production, shortness of breath, wheezing and stridor. Cardiovascular: Negative for chest pain. Gastrointestinal: Negative for abdominal pain, diarrhea, nausea and vomit (more content not included)... [facility] 11-10-2022 Instructions Darshan Muhammad APRN.[facility] - 11/10/2022 12:14 PM EDT How to Manage Common Symptoms Associated with COVID for Adults Fever- Fever is a temperature over 100.4 F and can occur when the body is fighting an infection. To help treat a fever: Drink plenty of fluids and stay well hydrated. Eat small amounts of easy to digest food. Rest. Your body needs rest to recover, but getting up and moving around the house frequently is a good idea. You should try to continue doing your normal daily activities (bathing, toileting, grooming, cooking), though you will probably feel tired, and need to rest often. Avoid any heavy activity or exercise, as this will increase your body temperature. Dress in light clothing and stay covered in a light sheet. Keep the room temperature cool. Take a slightly warm (not cold or cool) bath, or apply damp washcloths to the forehead and wrists. Cough- Cough is a common symptom associated with COVID and can be bothersome. To help treat a cough: Stay well hydrated. Try warm water or tea with lemon and/or honey to help soothe the cough. Use a humidifier to add moisture to the air. Try a product with menthol, like a cough drop or a rub for your chest such as Vicks, which can help reduce cough. Try cough drops. Avoid smoking and other strong odors or perfumes. Try breathing exercises to keep your lungs open and clear. Take a big deep breath through your nose and hold for 5 seconds before slowly releasing. Repeat frequently, while you are awake. Congestion- Runny nose or nasal congestion can occur with COVID. Treatment can help relieve symptoms: Try OTC nasal saline spray, or nasal saline rinse to relieve mucus congestion. Nasal strips can help keep nasal passages open, to increase airflow. Elevating your head with an extra pillow in bed can help reduce congestion. Using a humidifier can increase moisture in the air, and make breathing easier. Sore Throat- Another common symptom with COVID, can be managed at home by: Stay well hydrated. Gargle with salt water - mix teaspoon salt with 1 cup of warm water and gargle. This helps to loosen mucus in the back of the throat and may reduce discomfort. Try ice chips, popsicles or lozenges to soothe the throat. Nausea/Vomiting/Diarrhea- These are common symptoms, and staying hydrated is most important. If you are nauseous or vomiting, start with small sips of water every 10-15 minutes and increase as tolerated. You can try sucking an ice cube too. If tolerating, you can try pedialyte or Gatorade, or flat sprite or shorty-ankita. Start slowly and increase as you are able to. Instead of meals, try smaller, more frequent snacks. Try eating bland foods like crackers, toast, rice, and applesauce. Avoid spicy, greasy or fried foods and dairy containing foods. Even if you aren't feeling hungry due to lack of smell or taste, it is important to try to take in some food when you are able. After drinking and eating, rest in an upright position for up to two hours as needed to help decrease nauseous feelings. Try closing your eyes, avoid moving and watching TV. Avoid strong odors that can make you feel more nauseated. When to seek emergency medical attention Look for emergency warning signs for COVID-19. If having any of these symptoms, seek emergency medical care immediately: Trouble breathing Persistent pain or pressure in the chest New confusion Inability to wake or stay awake Bluish lips or face *This list is not all possible symptoms. Please call your medical provider for any other symptoms that are severe or concerning to you. documented in this encounter [facility] 11-10-2022 History of Presen t illness Narrative Subjective HPI Nontoxic-appearing female presents urgent care chief complaint cough sore throat chest congestion. Duration of symptoms 2 weeks. Associated symptoms listed above. Patient states sinus pressure has worsened recently. Has not used any OTC medications. States cough is bothersome at night. History of emphysema. No known sick contacts. Denies any fever body aches chills productive cough chest pain shortness of breath pleuritic pain hemoptysis nausea vomiting abdominal pain change in bowel or bladder habits. Past medical history prescription medication use and allergies reviewed. .Patient presents with: Chest Congestion: cough and sore throat x 2-3 weeks PAST MEDICAL HISTORY Diagnosis Date Condyloma Convergence insufficiency COPD (chronic obstructive pulmonary disease) with emphysema (HCC) Menorrhagia 10/14/2011 Obesity, unspecified PMH - PAST MEDICAL HISTORY OF febrile seizure PAST SURGICAL HISTORY Procedure Laterality Date ADENOIDECTOMY PRIMARY <AGE 11 01/20 Adenoidectomy CO2 LASER vulvar condyloma COLONOSCOPY 2012 W/ EGD TONSILLECTOMY PRIMARY/SECONDARY <AGE 11 01/20 Tonsillectomy ALLERGIES Bees, Benedryl [Diphenhydramine], and Environmental [Other] MEDICATIONS MULTIVITAMIN ORAL Take by mouth once daily. albuterol HFA (PROVENTIL HFA, VENTOLIN HFA) 90 mcg/actuation inhaler Inhale 2 Puffs as instructed every 4 hours as needed. (Patient not taking: Reported on 06/22/2022) Ipratropium (ATROVENT) 17 mcg/actuation inhaler Inhale 2 Puffs as instructed every 6 hours. (Patient not taking: Reported on 06/22/2022) guaiFENesin (MUCINEX) 600 mg 12 hr tablet Take 2 tablets by mouth twice daily. (Patient not taking: Reported on 11/10/2022) oxymetazoline (AFRIN, OXYMETAZOLINE,) 0.05 % nasal spray Use 2 Sprays in the nose twice daily. (Patient not taking: Reported on 06/22/2022) venlafaxine XR (EFFEXOR XR) 150 mg 24 hr capsule Take 1 capsule by mouth once daily. (Patient not taking: Reported on 06/20/2019 ) diclofenac sodium (VOLTAREN) 1 % topical gel Apply 2 g to affected area four times daily. (Patient not taking: Reported on 06/20/2019 ) imiquimod (ALDARA) 5 % cream apply at bedtime 3x weekly, wipe off cream in morning with soap and water, apply for up to 16 weeks (Patient not taking: Reported on 06/20/2019 ) gabapentin (NEURONTIN) 300 mg capsule Take 1 capsule by mouth three times daily. (Patient not taking: Reported on 06/20/2019 ) albuterol HFA (PROVENTIL HFA, VENTOLIN HFA) 90 mcg/actuation inhaler Inhale 2 Puffs as instructed every 4 hours as needed. (Patient not taking: Reported on 06/20/2019 ) Lidocaine HCl 3 % crea Apply 1 application to affected area as needed. (Patient not taking: Reported on 06/20/2019 ) ibuprofen (MOTRIN) 600 mg tablet Take 1 tablet by mouth every 6 hours as needed. (Patient not taking: Reported on 06/20/2019 ) silver sulfADIAZINE (SILVADENE) 1 % cream Apply 1 application to affected area once daily. (Patient not taking: Reported on 06/20/2019 ) mometasone-formoterol (DULERA) 100-5 mcg/actuation inhaler Inhale 2 Puffs as instructed twice daily. (Patient not taking: Reported on 06/20/2019 ) naproxen (NAPROSYN) 500 mg tablet Take 1 tablet by mouth twice daily as needed (pain/inflammation, take with food.). (Patient not taking: Reported on 06/20/2019 ) FAMILY HISTORY Problem Relation Age of Onset Hypertension Mother Arthritis Mother other (Depression) Mother Asthma Father Emphysema Father Cancer Father lung Arthritis Father Alzheimer's Disease Paternal Grandmother Diabetes Paternal Grandfather Diabetes Maternal Grandmother Osteoporosis Maternal Grandmother Arthritis Maternal Grandmother Diabetes Maternal Grandfather Heart Maternal Grandfather Hypertension Maternal Grandfather Arthritis Maternal Grandfather other (Kidney Disease) Maternal Grandfather Social History Tobacco Use Smoking status: Former Packs/day: 1.00 Years: 4.00 Pack years: 4.00 Types: Cigarettes Smokeless tobacco: Current Tobacco comments: vape Substance Use Topics Alcohol use: No Drug use: Yes Types: Marijuana Comment: Medical card BP 118/68 Pulse 102 Temp 36.4 C (97.6 F) Resp 16 Wt 105.7 kg (233 lb) LMP 04/23/2022 SpO2 99% BMI 40.95 kg/m Review of Systems Constitutional: Negative for chills, fever and malaise/fatigue. HENT: Positive for congestion, sinus pain and sore throat. Negative for ear discharge and ear pain. Eyes: Negative for blurred vision, pain, discharge and redness. Respiratory: Positive for cough. Negative for hemoptysis, sputum production, shortness of breath, wheezing and stridor. Cardiovascular: Negative for chest pain. Gastrointestinal: Negative for abdominal pain, diarrhea, nausea and vomiting. Musculoskeletal: Negative for myalgias. Skin: Negative for itching and rash. Neurological: Negative for dizziness and headaches. Objective Physical Exam Constitutional: General: She is not in acute distress. Appearance: She is not diaphoretic. HENT: Head: Normocephalic. Jaw: No trismus. Nose: Congestion present. Right Sinus: Maxillary sinus tenderness present. Left Sinus: Maxillary sinus tenderness present. Mouth/Throat: Lips: [place]. Mouth: Mucous membranes are moist. Pharynx: Oropharynx is clear. Uvula midline. Posterior oropharyngeal erythema present. No pharyngeal swelling, oropharyngeal exudate or uvula swelling. Eyes: Conjunctiva/sclera: Conjunctivae normal. Pupils: Pupils are equal, round, and reactive to light. Cardiovascular: Rate and Rhythm: Normal rate and regular rhythm. Heart sounds: Normal heart sounds. Pulmonary: Effort: Pulmonary effort is normal. No tachypnea, accessory muscle usage or respiratory distress. Breath sounds: No stridor. No wheezing, rhonchi or rales. Abdominal: Palpations: Abdomen is soft. Tenderness: There is no abdominal tenderness. There is no guarding or rebound. Musculoskeletal: Cervical back: Normal range of motion and neck supple. No rigidity or tenderness. Lymphadenopathy: Cervical: No cervical adenopathy. Skin: General: Skin is warm and dry. Neurological: Mental Status: She is alert and oriented to person, place, and time. ASSESSMENT/PLAN: 1. Acute cough - ICD9: 786.2, ICD10: R05.1 (primary diagnosis) - XR CHEST 2V FRONTAL/LAT - COVID WITH FLUA+B, ROUTINE 2. Suspected COVID-19 virus infection - ICD9: V01.79, ICD10: Z20.822 - COVID WITH FLUA+B, ROUTINE 3. Pharyngitis, unspecified etiology - ICD9: 462, ICD10: J02.9 - STREP A MOLECULAR (POC) 4. Sinobronchitis - ICD9: 473.9, 490, ICD10: J32.9, J40 IMPRESSION: No acute radiographic abnormality. Strep test negative. COVID-19 and flu test pending. Duration is cough sinus pressure placed on doxycycline and albuterol sent to pharmacy. Will be established with PCP today. Patient was educated on supportive therapies. Patient will follow up with primary care provider as needed. Patient was instructed to immediately proceed to emergency room for any new, worsening, or symptoms lasting longer than anticipated. The patient's clinical presentation is otherwise unremarkable at this time. Based on exam and clinical finding, the patient is stable for discharge. Plan of care was discussed with patient. Patient verbalizes understanding and agrees to plan of care. This note was generated using [employer] software. It may contain errors in wording, punctuation, or spelling. Darshan Muhammad APRN.SHABBIR documented in this encounter [facility] 06-22-2022 Note HNO ID: [id number] Author: Otoniel Camejo APRN.SHABBIR Service: ? Author Type: Nurse Practitioner Type: Progress Notes Filed: 06/22/2022 12:52 PM Note Text: Subjective HPI HPI Tanesha Rodriguez is a 27 year old female who presents today for CC of left tooth pain, bilat ear pain. This started 3 days ago. Has tried otc medication for relief. Symptoms are worsened by nothing. Risk factors hx of poor dental health. Denies possibility of being . vapes. .Patient presents with: Ear Pain: (LT) ear congestion, tooth pain x3 days. 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 penicillin V potassium (V-CILLIN, VEETIDS) 500 mg tablet Take 1 tablet by mouth four times daily for 7 days. albuterol HFA (PROVENTIL HFA, VENTOLIN HFA) 90 mcg/actuation inhaler Inhale 2 Puffs as instructed every 4 hours as needed. (Patient not taking: Reported on 06/22/2022) Ipratropium (ATROVENT) 17 mcg/actuation inhaler Inhale 2 Puffs as instructed every 6 hours. (Patient not taking: Reported on 06/22/2022) guaiFENesin (MUCINEX) 600 mg 12 hr tablet Take 2 tablets by mouth twice daily. oxymetazoline (AFRIN, OXYMETAZOLINE,) 0.05 % nasal spray Use 2 Sprays in the nose twice daily. (Patient not taking: Reported on 06/22/2022) venlafaxine XR (EFFEXOR XR) 150 mg 24 hr capsule Take 1 capsule by mouth once daily. (Patient not taking: Reported on 06/20/2019 ) diclofenac sodium (VOLTAREN) 1 % topical gel Apply 2 g to affected area four times daily. (Patient not taking: Reported on 06/20/2019 ) imiquimod (ALDARA) 5 % cream apply at bedtime 3x weekly, wipe off cream in morning with soap and water, apply for up to 16 weeks (Patient not taking: Reported on 06/20/2019 ) gabapentin (NEURONTIN) 300 mg capsule Take 1 capsule by mouth three times daily. (Patient not taking: Reported on 06/20/2019 ) albuterol HFA (PROVENTIL HFA, VENTOLIN HFA) 90 mcg/actuation inhaler Inhale 2 Puffs as instructed every 4 hours as needed. (Patient not taking: Reported on 06/20/2019 ) Lidocaine HCl 3 % crea Apply 1 application to affected area as needed. (Patient not taking: Reported on 06/20/2019 ) ibuprofen (MOTRIN) 600 mg tablet Take 1 tablet by mouth every 6 hours as needed. (Patient not taking: Reported on 06/20/2019 ) silver sulfADIAZINE (SILVADENE) 1 % cream Apply 1 application to affected area once daily. (Patient not taking: Reported on 06/20/2019 ) mometasone-formoterol (DULERA) 100-5 mcg/actuation inhaler Inhale 2 Puffs as instructed twice daily. (Patient not taking: Reported on 06/20/2019 ) naproxen (NAPROSYN) 500 mg tablet Take 1 tablet by mouth twice daily as needed (pain/inflammation, take with food.). (Patient not taking: Reported on 06/20/2019 ) FAMILY HISTORY Problem Relation Age of Onset Hypertension Mother Arthritis Mother other (Depression) Mother Asthma Father Emphysema Father Cancer Father lung Arthritis Father Alzheimer's Disease Paternal Grandmother Diabetes Paternal Grandfather Diabetes Maternal Grandmother Osteoporosis Maternal Grandmother Arthritis Maternal Grandmother Diabetes Maternal Grandfather Heart Maternal Grandfather Hypertension Maternal Grandfather Arthritis Maternal Grandfather other (Kidney Disease) Maternal Grandfather Social History Tobacco Use Smoking status: Former Packs/day: 1.00 Years: 4.00 Pack years: 4.00 Types: Cigarettes Smokeless tobacco: Current Tobacco comments: vape Substance Use Topics Alcohol use: No Drug use: Yes Types: Marijuana Comment: Medical card ROS Objective Blood pressure 128/78, pulse 100, temperature 37.2 ?C (99 ?F), resp. rate 16, weight 106.9 kg (235 lb 9.6 oz), last menstrual period 04/23/2022, SpO2 98 %. Physical Exam Constitutional: General: She is not in acute distress. Appearance: She is not toxic-appearing or diaphoretic. HENT: Head: Normocephalic and atraumatic. Right Ear: Hearing, tympanic membrane, ear canal and external ear normal. Left Ear: Hearing, tympanic membrane, ear canal and external ear normal. Mouth/Throat: Lips: [place]. Mouth: Mucous membranes are moist. Pharynx: No pharyngeal swelling, oropharyngeal exudate, posterior oropharyngeal erythema or uvula swelling. Pulmonary: Effort: Pulmonary effort is normal. No accessory muscle usage or respiratory distress. Lymphadenopathy: Cervical: No cervical adenopathy. Right cervical: No (more content not included)... [facility] 06-22-2022 History of Presen t illness Narrative Images from the original note were not included. Subjective HPI HPI Tanesha Rodriguez is a 27 year old female who presents today for CC of left tooth pain, bilat ear pain. This started 3 days ago. Has tried otc medication for relief. Symptoms are worsened by nothing. Risk factors hx of poor dental health. Denies possibility of being . vapes. .Patient presents with: Ear Pain: (LT) ear congestion, tooth pain x3 days. 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 penicillin V potassium (V-CILLIN, VEETIDS) 500 mg tablet Take 1 tablet by mouth four times daily for 7 days. albuterol HFA (PROVENTIL HFA, VENTOLIN HFA) 90 mcg/actuation inhaler Inhale 2 Puffs as instructed every 4 hours as needed. (Patient not taking: Reported on 06/22/2022) Ipratropium (ATROVENT) 17 mcg/actuation inhaler Inhale 2 Puffs as instructed every 6 hours. (Patient not taking: Reported on 06/22/2022) guaiFENesin (MUCINEX) 600 mg 12 hr tablet Take 2 tablets by mouth twice daily. oxymetazoline (AFRIN, OXYMETAZOLINE,) 0.05 % nasal spray Use 2 Sprays in the nose twice daily. (Patient not taking: Reported on 06/22/2022) venlafaxine XR (EFFEXOR XR) 150 mg 24 hr capsule Take 1 capsule by mouth once daily. (Patient not taking: Reported on 06/20/2019 ) diclofenac sodium (VOLTAREN) 1 % topical gel Apply 2 g to affected area four times daily. (Patient not taking: Reported on 06/20/2019 ) imiquimod (ALDARA) 5 % cream apply at bedtime 3x weekly, wipe off cream in morning with soap and water, apply for up to 16 weeks (Patient not taking: Reported on 06/20/2019 ) gabapentin (NEURONTIN) 300 mg capsule Take 1 capsule by mouth three times daily. (Patient not taking: Reported on 06/20/2019 ) albuterol HFA (PROVENTIL HFA, VENTOLIN HFA) 90 mcg/actuation inhaler Inhale 2 Puffs as instructed every 4 hours as needed. (Patient not taking: Reported on 06/20/2019 ) Lidocaine HCl 3 % crea Apply 1 application to affected area as needed. (Patient not taking: Reported on 06/20/2019 ) ibuprofen (MOTRIN) 600 mg tablet Take 1 tablet by mouth every 6 hours as needed. (Patient not taking: Reported on 06/20/2019 ) silver sulfADIAZINE (SILVADENE) 1 % cream Apply 1 application to affected area once daily. (Patient not taking: Reported on 06/20/2019 ) mometasone-formoterol (DULERA) 100-5 mcg/actuation inhaler Inhale 2 Puffs as instructed twice daily. (Patient not taking: Reported on 06/20/2019 ) naproxen (NAPROSYN) 500 mg tablet Take 1 tablet by mouth twice daily as needed (pain/inflammation, take with food.). (Patient not taking: Reported on 06/20/2019 ) FAMILY HISTORY Problem Relation Age of Onset Hypertension Mother Arthritis Mother other (Depression) Mother Asthma Father Emphysema Father Cancer Father lung Arthritis Father Alzheimer's Disease Paternal Grandmother Diabetes Paternal Grandfather Diabetes Maternal Grandmother Osteoporosis Maternal Grandmother Arthritis Maternal Grandmother Diabetes Maternal Grandfather Heart Maternal Grandfather Hypertension Maternal Grandfather Arthritis Maternal Grandfather other (Kidney Disease) Maternal Grandfather Social History Tobacco Use Smoking status: Former Packs/day: 1.00 Years: 4.00 Pack years: 4.00 Types: Cigarettes Smokeless tobacco: Current Tobacco comments: vape Substance Use Topics Alcohol use: No Drug use: Yes Types: Marijuana Comment: Medical card ROS Objective Blood pressure 128/78, pulse 100, temperature 37.2 C (99 F), resp. rate 16, weight 106.9 kg (235 lb 9.6 oz), last menstrual period 04/23/2022, SpO2 98 %. Physical Exam Constitutional: General: She is not in acute distress. Appearance: She is not toxic-appearing or diaphoretic. HENT: Head: Normocephalic and atraumatic. Right Ear: Hearing, tympanic membrane, ear canal and external ear normal. Left Ear: Hearing, tympanic membrane, ear canal and external ear normal. Mouth/Throat: Lips: [place]. Mouth: Mucous membranes are moist. Pharynx: No pharyngeal swelling, oropharyngeal exudate, posterior oropharyngeal erythema or uvula swelling. Pulmonary: Effort: Pulmonary effort is normal. No accessory muscle usage or respiratory distress. Lymphadenopathy: Cervical: No cervical adenopathy. Right cervical: No superficial cervical adenopathy. Left cervical: No superficial cervical adenopathy. Neurological: Mental Status: She is alert and oriented to person, place, and time. ASSESSMENT/PLAN: 1. Tooth ache - ICD9: 525.9, ICD10: K08.89 Take medication as ordered [place] dentist [place] Follow up if signs of infection worsen - PENICILLIN V POTASSIUM 500 MG TABLET Agrees to plan Otoniel Camejo APRN.SHABBIR documented in this encounter [facility] documented as of this encounter (statuses as of 06/22/2022) [facility] History of Past illness Narrative* Problem Noted Date Resolved Date Closed Colles' fracture 12/16/2005 01/29/20 documented as of this encounter (statuses as of 11/10/2022) [facility] History of Past illness Narrative* Problem Noted Date Diagnosed Date Resolved Date Closed Colles' fracture 12/16/2005 06/04/2006 documented as of this encounter (statuses as of 03/17/2023) [facility] Tooth ache- Primary [facility] Acute cough- Primary Suspected COVID-19 virus infection Pharyngitis, unspecified etiology Sinobronchitis Unspecified sinusitis (chronic) documented in this encounter [facility] Summary Purpose Family History No Family History Records FoundNo Family History Records FoundNo Family History Records FoundNo Family History Records FoundNo Family History Records FoundNo Family History Records Found Advance Directives No Advanced Directives Records FoundNo Advanced Directives Records FoundNo Advanced Directives Records FoundNo Advanced Directives Records FoundNo Advanced Directives Records FoundNo Advanced Directives Records Found Reason for Referral Specialty Diagnoses / Procedures Referred By Vickie oconnell Referred To Contact Darshan Muhammad APRN.CNP [address] [place] [address] Referral ID Status Reason Start Date Expiration Date Visits Re quested Visits Authorized [id number] Closed 1 1 Health Concerns Infection Onset Date Last Indicated Resolved Time COVID-19 Rule-Out 11/10/2022 11/10/2022 Additional Source Comments INFORMATION SOURCE (unrecogn ized section and content) DATE CREATED AUTHOR AUTHOR'S ORGANIZ ATION 09/25/2019 [facility] ([place]) DATE CREATED AUTHOR AUTHOR'S ORGANIZ ATION 06/28/2020 [facility] DATE CREATED AUTHOR AUTHOR'S ORGANIZ ATION 07/04/2020 [facility] DATE CREATED AUTHOR AUTHOR'S ORGANIZ ATION 03/18/2023 [facility] DATE CREATED AUTHOR AUTHOR'S ORGANIZ ATION 08/27/2023 [facility] Source Comments (unrecognize d section and content) In the event this informatio n is protected by the Federal Confidentiality of Alcohol and Drug Abuse Patient Records regulations: The Federal rules restrict any use of the information to criminally investigate or prosecute any alcohol or drug abuse patient.[facility] the event this information is protected by the Federal Confidentiality of Alcohol and Drug Abuse Patient Records regulations: The Federal rules restrict any use of the information to criminally investigate or prosecute any alcohol or drug abuse patient.[facility] the event this information is protected by the Federal Confidentiality of Alcohol and Drug Abuse Patient Records regulations: The Federal rules restrict any use of the information to criminally investigate or prosecute any alcohol or drug abuse patient.[facility] Reason for Visit (unrecogniz ed section and content) Reason Comments Chest Congestion cough and sore throa t x 2-3 weeks Reason Comments Appointment FOR RECORDS PERTAINING TO PATIENTS WHO ARE OR HAVE BEEN ENROLLED IN A CHEMICAL DEPENDENCY/SUBSTANCEABUSE PROGRAM, SOME INFORMATION MAY BE OMITTED. This clinical summary was aggregated from multiple sources. Caution should be exercised in using it in the provision of clinical care. This summary normalizes information from multiple sources, and as a consequence, information in this document may materially change the coding, format and clinical context of patient data. In addition, data may be omitted in some cases. CLINICAL DECISIONS SHOULD BE BASED ON THE PRIMARY CLINICAL RECORDS. [facility]. provides no warranty or guarantee of the accuracy or completeness of information in this document.
[2023-10-21 16:43] LABS: Hepatitis B Surface Antigen Non-Reactive (Nonreactive); Hepatitis C Antibody Non-Reactive (Nonreactive); Rubella IgG Reactive (Nonreactive)
== END | disposition home or self-care (01) ==
PROVIDERS: Referring Provider Obstetrics & Gynecology; Visit Provider Obstetrics & Gynecology
DX: O99.210 Obesity complicating pregnancy, unspecified trimester (principal); Z3A.00 Weeks of gestation of pregnancy not specified
CPT/HCPCS: 36415; 76816; 86762; 86803; 86850; 86900; 86901; 87340

== ENCOUNTER → 2023-10-28 | Outpatient (CLI) | payer MEDICAID, SELFPAY | END | disposition home or self-care (01) | LOC: LABSPEC 17:28 | PROVIDERS: Visit Provider Advanced Practice Midwife | DX: Z34.90 Encounter for supervision of normal pregnancy, unspecified, unspecified trimester (principal); Z3A.00 Weeks of gestation of pregnancy not specified | CPT/HCPCS: 87081 ==

== ENCOUNTER 2023-11-06 09:30 | Outpatient (CLI) | payer MEDICAID, SELFPAY ==
[2023-11-06] VITALS (10 sets, daily range): BP systolic 125–161; BP diastolic 68–97; PULSE 75–100; RESP 18; TEMP 36.4–36.6; O2SAT 68–80; BMI 47.7
--- OUTSIDE RECORDS SUMMARY | 2023-11-06 09:38 | XMS RPT_ITS | CCD ---
Author Name Unknown Address [address] [place] [address] Organization [facility] Care Team Providers Care Closing Machine Operator Name Role Phone LO LOUIS Unavailable Unavailable MARY LOPEZ Unavailable Unavailable PROVIDER, [...] [DIPHENHYDRAMINE] Drug Allergy 9 Mental Status Change [facility] (4 sources) Bees; Translations: [BEES] Propensity to adverse reactions 6 Swelling [facility] (3 sources) Environmental [Other] Propensity to adverse reactions 6 [facility] Work Phone: (1 source) OTHER; Translations: [OTHER] Propensity to adverse reactions (disorder) 6 [facility] Repository (1 source) bee venom; Translations: [BEE VENOM] Propensity to adverse reactions to drug (disorder) 4 [facility] Repository Medications Current Medications Medication Drug Class(es) [...] Drug Class(es) Dates Sig (Normalized) Sig (Original) [id number] actuat albuterol 0.09 mg/actuat metered dose [...] 97.59 [degF] Darshan Muhammad APRN.CNP Work Phone: [facility] 11-10-2022 12:00-0400 Body weight 105.69 kg Darshan Muhammad APRN.CNP Work Phone: [facility] 11-10-2022 12:00-0400 Diastolic blood pressure 68 mm[Hg] Darshan Muhammad APRN.CNP Work Phone: [facility] 11-10-2022 12:00-0400 Heart rate 102 /min Darshan Sabina SERVICE CASHIER.[employer] D[employer]LLER Work Phone: [facility] 11-10-2022 12:00-0400 Respiratory rate 16 /min Darshan Muhammad SERVICE CASHIER.[employer] DRILLER Work Phone: [facility] 11-10-2022 12:00-0400 SaO2% (BldA) [Mass fraction] 99 % Darshan Muhammad SERVICE CASHIER.[employer] D[employer] DRILLER Work Phone: [facility] 11-10-2022 12:00-0400 Systolic blood pressure 118 mm[Hg] Darshan Muhammad SERVICE CASHIER.[employer] D[employer] DRILLER Work Phone: [facility] 06-22-2022 11:59-0400 Body temperature 99 [degF] Otoniel Camejo SERVICE CASHIER.[employer] DRILLER Work Phone: [facility] 06-22-2022 11:59-0400 Body weight 106.87 kg Otoniel Camejo SERVICE CASHIER.[employer] DRILLER Work Phone: [facility] 06-22-2022 11:59-0400 Diastolic blood pressure 78 mm[Hg] Otoniel Camejo SERVICE CASHIER.DI[employer] D[employer] DRILLER Work Phone: [facility] 06-22-2022 11:59-0400 Heart rate 100 /min Otoniel Camejo SERVICE CASHIER.DI[employer] D[employer] DRILLER Work Phone: [facility] 06-22-2022 11:59-0400 Respiratory rate 16 /min Otoniel Camejo SERVICE CASHIER.DIAM[employer] D[employer] DRILLER Work Phone: [facility] 06-22-2022 11:59-0400 SaO2% (BldA) [Mass fraction] 98 % Otoniel Camejo SERVICE CASHIER.DI[employer] DRILLER Work Phone: [facility] 06-22-2022 11:59-0400 Systolic blood pressure 128 mm[Hg] Otoniel Camejo SERVICE CASHIER.[employer] D[employer] DRILLER Work Phone: [facility] Encounters Encounter Date Encounter Type Care Provider [...] 03-15-2023 Telephone encounter No Pcp BIB [facility] Procedures Date Procedure Procedure Detail Performing Clinician Start: 11-10-2022 STREP A MOLECULAR (POC) Darshan Muhammad APRN.DI[employer] D[employer] DRILLER Work Phone: Plan of Treatment Date Care Activity Detail Author Start: 07-14-2026 Urine microalbumin profile DTAP,TDAP,TD (7 - Td or Tdap) [facility] Start: 04-22-2023 Influenza vaccination INFLUENZA (#1) [facility] Start: 11-10-2022 End: 11-24-2022 Influenza virus A and B RNA and SARS-CoV-2 (COVID-19) N gene panel - Respiratory specimen by JOCELYN with probe detection COVID WITH FLUA+B, ROUTINE Microbiology Routine Acute cough Suspected COVID-19 virus infection Expected: 11/10/2022, Expires: 11/24/2022 [facility] Work Phone: Immunizations Immunization Date Immunization Notes Care Provider Luis bishop 07-14-2016 tetanus toxoid, redu endy diphtheria toxoid, and acellular pertussis vaccine, adsorbed Otoniel Camejo SERVICE CASHIER.DI[employer] DIE DRILLER Work Phone: [facility] 12-16-1998 diphtheria, tetanus toxoids and acellular pertussis vaccine Otoniel Camejo SERVICE CASHIER.DIAMOND DIE DRILLER Work Phone: [facility] Work Phone: 12-16-1998 measles, mumps and rubella virus vaccine Otoniel Camejo SERVICE CASHIER.DIAM[employer] D[employer] DRILLER Work Phone: [facility] Work Phone: 12-16-1998 poliovirus vaccine, inactivated Otoniel Camejo SERVICE CASHIER.DIAM[employer] DIE DRILLER Work Phone: [facility] Work Phone: 12-16-1998 varicella virus vaccine Greg Camejo SERVICE CASHIER.DIAM[employer] DIE DRILLER Work Phone: [facility] Work Phone: 07-25-1995 diphtheria, tetanus toxoids and acellular pertussis vaccine Otoniel Camejo SERVICE CASHIER.DI[employer] D[employer] DRILLER Work Phone: [facility] Work Phone: 07-25-1995 measles, mumps and rubella virus vaccine Otoniel Camejo SERVICE CASHIER.DIAM[employer] DIE DRILLER Work Phone: [facility] Work Phone: 1994 diphtheria, tetanus toxoids and acellular pertussis vaccine Otoniel Camejo SERVICE CASHIER.DIAMOND DIE DRILLER Work Phone: [facility] Work Phone: 1994 haemophilus influenz ae type b vaccine, HbOC conjugate Otoniel Camejo SERVICE CASHIER.DIAMOND DIE DRILLER Work Phone: [facility] Work Phone: 1994 hepatitis B vaccine, pediatric or pediatric/adolescent dosage Otoniel Camejo SERVICE CASHIER.DIAMOND DIE DRILLER Work Phone: [facility] Work Phone: 1994 poliovirus vaccine, inactivated Otoniel Camejo SERVICE CASHIER.DIAMOND DIE DRILLER Work Phone: [facility] Work Phone: 1994 diphtheria, tetanus toxoids and acellular pertussis vaccine Otoniel Camejo SERVICE CASHIER.DIAMOND DIE DRILLER Work Phone: [facility] Work Phone: 1994 haemophilus influenz ae type b vaccine, HbOC conjugate Otoniel Camejo SERVICE CASHIER.DIAMOND DIE DRILLER Work Phone: [facility] Work Phone: 1994 poliovirus vaccine, inactivated Otoniel Camejo SERVICE CASHIER.DIAMOND DIE DRILLER Work Phone: [facility] Work Phone: 1994 diphtheria, tetanus toxoids and acellular pertussis vaccine Otoniel Camejo APRN.DIAMOND DIE DRILLER Work Phone: [facility] Work Phone: 1994 haemophilus influenz ae type b vaccine, HbOC conjugate Otoniel Camjeo APRN.DIAMOND DIE DRILLER Work Phone: [facility] Work Phone: 1994 poliovirus vaccine, inactivated Otonielmacey Camejo APRN.DIAMOND DIE DRILLER Work Phone: [facility] Work Phone: 1994 hepatitis B vaccine, pediatric or pediatric/adolescent dosage Otoniel Camejo APRN.DIAMOND DIE DRILLER Work Phone: [facility] Work Phone: 1994 hepatitis B vaccine, pediatric or pediatric/adolescent dosage Otoniel Camejo APRN.DIAMOND DIE DRILLER Work Phone: [facility] Work Phone: Payers Date Payer Category Payer Medicaid [id number] 2021 Medicaid [id number] 1994 Unknown [id number] 1994 Unknown [id number] 1994 Unknown [id number] 2.16. [id number] 1994 Unknown [id number] 2.16. [id number] 1994 Unknown [id number] 2.16. [id number] 1994 Unknown [id number] 2.16. [id number] 1994 Unknown [id number] 2.16. [id number] Unknown Unknown [id number] Unknown [id number] Social History Date Type Detail Facility Start: 06-22-2022 Tobacco smoking stat us NHIS Ex-smoker [facility] History of tobacco use Current smoker [facility] History of tobacco use Cigarette Smoker [facility] Start: 06-22-2022 End: 03-15-2023 Cigarettes smoked current (pack per day) - Reported 1 [facility] Start: 06-22-2022 Tobacco use and exposure User of smokeless tobacco [facility] Start: 06-22-2022 End: 01-31-2023 Alcohol intake Current non-drinker of alcohol (finding) [facility] Start: 06-22-2022 Tobacco Comment vape [facility] Start: 1995 Sex Assigned At Not on file [facility] Start: 06-12-2022 End: 06-22-2022 Exposure to SARS-CoV-2 (event) Not sure [facility] Start: 01-31-2023 End: 03-15-2023 Tobacco use panel [facility] National Score (1-10 0), lower number is lower risk 72 [facility] Clinical Notes 12-16-2005 to 03-17-2023 Telephone Encounter [...] call and advise. documented in this encounter [facility] 01-31-2023 Note HNO ID: [id number] Author: Sandy Jerez APRN.DIAMOND DIE DRILLER Service: ? Author Type: Nurse Practitioner Type: [...] to the emergency room for an evaluation. [facility] 11-10-2022 Note HNO ID: [id number] Author: RT Lyssa(R) Service: ? Author Type: Rn Homecare Type: Progress Notes Filed: 11/10/2022 12:26 PM [...] RT Lyssa(R) November 10, 2022 12:15 PM [facility] 11-10-2022 Note HNO ID: [id number] Author: Darshan Muhammad APRN.DIAMOND DIE DRILLER Service: ? Author Type: Nurse Practitioner Type: [...] nausea and vomit (more content not included)... [facility] 11-10-2022 Instructions Darshan Muhammad APRN.[facility] - 11/10/2022 12:14 PM EDT How to [...] concerning to you. documented in this encounter [facility] 11-10-2022 History of Presen t illness Narrative [...] Sinus: Maxillary sinus tenderness present. Mouth/Throat: Lips: [place]. Mouth: Mucous membranes are moist. Pharynx: Oropharynx [...] of care. This note was generated using [employer] software. It may contain errors in wording, punctuation, or spelling. Darshan Muhammad APRN.SHABBIR documented in this encounter [facility] 06-22-2022 Note HNO ID: [id number] Author: Otoniel Camejo APRN.SHABBIR Service: ? Author [...] canal and external ear normal. Mouth/Throat: Lips: [place]. Mouth: Mucous membranes are moist. Pharynx: No pharyngeal swelling, oropharyngeal exudate, posterior oropharyngeal erythema or uvula swelling. Pulmonary: Effort: Pulmonary effort is normal. No accessory muscle usage or respiratory distress. Lymphadenopathy: Cervical: No cervical adenopathy. Right cervical: No (more content not included)... [facility] 06-22-2022 History of Presen t illness Narrative [...] canal and external ear normal. Mouth/Throat: Lips: [place]. Mouth: Mucous membranes are moist. Pharynx: No [...] Otoniel Camejo APRN.SHABBIR documented in this encounter [facility] documented as of this encounter (statuses as of 06/22/2022) [facility]04-[facility] History of Past illness Narrative* Problem Noted Date Resolved Date Closed Colles' fracture 12/16/2005 01/29/20 documented as of this encounter (statuses as of 11/10/2022) [facility]04-27-2006 History of Past illness Narrative* Problem Noted Date Diagnosed Date Resolved Date Closed Colles' fracture 12/16/2005 06/04/2006 documented as of this encounter (statuses as of 03/17/2023) [facility] Tooth [facility]- Primary [facility] Acute cough- Primary Suspected COVID-19 virus infection Pharyngitis, unspecified etiology Sinobronchitis Unspecified sinusitis (chronic) documented in this encounter [facility] Summary Purpose Family History No Family History [...] Contact Darshan Muhammad APRN.CNP [address] [place] [address] Referral ID Status Reason Start Date Expiration Date Visits Re quested Visits Authorized [id number] Closed 1 1 Health Concerns Infection Onset Date Last Indicated Resolved Time COVID-19 Rule-Out 11/10/2022 11/10/2022 Additional Source Comments INFORMATION SOURCE (unrecogn ized section and content) DATE CREATED AUTHOR AUTHOR'S ORGANIZ ATION 09/25/2019 [facility] ([place]) DATE CREATED AUTHOR AUTHOR'S ORGANIZ ATION 06/28/2020 [facility] DATE CREATED AUTHOR AUTHOR'S ORGANIZ ATION 07/04/2020 [facility] DATE CREATED AUTHOR AUTHOR'S ORGANIZ ATION 03/18/2023 [facility] DATE CREATED AUTHOR AUTHOR'S ORGANIZ ATION 08/27/2023 [facility] Source Comments (unrecognize d section and content) In the event this informatio n is protected by the Federal Confidentiality of Alcohol and Drug Abuse Patient Records regulations: The Federal rules restrict any use of the information to criminally investigate or prosecute any alcohol or drug abuse patient.[facility] the event this information is protected by the Federal Confidentiality of Alcohol and Drug Abuse Patient Records regulations: The Federal rules restrict any use of the information to criminally investigate or prosecute any alcohol or drug abuse patient.[facility] the event this information is protected by the Federal Confidentiality of Alcohol and Drug Abuse Patient Records regulations: The Federal rules restrict any use of the information to criminally investigate or prosecute any alcohol or drug abuse patient.[facility] Reason for Visit (unrecogniz ed section and [...] BE BASED ON THE PRIMARY CLINICAL RECORDS. [facility] [employer], [place] [facility]. provides no warranty or guarantee of the accuracy or completeness of information in this document.
[2023-11-06] MEDS: Lactated Ringers 1,000 ML 999 ML IV (10:55)
[2023-11-06 11:16] LABS: Hematocrit 39.5 % (37-47); Hemoglobin 12.8 g/dL (12.0-15.0); Mean Corp Hgb Conc 32.4 g/dL (32-36); Mean Corpuscular Hgb 27.2 pg (27.0-32.0); Mean Platelet Vol. 9.6 fl (6.2-12.0); Platelet Count 314 K/mm3 (150-450); RBC Distribution Width CV 13.9 % (11.6-14.6); RBC Distribution Width SD 42.5 fl (35.1-43.9); White Blood Count 10.3 K/mm3 (4.4-11.0)
[2023-11-06 11:24] LABS: Protein, Urine (Random) 26.9 mg/dL (<11.9); Protein:Creat Ratio 113 mg/g CRE (0-200)
[2023-11-06 11:35] LABS: AST(SGOT) 18 U/L (15-37); Alanine Aminotransfer ALT/SGPT 25 U/L (13-56); Creatinine, Serum 0.55 mg/dL (0.55-1.02); EST Glomerular Filtration Rate 139 mL/min (>60); Est Glom Filt Rate - Afr Amer 168 mL/min (>60); Estimated Creatinine Clearance 191.46 ml/min; Uric Acid 5.1 mg/dL (2.6-6.0)
--- NOTE | 2023-11-06 11:36 | US_ITS ---
STUDY: OBSTETRICAL ULTRASOUND - BIOPHYSICAL PROFILE REASON FOR EXAM: Female, 28 years old tachycardia LMP: Unknown. PRIOR ULTRASOUND: OB ultrasound dated October 21, 2023 TECHNIQUE: Transabdominal TECHNICAL QUALITY: Adequate. FINDINGS: There is a single intrauterine fetus. The fetus is in a cephalic presentation. There is demonstrated cardiac activity with a heart rate of 162 bpm. There is a normal amniotic fluid volume. The largest amniotic fluid pocket measures 7.2 cm. The amniotic fluid index (CESARIO) is 14.9 cm. The placenta is anterior in location and is not low lying. There are Grade 1 placental changes. age by current US: 37 weeks, 4 days. JADEN by current US: November 23, 2023. BIOPHYSICAL PROFILE: Breathing Movements (FBM): 2 Gross Body Movements (GBM): 2 Tone (FT): 2 Amniotic Fluid Volume (AFV): 2 TOTAL SCORE: / US/Biophysical Prof W/O Non Stres IMPRESSION: 1. Normal biophysical profile of 03/29. Electronically Signed: Iraj Andrea MD at 14:03 EDT ,
[2023-11-06 11:42] LABS: Bacteria 0 SEEN /hpf (None Seen); Mucous, Urine 0 SEEN /hpf (<or=2+)
[2023-11-06 11:47] LABS: Color, Urine Amber (Yellow); Glucose, Dipstick Normal (Normal); Ketone-Dipstick 5 mg/dl (Negative); Leukocyte Esterase-Dipstick 25 /ul (Negative); Nitrite-Dipstick Positive (Negative); Occult Blood-Urine 10 /ul (Negative); Protein-Dipstick 30 mg/dl (Negative); Specific Gravity, Urine 1.025 (1.002-1.030); Urine Clarity Clear (Clear); Urine Urobilinogen 1 mg/dl (Normal)
[2023-11-06 11:52] LABS: Urine Bilirubin Dipstick 1 mg/dL (Negative)
[2023-11-06 11:53] LABS: Calcium Oxalate Crystals Ur 2+ /hpf (<or=2+); Red Blood Cells-Urine 5-10 SEEN /hpf (0-5); Squamous Epithelial Cells - UA 10-25 SEEN /hpf (5-10); White Blood Cells 10-25 SEEN /hpf (0-5)
[2023-11-06 11:55] LABS: Syphilis Antibodies Non-reactive
[2023-11-06] MEDS: Lactated Ringers 1,000 ML 150 ML IV (11:55)
--- NOTE | 2023-11-06 12:15 | OB.TRI.HP_ITS ---
HPI - General HPI Narrative GENE FIGUEROA, is a 28 y/o who presents to L&D with pelvic pressure and contractions. She states that before she came in she used THC, 2 cups of caffeinated coffee, and smoked 2 cigarette, and ate a lot of sugar. She states that she just got off a 7 hour, on her feet, shift. The nurse tried to check her cervix and she pulled back and stated that she scratched her cervix and brought on her PTDS . After a long discussion about TCH use in and not recommended by the [employer], she became upset stating that she has a card to use it legally. Her blood pressure spiked to 160's/90's and heart rate showed minimal variability with tachycardia. She then asked me to leave and threatened to leave AMA. Fluid bolus and labs were ordered and she is now resting and more calm. Maternal Data Information JADEN Calculator Estimated Delivery Date Method Current WG Current Estimate 11/23/23 LMP (Certain) 37w 4d PFSH PFSH Medical History Alcohol use Anemia Arthritis Back pain Blackout delivery delivered Chronic cough NADJA II (cervical intraepithelial neoplasia II) Easy bruising Emphysema lung Encounter for IUD removal Former smoker Gastric reflux History of echocardiogram History of IBS Injury of head and neck IUD migration Marijuana use Personality disorder POTS (postural orthostatic tachycardia syndrome) PTSD (post-traumatic stress disorder) Seizures Shortness of breath on exertion Syncope Thyroid disease Home Medications albuterol sulfate 90 mcg/actuation aerosol inhaler 2 puff inhalation Q6H PRN SOB 01/22/22 [History Last Taken Unknown] multivitamin with minerals-folic acid 120 mcg chewable tablet (Adult Multivitamin Gummies) 1 tab PO Q24H 04/05/23 [History Last Taken 11/05/23 16:00 1 TAB] cephalexin 500 mg capsule 500 mg PO BID #14 caps 11/06/23 [Rx Last Taken Unknown] medical marijuana 3XD PTSD 11/06/23 [History Last Taken 11/06/23 05:30] Allergy/AdvReac Type Severity Reaction Status Date / Time Latex, Natural Rubber Allergy Mild Other Verified 11/06/23 09:52 venom-honey bee Allergy Swelling Verified 11/06/23 09:52 [bee venom (honey bee)] diphenhydramine AdvReac behavior Verified 11/06/23 09:52 [From Benadryl] changes Family History Grandfather Diabetes Heart disease Kidney disease Skin cancer Myocardial infarction CVA (cerebral vascular accident) Grandmother Diabetes Myocardial infarction Mother Skin cancer Non Hodgkin's lymphoma, Onset Age: 61 Father Lung cancer COPD (chronic obstructive pulmonary disease) Mesothelioma Surgical History H/O colonoscopy H/O LEEP laser removal of condyloma S/P tonsillectomy and adenoidectomy Social History adopted: No household members: significant other and children number of children: 1 current occupational status: unemployed current occupational exposures/hazards: No pets and animals: Yes (not managing litterbox) pets and animals: cat(s) history of recent travel: No sexually active: Yes Smoking Status: Current every day smoker tobacco type: e-cigarettes Electronic Cigarette Use: with nicotine quit status: not considering quitting counseling given: counseling >3 minutes alcohol intake: never substance use type: marijuana well-balanced diet: about half the time caffeine: Yes Type: coffee Number of servings: 1 and other Number of servings: 1 eating out: 4 or more times/week during the past year weight has: decreased > 10 lbs what type of physical activity do you participate in: none edwar/anglican: None seatbelt use: always do you feel safe at home: Yes additional social history: significant Other- King Segura History 3 Elective abortions Hx Para 1 Spontaneous abortions 1 Hx # Term Pregnancies Ectopic pregnancies Hx # Pregnancies 1 Multiple births # of living children 1 Past Pregnancies Del. Date Name GA/Weeks Outcome Route Bth Weight Gen Labor Lgth Anesthesia Del Locatn Provider FOB 11/14/18 Guerrero 39 live - full term Male sp inal [facility] Delivery Date: 11/14/18 Last Updated by: Jenise Mohan AoD 6-7cm, recurrent variables, nuchal cord tight x2 Visit Details Expected Delivery Route/Plan RLTCS and BS Plans Covid status: [] Flu vaccine: declined Tdap vaccine: dclined Rhogam: na LARC form signed: declined movement and labor precautions reviewed. Problem list reviewed and updated with the most current plan of care details and appropriate orders placed. Relevant counseling for the gestational age provided. Continue routine care and follow up unless otherwise noted in visit notes/problem list details OB Flowsheet Initial Weight: 228 lb Date -?-?-?-?-?-?-?-?-?-?-?-?- EGA Weight BP Urine Prot -?-?-?-?-?-?-?-?-?-?-?-?- Glucose FHR FuHt Pres Dilation -?-?-?-?-?-?-?-?-?-?-?-?- Effaced St Visit Note 04/14/23 -?-?-?-?-?-?-?-?-?-?-?-?- 8w 1d 228 lb 8 oz (+8 oz) 120/78 -?-?-?-?-?-?-?-?-?-?-?-?- 160 -?-?-?-?-?-?-?-?-?-?-?-?- SM- CRL 2 cm con s with LMP 05/16/23 -?-?-?-?-?-?-?-?-?-?-?-?- 12w 5d 225 lb (-3 lb) 130/77 -?-?-?-?-?-?-?-?-?-?-?-?- 160 -?-?-?-?-?-?-?-?-?-?-?-?- LC- no vb/crampi ng. +FHR on handheld u/s. declines afp. mfm anatomy with [id number] CL for hx of leep starting at 16weeks. 08/01/23 -?-?-?-?-?-?-?-?-?-?-?-?- 23w 5d 248 lb (+20 lb) 117/73 Negative -?-?-?-?-?-?-?-?-?-?-?-?- Negative 150 -?-?-?-?-?-?-?-?-?-?-?-?- LC- no vb/ctx/lo f. good fm. 28 week labs ordered. 09/02/23 -?-?-?-?-?-?-?-?-?-?-?-?- 28w 2d 256 lb (+28 lb) 128/79 -?-?-?-?-?-?-?-?-?-?-?-?- 145 28 -?-?-?-?-?-?-?-?-?-?-?-?- kw-no vb/crampin g. good fm. echo done and recommend f/u after for per patient. Discussed RC/S vs TOLAC. would like R C/S with SM. 28 week labs today after appt. 09/16/23 -?-?-?-?-?-?-?-?-?-?-?-?- 30w 2d 259 lb 8 oz (+31 lb 8 oz) 130/85 Negative -?-?-?-?-?-?-?-?-?-?-?-?- Negative 145 30 -?-?-?-?-?-?-?-?-?-?-?-?- JV- no lof, vagi nal bleeding, or dec fm. working on a job interview and stressed out but overall doing well. 09/30/23 -?-?-?-?-?-?-?-?-?-?-?-?- 32w 2d 259 lb (+31 lb) 115/76 Negative -?-?-?-?-?-?-?-?-?-?-?-?- Negative 145 35 -?-?-?-?-?-?-?-?-?-?-?-?- JV- no lof, vagi nal bleeding, or dec fm. title 19 signed today for tubal, larc form signed. 10/14/23 -?-?-?-?-?-?-?-?-?-?-?-?- 34w 2d 265 lb (+37 lb) 119/71 Negative -?-?-?-?-?-?-?-?-?-?-?-?- Negative 140 35 -?-?-?-?-?-?-?-?-?-?-?-?- SM- no vb lof go od fm no regular ctx needs rest of labs drawn 10/28/23 -?-?-?-?-?-?-?-?-?-?-?-?- 36w 2d 266 lb (+38 lb) 126/80 Negative -?-?-?-?-?-?-?-?-?-?-?-?- Negative 160 37 2 -?-?-?-?-?-?-?-?-?-?-?-?- -3 KW-no vb /lof/ctx. good fm. GBS today 11/03/23 -?-?-?-?-?-?-?-?-?-?-?-?- 37w 1d 265 lb (+37 lb) 130/81 Negative -?-?-?-?-?-?-?-?-?-?-?-?- Negative 150 38 -?-?-?-?-?-?-?-?-?-?-?-?- SM- no vb lof go od fm no reuglar ctx ROS Constitutional Constitutional: Reports systems reviewed and no addt'l complaints, except as documented Gastrointestinal Gastrointestinal: Denies bloating, constipation, cramping, diarrhea, nausea or vomiting Genitourinary Genitourinary: Reports other Details: Denies vaginal odor, vaginal bleeding, or vaginal discharge ; Denies difficulty urinating or flank pain Physical Exam HEENT normocephalic Resp normal respiratory effort and normal air movement no CVA tenderness Extremity normal to inspection General Extremity: edema bilateral (trace ) NST FHR Rate Baby A Baseline: 140-170 Variability:: Minimal and Moderate Accelerations:: 15 x 15 Decelerations:: None NST Reactive:: Yes FHR Category:: Category II Uterine Activity:: irregular contractions Assessment & Plan (1) Family history of congenital heart defect: COMMENT: FOB, recommend echo- nl (2) Supervision of high risk , antepartum: COMMENT: PRR, , JADEN 11/23/23, boy Phu MAIRA Masters, Significant other- King (3) : QUALIFIERS: Weeks of gestation: 37 weeks Qualified Code(s): Z3A.37 - 37 weeks gestation of COMMENT: GBS neg, declined ntd genetic & carrier testing , nl anatomy (4) Vaping nicotine dependence, non-tobacco product: COMMENT: counselled on risks of stillbirth, , and growth and development issues. no desire to quit- will consult social work at delivery. Baby may need scn after delivery. (5) Marijuana use during : COMMENT: medical card, counselled on risks of stillbirth, , and growth and development issues. no desire to quit- will consult social work at delivery. Peds in [place] aware. (6) H/O LEEP: COMMENT: january 2023, plan serial cervical length screenings 16-24 (7) Obesity affecting : COMMENT: BMI 40 1 TM GCT, encouraged healthy weight gain. growth US (42%) and weekly NSTs from 34 weeks on (8) delivery delivered: COMMENT: RLTCS scheduled for 11/17 @ 7:30 with SM with BS (title 19 signed 09/30/2023) (9) UTI in , antepartum: COMMENT: repeat culture prior to delivery (around 38 weeks) PLAN: Plan -urine results shows minimal proteinuria but + nitrites and leukocytes consistent with a UTI- starting rochephin 1 g rhonda iv now. -after fluid bolus NST is now a cat 1 and ordering BPP to confirm wellbeing due to chronic THC use. we discussed that the patient and our office had a miscommunication and that we did not know that she was using thc regularly. If we would have known this information we would have counseled MFM sooner. Peds is aware and Children's services will be required to visit the house whenever there is THC in the 's blood stream , regardless if it was administered legally. This does not mean they will take the baby, it is only to ensure a safe environment to the infant. - bpp is 8/8 and heart tones come down to a more reasonable rate with moderate variability, may dc to home with po abx. -professional information was given on the risks of thc for her education. Charges/Coding Multi Select Codes Visit Charges Office Visit/Consults: 00110 OV L3 Est 20min Urinary/Genital Urinary/Genital CPT Codes: 30664-25 non-stress test Interp
[2023-11-06] MEDS: Ceftriaxone 1 GM/50 ML BAG IV (13:15)
== END 2023-11-06 14:15 | disposition home or self-care (01) ==
LOC: WPOUT 09:35 → WP 09:36
PROVIDERS: Visit Provider Obstetrics & Gynecology
DX: O23.43 Unspecified infection of urinary tract in pregnancy, third trimester (principal); O99.323 Drug use complicating pregnancy, third trimester; O99.333 Smoking (tobacco) complicating pregnancy, third trimester; O99.213 Obesity complicating pregnancy, third trimester; O09.893 Supervision of other high risk pregnancies, third trimester; F17.290 Nicotine dependence, other tobacco product, uncomplicated; Z3A.37 37 weeks gestation of pregnancy
CPT/HCPCS: 96365; 96361; 36415; 59025; 59050; 76815; 76819; 81001; 82565; 82570; 84156; 84450; 84460; 84550; 85027; 86780; 86850; 86900; 86901; 99221; J7120; G0378

== ENCOUNTER 2023-11-18 04:35 | Inpatient (IN) | payer MEDICAID, SELFPAY ==
--- NOTE | 2023-11-17 17:33 | HP.PCM_ITS ---
History and Physical Date of Admission: 11/18/23 Vital Signs 08/01/2313:13 10/14/2414:40 10/28/2415:04 11/05/2408:57 11/10/2412:24 11/10/2412:24 Height 5 ft 3 in 5 ft 3 in 5 ft 3 in 5 ft 3 in 5 ft 3 in 5 ft 3 in Weight: 272 lb 4 oz BMI 48.2 BP 127/84 H Intake Visit Reasons: 38 WK OB/NST Materials Associate Required: No Is patient in pain?: No Allergies Latex, Natural Rubber Allergy (Mild, Verified 11/11/23 13:23) Othervenom-honey bee [bee venom (honey bee)] Allergy (Verified 11/11/23 13:23) Swellingdiphenhydramine [From Benadryl] Adverse Reaction (Verified 11/11/23 13:23) behavior changes Medications albuterol sulfate 90 mcg/actuation aerosol inhaler 2 puff inhalation Q6H PRN SOB 01/22/22 [History Confirmed 11/11/23] multivitamin with minerals-folic acid 120 mcg chewable tablet (Adult Multivitamin Gummies) 1 tab PO Q24H 04/05/23 [History Confirmed 11/11/23] cephalexin 500 mg capsule 500 mg PO BID #14 caps 11/06/23 [Rx Confirmed 11/11/23] medical marijuana 3XD PTSD 11/06/23 [History Confirmed 11/11/23] Last Menstrual Period: 02/16/23 Zika: Zika virus screening: Negative : No PFSH PFSH Medical History Alcohol use Anemia Arthritis Back pain Blackout delivery delivered Chronic cough NADJA II (cervical intraepithelial neoplasia II) Easy bruising Emphysema lung Encounter for IUD removal Former smoker Gastric reflux History of echocardiogram History of IBS Injury of head and neck IUD migration Marijuana use Personality disorder POTS (postural orthostatic tachycardia syndrome) PTSD (post-traumatic stress disorder) Seizures Shortness of breath on exertion Syncope Thyroid disease Surgical History H/O colonoscopy H/O LEEP laser removal of condyloma S/P tonsillectomy and adenoidectomy Family History Grandfather Diabetes Heart disease Kidney disease Skin cancer Myocardial infarction CVA (cerebral vascular accident)Grandmother Diabetes Myocardial infarctionMother Skin cancer Non Hodgkin's lymphoma, Onset Age: 61Father Lung cancer COPD (chronic obstructive pulmonary disease) Mesothelioma Social History adopted: No household members: significant other and children number of children: 1 current occupational status: unemployed current occupational exposures/hazards: No pets and animals: Yes (not managing litterbox) pets and animals: cat(s) history of recent travel: No sexually active: Yes Smoking Status: Current every day smoker tobacco type: e-cigarettes Electronic Cigarette Use: with nicotine quit status: not considering quitting counseling given: counseling >3 minutes alcohol intake: never substance use type: marijuana well-balanced diet: about half the time caffeine: Yes Type: coffee Number of servings: 1 and other Number of servings: 1 eating out: 4 or more times/week during the past year weight has: decreased > 10 lbs what type of physical activity do you participate in: none edwar/rastafarian: None seatbelt use: always do you feel safe at home: Yes additional social history: significant Other- King Segura History 3 Elective abortions Hx Para 1 Spontaneous abortions 1 Hx # Term Pregnancies Ectopic pregnancies Hx # Pregnancies 1 Multiple births # of living children 1 Past Pregnancies Del. Date Name GA/Weeks Outcome Route Bth Weight Infant Gen Labor Lgth Anesthesia Del [facility] Provider FOB 11/14/18 Guerrero 39 live - full term C- section Male spinal [facility] Delivery Date: 11/14/18 Last Updated by: Jenise Mohan AoD 6-7cm, recurrent variables, nuchal cord tight x2 HPI 38 WK OB/NST Details: GENE FIGUEROA is a 28 year old who presents for routine OB visit. OB Visit JADEN Calculator Estimated Delivery Date Method Current WG Current Estimate 11/23/23 LMP (Certain) 38w 2d Expected Delivery Route/Plan RLTCS and BS Specific Issue/Plans Covid status: [] Flu vaccine: declined Tdap vaccine: dclined Rhogam: na LARC form signed: declined movement and labor precautions reviewed. Problem list reviewed and updated with the most current plan of care details and appropriate orders placed. Relevant counseling for the gestational age provided. Continue routine care and follow up unless otherwise noted in visit notes/problem list details Initial Weight: 228 lb Date -?-?--?-?-?-?-?-?-?-?-?-?- EGA Weight BP Urine Prot -?-?-?-?-?-?-?-?-?-?-?-?- Glucose FHR FuHt Pres Dilation -?-?-?-?-?-?-?-?-?-?-?-?- Effaced St Visit Note 04/14/23-?-?-?-?-?-?-?-?-?-?-?-?- 8w 1d 228 lb 8 oz(+8 oz) 120/78 -?-?-?-?-?-?-?-?-?-?-?-?- 160 -?-?-?-?-?-?-?-?-?-?-?-?- SM- CRL 2 cm cons with LMP 05/16/23-?-?-?-?-?-?-?-?-?-?-?-?- 12w 5d 225 lb(-3 lb) 130/77 -?-?-?-?-?-?-?-?-?-?-?-?- 160 -?-?-?-?-?-?-?-?-?-?-?-?- LC- no vb/cramping. +FHR on handheld u/s. declines afp. mfm anatomy with [id number] CL for hx of leep starting at 16weeks. 08/01/23-?-?-?-?-?-?-?-?-?-?-?-?- 23w 5d 248 lb(+20 lb) 117/73 Negative -?-?-?-?-?-?-?-?-?-?-?-?- Negative 150 -?-?-?-?-?-?-?-?-?-?-?-?- LC- no vb/ctx/lof. good fm. 28 week labs ordered. 09/02/23-?-?-?-?-?-?-?-?-?-?-?-?- 28w 2d 256 lb(+28 lb) 128/79 -?-?-?-?-?-?-?-?-?-?-?-?- 145 28 -?-?-?-?-?-?-?-?-?-?-?-?- kw-no vb/cramping. good fm. echo done and recommend f/u after for infant per patient. Discussed RC/S vs TOLAC. would like R C/S with SM. 28 week labs today after appt. 09/16/23-?-?-?-?-?-?-?-?-?-?-?-?- 30w 2d 259 lb 8 oz(+31 lb 8 oz) 130/85 Negative -?-?-?-?-?-?-?-?-?-?-?-?- Negative 145 30 -?-?-?-?-?-?-?-?-?-?-?-?- JV- no lof, vaginal bleeding, or dec fm. working on a job interview and stressed out but overall doing well. 09/30/23-?-?-?-?-?-?-?-?-?-?-?-?- 32w 2d 259 lb(+31 lb) 115/76 Negative -?-?-?-?-?-?-?-?-?-?-?-?- Negative 145 35 -?-?-?-?-?-?-?-?-?-?-?-?- JV- no lof, vaginal bleeding, or dec fm. title 19 signed today for tubal, larc form signed. 10/14/23-?-?-?-?-?-?-?-?-?-?-?-?- 34w 2d 265 lb(+37 lb) 119/71 Negative -?-?-?-?-?-?-?-?-?--?-?-?- Negative 140 35 -?-?-?-?-?-?-?-?-?-?-?-?- SM- no vb lof good fm no regular ctx needs rest of labs drawn 10/28/23-?-?-?-?-?-?-?-?-?-?-?-?- 36w 2d 266 lb(+38 lb) 126/80 Negative -?-?-?-?-?-?-?-?-?-?-?-?- Negative 160 37 2-?-?-?-?--?-?-?-?-? -?-?-?- -3 KW-no vb/lof/ctx. good fm. GBS today 11/03/23-?-?-?-?-?-?-?-?-?-?-?-?- 37w 1d 265 lb(+37 lb) 130/81 Negative -?-?-?-?-?-?-?-?-?-?-?-?- Negative 150 38 -?-?-?-?-?-?-?-?-?-?-?-?- SM- no vb lof good fm no reuglar ctx 11/11/23-?-?-?-?-?-?-?-?-?-?-?-?- 38w 2d 272 lb 4 oz(+44 lb 4 oz) 127/84 Negative -?-?-?-?-?-?-?-?-?-?-?-?- Negative 140 -?-?-?-?-?-?-?-?-?-?-?-?- SM- no vb lof good fm nro egualr ctx ACOG First Trimester First Trimester: Desire for , Alcohol, Tobacco Cessation, Illicit/Recreational Drug/Substance Use, Intimate Partner Violence, Barriers to care, Unstable Housing, Communication Barriers, Environmental/Work Hazards, Anticipated Course of Care, Toxoplasmosis Precations, Use of Any medications, Sexual activity, Exercise, Dental Care, Sauna/Hot tub use, Seat Belt use, Childbirth classes/Hospital facilities, Travel, Indications for Ultrasound and Screening for Aneuploidy; Discussed Second Trimester Second Trimester: Signs and Symptoms of Labor, Selecting a care provider, Reproductive Life Planning & Contreception, Care Planning, Depression/Anxiety and Intimate Partner Violence; Discussed Tobacco Cessation ROS Const Reports system reviewed and no additional complaints, except as documented Card Reports system reviewed and no additional complaints, except as documented Resp Reports system reviewed and no additional complaints, except as documented GI Reports system reviewed and no additional complaints, except as documented and Reports nausea Reports system reviewed and no additional complaints, except as documented Musc Reports system reviewed and no additional complaints, except as documented Exam Const General: cooperative, healthy appearing, comfortable and anxious HENMT Head: normal to inspection Nose: external nose normal Face and sinus: normal facial exam Neck Neck: normal visual inspection, full ROM and no lymphadenopathy Thyroid: thyroid normal Chest Chest palpation & inspection: normal inspection of the chest Resp Effort & Inspection: normal respiratory effort GI Inspection: normal to inspection Palpation: soft and other (gravid uterus) Other: vertex and appropriate size for gestational age Other: Cervical Exam: Extrem General: pedal edema Results POC Urinalysis 2 Dip (Clinic) Office Urine Glucose Negative Last Edit by Inge Lopez on 11/11/23 14:12 Office Urine Protein Negative Last Edit by Inge Lopez on 11/11/23 14:12 Coding Level of Care Code OB Routine Diagnoses UTI in , antepartum O23.40 delivery delivered O82 Family history of congenital heart defect Z82.79 Supervision of high risk , antepartum O09.90 38 weeks gestation of Z3A.38 Weeks of gestation: 38 weeks Obesity affecting O99.210 Vaping nicotine dependence, non-tobacco product F17.200 Marijuana use during O99.320; F12.90 H/O LEEP Z98.890 Assessment and Plan Assessment and Plan (1) UTI in , antepartum: Status: Acute Comment: repeat culture prior to delivery (around 38 weeks) (2) delivery delivered: Status: Acute Comment: RLTCS scheduled for 11/17 @ 7:30 with SM with BS (title 19 signed 09/30/2023) (3) Family history of congenital heart defect: Status: Acute Comment: FOB, recommend echo- nl (4) Supervision of high risk , antepartum: Status: Acute Comment: PRR, , JADEN 11/23/23, boy Phu MAIRA Torresse, Significant other- King (5) : Status: Acute Qualifiers: Weeks of gestation: 38 weeks Qualified Code(s): Z3A.38 - 38 weeks gestation of Comment: GBS neg, declined ntd genetic & carrier testing , nl anatomy (6) Obesity affecting : Status: Acute Comment: BMI 40 1 TM GCT, encouraged healthy weight gain. growth US (42%) and weekly NSTs from 34 weeks on (7) Vaping nicotine dependence, non-tobacco product: Status: Acute Comment: counselled on risks of stillbirth, , and growth and development issues. no desire to quit- will consult social work at delivery. Baby may need scn after delivery. (8) Marijuana use during : Status: Acute Comment: medical card, counselled on risks of stillbirth, , and growth and development issues. no desire to quit- will consult social work at delivery. Peds in [place] aware. (9) H/O LEEP: Status: Acute Comment: january 2023, plan serial cervical length screenings 16-24 Orders: Orders POC Urinalysis 2 Dip (Clinic) Today OB NST Today O99.210 - Obesity complicating , unspecified trimester Plan After discussing the patient's diagnosis and treatment plan options, patient wishes to proceed with surgical management. I have discussed with the patient the risks, benefits, and alternatives of the procedure which include but are not limited to risks of anesthesia, bleeding, infection, possible damage to bowel, bladder, or surrounding vasculature which could lead to additional surgery to evaluate any complications. Patient agrees to procedure and wishes to proceed. ACOG/uptodate references given for additional information regarding procedure.
[2023-11-18] VITALS (17 sets, daily range): BP systolic 117–139; BP diastolic 75–98; PULSE 80–100; RESP 16–20; TEMP 36.1–36.7; O2SAT 96–100; BMI 48.9
--- NOTE | 2023-11-18 | FALS_PTH ---
PATIENT: GENE FIGUEROA LOC: [facility] U#:[id number] AGE/SX: 28/ ROOM: WP005 RE11/18/[address]: Dr. Susanne Bains MD : [id number] BED: 1 DIS: 11/20/2023 SPEC #: [id number] RECD: 11/18/23 11:46 STATUS: KAYLYN RESendy #: [id number] KEVIN: 11/18/23 00:[address]: Susanne Bains DEPT: SURGICAL PATHOLOGY RECD BY: King Zuñiga ENTERED: 11/18/23 11:46 SP TYPE: FALL TUBES OTHR DR: No Primary Care Phys Tissues: A - Placenta, NOS B - Fallopian tube Procedures: Surgery Specimen Level II Surgery Specimen Level V HEADER OPERATION: section and tubal ligation PRE-OP DIAGNOSIS: Repeat section, sterilization TISSUE SUBMITTED: A- Placenta, B- Fallopian tubes MICROSCOPIC DIAGNOSIS A. Placenta: Placental disc - third trimester placenta (546 gm). - Focal area of intraparenchymal hemorrhage with fibrin deposition (plaque maternal surface). - Focal area of increased intervillous and perivillous fibrin deposition. Membranes - no pathologic diagnosis. Umbilical cord - three blood vessels and focal mild acute funisitis B. Bilateral fallopian tubes, salpingectomy: Bilateral fallopian tubes, no pathologic diagnosis. SJ: 11/22/23 MICROSCOPIC DESCRIPTION Slides are reviewed. GROSS DESCRIPTION A. SPECIMEN: PLACENTA / CLINICAL INFORMATION: A. Weight: 3.240 kg B. Gestational Age: 39 weeks C. Sex: Male PLACENTAL WEIGHT (POST FIXATION): 546 gm PLACENTAL DIMENSIONS: 21.0 x 19.0 x 3.0 cm PLACENTAL SHAPE: Usual ovoid PLACENTAL WEIGHT FOR GESTATIONAL AGE: Within 10-99th percentile MEMBRANES - Present A. Insertion: Marginal B. Site of rupture from edge: The membranes are partly fragmented and appear to rupture at the margin of the placenta. C. Color of membrane: Abrams-terry D. Abnormalities: None UMBILICAL CORD - Present A. Color: Abrams-terry B. Insertion: Paracentral C. Length: 34 cm D. Diameter: 0.9 cm E. Number of vessels: Three F. Abnormalities: None PLACENTAL DISC - Present A. Color of surface: Abrams-terry B. surface abnormalities: None C. Maternal cotyledons: Intact with minimal tears D. Attached retro placental clot: No clot E. Cut surface: Dark red and spongy F. Lesions: One plaque like lesion on the maternal surface measuring 0.5 x 0.2cm in greatest dimension. G. Separate clot: Multiple blood clots are noted weighing In aggregate 16gm and measuring in aggregate 6.0 x 5.0 x 2.0cm SECTIONS SUBMITTED: 1. Membrane roll 2. Cord, maternal end 3. Cord, end, lesion 4. Placental disc, and maternal surfaces 5. Placental disc, and maternal surfaces 6. Placental disc, and maternal surfaces B. Received in fixative is one container labeled with the patient's name and designated bilateral fallopian tubes, stitch in left tube. The specimen consists of bilateral fallopian tubes including fimbrial ends. Right fallopian tube measures 5.0 cm in length and up to 1.0 cm in diameter. The left fallopian tube measures 6.0cm in length and up to 1.0cm in diameter. Sections reveal unremarkable cut surfaces. Derrick Barge Operator sections are submitted in two cassettes as follows: 1- Right fallopian tube, 2- Left fallopian tube SJ: 11/21/23 SJ/ 11/21/23 TC: 2 CPT: 96707 x2, 41418
[2023-11-18] MEDS: Lactated Ringers 1,000 ML 999 ML IV (05:00)
--- NOTE | 2023-11-18 05:18 | OP.PCM_ITS ---
Assessment & Plan (1) UTI in , antepartum: COMMENT: repeat culture prior to delivery (around 38 weeks) (2) Family history of congenital heart defect: COMMENT: FOB, recommend echo- nl (3) Supervision of high risk , antepartum: COMMENT: PRR, , JADEN 11/23/23, boy Phu Masters, Significant other- King (4) : QUALIFIERS: Weeks of gestation: 38 weeks Qualified Code(s): Z3A.38 - 38 weeks gestation of COMMENT: GBS neg, declined ntd genetic & carrier testing , nl anatomy (5) Obesity affecting : COMMENT: BMI 40 1 TM GCT, encouraged healthy weight gain. growth US (42%) and weekly NSTs from 34 weeks on (6) Vaping nicotine dependence, non-tobacco product: COMMENT: counselled on risks of stillbirth, , and growth and development issues. no desire to quit- will consult social work at delivery. Baby may need scn after delivery. (7) Marijuana use during : COMMENT: medical card, counselled on risks of stillbirth, , and growth and development issues. no desire to quit- will consult social work at delivery. Peds in [place] aware. (8) delivery delivered: COMMENT: RLTCS scheduled for 11/17 @ 7:30 with SM with BS (title 19 signed 09/30/2023) (9) H/O LEEP: COMMENT: january 2023, plan serial cervical length screenings 16-24 Maternal Data Information JADEN Calculator Estimated Delivery Date Method Current WG Current Estimate 11/23/23 LMP (Certain) 39w 2d Final JADEN Source: LMP Details Operative Information Date of Procedure: 11/18/23 Pre-Operative Diagnosis: Previous Post-Operative Diagnosis: same Indications for : Repeat Elective Indications Narrative: Surgeon: Susanne Bains MD Classification: Scheduled Procedure Type: low transverse Type of Anesthesia: Spinal Special Medications: none Antibiotic Given: Ancef 2 grams IV x1 Drain: Simpson to straight drain Fluids Replaced: crystalloid Procedure Start Time: 07:56 Procedure Stop Time: 08:35 Findings Description of Procedure: Spinal anesthesia was placed without difficulty. Simpson catheter was placed. The patient was placed in the dorsal supine position with leftward tilt. Patient was prepped and draped in the normal sterile fashion. Pfannenstiel skin incision was made with the scalpel and carried through to the underlying layer of fascia with the scalpel. Fascia was nicked in the midline and the incision extended laterally. The rectus bellies were dissected off superiorly and inferiorly with out complication both sharply and bluntly. The peritoneum was entered digitally. The incision was stretched and a low transverse uterine incision was made with the scalpel. The infant's head was delivered atraumatically followed by the anterior and posterior shoulders without complication the rest of the infant delivered. The cord was clamped and cut and the was handed off to awaiting nurse. The placenta was delivered spontaneously immediately following and was noted to be intact and have a three- vessel cord. The uterus was exteriorized cleared of all clots and debris, and the incision was closed in a single layer closure using #1 Monocryl. The ovaries and fallopian tubes were noted to be within normal limits. Patient had desired sterilization and was counseled preoperatively regarding irreversibility and permanency. Therefore bilateral fallopian tubes were elevated and transec lizzy across using a LigaSure device starting proximally to distally without complication the entire fallopian tubes were removed. The uterus was returned to the maternal abdomen and gutters were cleared of all clots and debris. The peritoneum was closed with 3-0 Monocryl in a running fashion. Gloves were changed prior to fascial closure. Fascia was closed with 0 PDS in a running fashion. Subcutaneous tissue was copiously irrigated and the skin was closed with 3-0 Monocryl in a subcuticular fashion. Mepilex dressing was applied without complication. Patient was taken to recovery in stable condition. Amniotic Membrane Rupture Type: Artificial Amniotic Fluid Description: Clear Placenta Disposition: [facility] Cord Vessel Description: 3 Vessels Delayed Cord Clamping: Yes Complications Risks of Surgery Discussed w/Patient: Bleeding, Infection, Need for Future C- Sections and Injury to surrounding structure(s) including bowel and bladder Vaginal Delivery Complication Complications: None Admit VTE Documentation VTE Present on Admission: No VTE Mechan Device Prophylaxis: SCD's Multi Select Codes Urinary/Genital Urinary/Genital CPT Codes: 56072 C/S+TL and 33900 delivery+PP Care([facility])
--- NOTE | 2023-11-18 05:19 | DCINST_ITS ---
Discharge Instructions Diet Discharge Diet: No restrictions Activity Discharge Activity: May Not Drive (for 2 weeks or while taking narcotic pain medications.), May Shower and May Take a Tub Bath (in 7 days) May shower in (days): 0 May resume sexual activity in: 4-6 weeks Weight Bearing Status: Full weight bearing Lifting Restrictions: 20 pounds Dressing / Incision Call your doctor if your incision/area has: Continuous Slow Oozing, Sudden Increased Bleeding, Increased Pain/ Swelling, Increased Redness and Foul Smelling Discharge Call your doctor if you observe: Fever of 101 or Higher and Using more than 1 pad per hour (for 2 hours) Suture Line Care: Avoid Pulling/Pushing and Avoid Pinching/Bending Cleanse incision/area with: Soap & Water and Keep Dressing Clean & Dry Follow Up Care Please Follow Up With: Susanne Bains MD When: Call [phone] to make an appointment for an incision check in 1-2 weeks. Test Results: Test results from this visit will be discussed in further detail at your follow- up appointment, if applicable. Discharge Plan Admission Admit Date/Time: 11/18/23 04:35 Attending Provider: Susanne Bains Primary Care Provider: Care Lilly Mott Primary Discharge Orders/Prescriptions Prescriptions: New oxycodone-acetaminophen [Percocet] 5-325 mg tablet 1 tab PO Q6H PRN (Reason: pain) 7 Days Qty: 20 0RF naproxen [naproxen] 500 mg tablet 500 mg PO BID PRN PRN (Reason: Pain) Qty: 30 1RF No Action albuterol sulfate 90 mcg/actuation HFA aerosol inhaler 2 puff inhalation Q6H PRN (Reason: SOB) multivit with min-folic acid [Adult Multivitamin Gummies] 120 mcg tablet,chewable 1 tab PO Q24H medical marijuana 3XD Rx Instructions: every 5 hours as needed per vape Referrals / Follow Up: Care PhysicianLilly Primary [Primary Care Provider] - Disposition Disposition (needs filled in before D/C Order can be placed): Home, Self Care
[2023-11-18 05:21] LABS: Absolute Lymphocyte Count 1.91 X10^3/uL (0.83-4.51); Absolute Neutrophil Count 6.9 X10^3/uL (2.0-7.7); Basophil# 0.03 X10^3/uL; Basophil% 0.3 % (0-1); Eosinophil# 0.13 X10^3/uL; Eosinophils% 1.3 % (0-5); Hematocrit 36.1 % (37-47); Hemoglobin 11.7 g/dL (12.0-15.0); Lymphocyte # 1.91 X10^3/ul (0.83-4.51); Lymphocyte % 19.5 % (19-41); Mean Corp Hgb Conc 32.4 g/dL (32-36); Mean Corpuscular Hgb 27.5 pg (27.0-32.0); Mean Corpuscular Volume 84.7 fL (81-99); Mean Platelet Vol. 9.5 fl (6.2-12.0); Monocyte# 0.77 X10^3/uL; Monocyte% 7.9 % (0-10); NRBC Flagged by Analyzer 0 % (0-5); Neutrophil # 6.89 X10^3/uL (2.7-7.7); Neutrophil % 70.3 % (47-70); Platelet Count 324 K/mm3 (150-450); RBC Distribution Width CV 14.3 % (11.6-14.6); RBC Distribution Width SD 43.5 fl (35.1-43.9); Red Blood Count 4.26 M/mm3 (4.2-5.4); White Blood Count 9.8 K/mm3 (4.4-11.0)
[2023-11-18] MEDS: Lactated Ringers 1,000 ML 150 ML IV (06:01)
[2023-11-18 06:07] LABS: Syphilis Antibodies Non-reactive
[2023-11-18] MEDS: Sodium Citrate/Citric Acid 30 ML UDC PO (06:35)
[2023-11-18] MEDS: Acetaminophen 500 MG Tablet 1000 MG PO ×3 (06:35→19:12)
[2023-11-18 07:17] LABS: Amphetamine Urine VISTA NEGATIVE (<1000 ng/mL); Barbiturate Urine VISTA NEGATIVE (< 200 ng/mL); Benzodiazepine Urine VISTA NEGATIVE (< 200 ng/mL); Cocaine Urine VISTA NEGATIVE (< 300 ng/mL); Ecstacy Urine VISTA NEGATIVE (< 500 ng/mL); Methadone Urine VISTA NEGATIVE (< 300 ng/mL); PCP Urine VISTA NEGATIVE (< 25 ng/mL); THC Urine VISTA POSITIVE (< 50 ng/mL); Vista UDS pH Range 6
[2023-11-18] MEDS: Cefazolin 2 GM in 0.9% Normal Saline (100mL Bag) 100 ML IV (07:30)
--- NOTE | 2023-11-18 08:24 | EKG12_ITS ---
Test Reason : Blood Pressure : / mmHG Vent. Rate : 082 BPM Atrial Rate : 082 BPM P-R Int : 174 ms QRS Dur : 066 ms QT Int : 408 ms P-R-T Axes : 000 037 043 degrees QTc Int : 476 ms Low Atrial Rhythm Otherwise Normal ECG Confirmed by Rj Brown ([id number]), supervising editor trailer CODEY LAYTON ([id number]) on 11/21/2023 1:00:57 PM Referred By: SONAM Confirmed By:Rj Brown
[2023-11-18] MEDS: Oxytocin 15 Units/NS 250ml 15 UNITS/250 ML IV.SOLN 83 UNITS IV (08:45)
[2023-11-18] MEDS: Ketorolac 30 MG/ML Syringe IV ×3 (09:39→21:25)
[2023-11-18] MEDS: Methylergonovine 0.2 MG/ML Ampul IM (09:42)
[2023-11-18] MEDS: oxyCODONE 5 MG Tablet PO (14:36)
[2023-11-18] MEDS: 0.9% Saline Lock 10 ML Syringe IV (15:52)
--- NOTE | 2023-11-18 16:12 | NURSING ---
blood pressures called to she states unless the pressures are at htn level she will reevaluate them at 24 hours.
[2023-11-18] MEDS: Enoxaparin 40 MG/0.4 ML Syringe SC (21:25)
[2023-11-19 00:41] VITALS: BP 136/85; PULSE 98; RESP 20
[2023-11-19] MEDS: Acetaminophen 500 MG Tablet 1000 MG PO ×4 (00:43→18:37)
[2023-11-19] MEDS: oxyCODONE 5 MG Tablet PO ×3 (00:43→17:02)
[2023-11-19] MEDS: Ketorolac 30 MG/ML Syringe IV (03:23)
[2023-11-19 03:26] VITALS: BP 130/84; PULSE 96; RESP 18; O2SAT 98
[2023-11-19 07:03] LABS: Hemoglobin 11.7 g/dL (12.0-15.0); Mean Corp Hgb Conc 32.5 g/dL (32-36); Mean Corpuscular Hgb 27.5 pg (27.0-32.0); Mean Corpuscular Volume 84.5 fL (81-99); Mean Platelet Vol. 9.4 fl (6.2-12.0); Platelet Count 307 K/mm3 (150-450); RBC Distribution Width CV 14.6 % (11.6-14.6); RBC Distribution Width SD 44.5 fl (35.1-43.9); Red Blood Count 4.26 M/mm3 (4.2-5.4); White Blood Count 10.5 K/mm3 (4.4-11.0)
[2023-11-19] MEDS: Enoxaparin 40 MG/0.4 ML Syringe SC ×2 (08:17→20:10)
[2023-11-19] MEDS: Naproxen 500 MG Tablet PO ×2 (08:18→16:59)
[2023-11-19] MEDS: Senna/Docusate Sodium 1 Tablet PO (08:18)
[2023-11-19 08:20] VITALS: BP 125/90; PULSE 92; RESP 18; TEMP 36.8; O2SAT 98
--- NOTE | 2023-11-19 09:47 | PCM.PN.OB ---
Subjective Subjective Patient doing well without complaints. Tolerating PO. Ambulating and voiding without difficulty. feeding well. Denies chest pain, shortness of breath, calf pain/swelling, fevers, chills, lightheadedness. Objective Data Objective Data Vital Signs: Vital Signs Temp Pulse Resp BP Pulse Ox O2 Del Method 98.2 F 92 18 125/90 H 98 Room Air 11/19/23 08:20 11/19/23 08:20 11/19/23 08:20 11/19/23 08:20 11/19/23 08:20 11/19/23 08:20 Oxygen Delivery Method Room Air Weight: 276 lb 6 oz Body Mass Index (BMI) 48.9 Intake & Output: Intake and Output for Last 24 Hours 11/17/23 11/18/23 11/19/23 23:59 23:59 23:59 Intake Total 2560 / 2560 Output Total 1700 / 1700 Balance 860 / 860 Lab / Micro Data 11/19/23 06:55 Labs: Laboratory Results - last 24 hr 11/19/23 06:55: WBC 10.5, RBC 4.26, Hgb 11.7 L, Hct 36.0 L, MCV 84.5, MCH 27.5, MCHC 32.5, RDW Std Deviation 44.5 H, RDW Coeff of Edmundo 14.6, Plt Count 307, MPV 9.4 ROS Constitutional Constitutional: Reports systems reviewed and no addt'l complaints, except as documented Cardiovascular Cardiovascular: Reports systems reviewed and no addt'l complaints, except as documented Respiratory/Chest Respiratory/Chest: Reports systems reviewed and no addt'l complaints, except as documented Gastrointestinal Gastrointestinal: Reports systems reviewed and no addt'l complaints, except as documented Physical Exam Const alert, oriented x3 and no apparent distress HEENT Head and Scalp: atraumatic Resp normal respiratory effort GI soft to palpation and non-tender Inspection: incision intact, healing well and drainage (none) Bimanual Exam - Vag & Uterus: uterus non-tender Uterus Palpation: uterus fundus firm (below Umbilicus) Assessment & Plan (1) delivery delivered: COMMENT: RLTCS scheduled for 11/17 @ 7:30 with SM with BS (title 19 signed 09/30/2023) PLAN: Plan s/p LTCS PPD # 1 1. routine post care 2. breast feeding- support given 3. rh positive 4. rubella immune
[2023-11-19 14:55] VITALS: BP 123/84; PULSE 94; RESP 16; TEMP 36.2; O2SAT 100
[2023-11-19 20:00] VITALS: BP 115/90; PULSE 90; RESP 18; TEMP 36.2
[2023-11-20] MEDS: Acetaminophen 500 MG Tablet 1000 MG PO ×3 (00:04→12:00)
[2023-11-20] MEDS: Naproxen 500 MG Tablet PO ×2 (01:21→09:11)
[2023-11-20 02:00] VITALS: BP 130/87; PULSE 102; RESP 14; TEMP 36.6; O2SAT 100
--- NOTE | 2023-11-20 04:22 | PCM.PN.OB ---
Subjective Subjective Patient doing well without complaints. Tolerating PO. Ambulating and voiding without difficulty. feeding well. Denies chest pain, shortness of breath, calf pain/swelling, fevers, chills, lightheadedness. Objective Data Objective Data Vital Signs: Vital Signs Temp Pulse Resp BP Pulse Ox O2 Del Method 97.9 F 102 H 14 130/87 H 100 Room Air 11/20/23 02:00 11/20/23 02:00 11/20/23 02:00 11/20/23 02:00 11/20/23 02:00 11/20/23 02:00 Oxygen Delivery Method Room Air Weight: 276 lb 6 oz Body Mass Index (BMI) 48.9 Intake & Output: Intake and Output for Last 24 Hours 11/18/23 11/19/23 11/20/23 23:59 23:59 23:59 Intake Total 2560 / 2560 Output Total 1700 / 1700 Balance 860 / 860 Lab / Micro Data 11/19/23 06:55 Labs: Laboratory Results - last 24 hr 11/19/23 06:55: WBC 10.5, RBC 4.26, Hgb 11.7 L, Hct 36.0 L, MCV 84.5, MCH 27.5, MCHC 32.5, RDW Std Deviation 44.5 H, RDW Coeff of Edmundo 14.6, Plt Count 307, MPV 9.4 ROS Constitutional Constitutional: Reports systems reviewed and no addt'l complaints, except as documented Cardiovascular Cardiovascular: Reports systems reviewed and no addt'l complaints, except as documented Respiratory/Chest Respiratory/Chest: Reports systems reviewed and no addt'l complaints, except as documented Gastrointestinal Gastrointestinal: Reports systems reviewed and no addt'l complaints, except as documented Physical Exam Const alert, oriented x3 and no apparent distress HEENT Head and Scalp: atraumatic Resp normal respiratory effort GI soft to palpation and non-tender Inspection: incision intact, healing well and drainage (none) Bimanual Exam - Vag & Uterus: uterus non-tender Uterus Palpation: uterus fundus firm (below Umbilicus) Assessment & Plan (1) delivery delivered: COMMENT: RLTCS scheduled for 11/17 @ 7:30 with SM with BS (title 19 signed 09/30/2023) PLAN: Plan s/p LTCS PPD # 2 1. routine post care 2. breast feeding- support given 3. rh positive 4. rubella immune
[2023-11-20 08:56] VITALS: BP 139/94; PULSE 93; RESP 16; TEMP 36.4; O2SAT 99
[2023-11-20] MEDS: Enoxaparin 40 MG/0.4 ML Syringe SC (09:06)
[2023-11-20] MEDS: Senna/Docusate Sodium 1 Tablet PO (09:11)
[2023-11-20] MEDS: oxyCODONE 5 MG Tablet PO (10:31)
[2023-11-22 06:08] LABS: Pathology Specimen OB SEE PATHOLOGY REPORT
== END 2023-11-20 12:30 | disposition home or self-care (01) | DRG 539 ==
PROVIDERS: Admitting Provider Obstetrics & Gynecology; Visit Provider Obstetrics & Gynecology
PROC: 10D00Z1 Extraction of Products of Conception, Low, Open Approach (ICD-10-PCS; CPT 59514; principal; 2023-11-18 07:45)
DX: O34.211 Maternal care for low transverse scar from previous cesarean delivery (principal); F17.290 Nicotine dependence, other tobacco product, uncomplicated; O99.214 Obesity complicating childbirth; Z30.2 Encounter for sterilization; O99.334 Smoking (tobacco) complicating childbirth; Z3A.38 38 weeks gestation of pregnancy; Z37.0 Single live birth; Z87.440 Personal history of urinary (tract) infections; Z79.899 Other long term (current) drug therapy
CPT/HCPCS: 59025; 59050; 80307; 85025; 85027; 86780; 86850; 86900; 86901; 88302; 88307; 93005; 99221; J7120; A4216; G0378; J2405

== ENCOUNTER 2023-11-21 18:53 | Outpatient (CLI) | payer MEDICAID, SELFPAY ==
[2023-11-21] VITALS (9 sets, daily range): BP systolic 133–146; BP diastolic 77–99; PULSE 80–96; RESP 16; TEMP 36.4; O2SAT 99
[2023-11-21 20:15] LABS: Hematocrit 33.4 % (37-47); Mean Corp Hgb Conc 32.9 g/dL (32-36); Mean Corpuscular Hgb 28.1 pg (27.0-32.0); Mean Corpuscular Volume 85.2 fL (81-99); Mean Platelet Vol. 9.3 fl (6.2-12.0); Platelet Count 345 K/mm3 (150-450); RBC Distribution Width CV 14.4 % (11.6-14.6); RBC Distribution Width SD 44.4 fl (35.1-43.9); Red Blood Count 3.92 M/mm3 (4.2-5.4); White Blood Count 7.1 K/mm3 (4.4-11.0)
--- NOTE | 2023-11-21 20:21 | OB.TRI.NOTE ---
HPI - General HPI Narrative GENE FIGUEROA, is a 28 F who presents s/p cs on 11/18/2023 with increase LE edema and mild headaches all day, home BP 150/100. denies visual changes, RUQ pain. PFSH PFSH Medical History (Updated 11/21/23 @ 20:29 by Andria Salinas CNM) Alcohol use Anemia Arthritis Back pain Blackout delivery delivered Chronic cough NADJA II (cervical intraepithelial neoplasia II) Easy bruising Emphysema lung Encounter for IUD removal Former smoker Gastric reflux History of echocardiogram History of IBS HPV (human papilloma virus) infection Injury of head and neck IUD migration Marijuana use Personality disorder POTS (postural orthostatic tachycardia syndrome) PTSD (post-traumatic stress disorder) Seizures Shortness of breath on exertion Syncope Thyroid disease Home Medications albuterol sulfate 90 mcg/actuation aerosol inhaler 2 puff inhalation Q6H PRN SOB 01/22/22 [History Last Taken Unknown] multivitamin with minerals-folic acid 120 mcg chewable tablet (Adult Multivitamin Gummies) 1 tab PO Q24H 04/05/23 [History Last Taken 11/17/23 10:00] medical marijuana 3XD PTSD 11/06/23 [History Last Taken 11/17/23 10:00] naproxen 500 mg tablet 500 mg PO BID PRN PRN Pain #30 tabs 11/18/23 [Rx Last Taken Unknown] oxycodone-acetaminophen 5 mg-325 mg tablet (Percocet) 1 tab PO Q6H PRN pain 7 days #20 tabs 11/18/23 [Rx Last Taken Unknown] Allergy/AdvReac Type Severity Reaction Status Date / Time Latex, Natural Rubber Allergy Mild Other Verified 11/21/23 20:10 venom-honey bee Allergy Swelling Verified 11/21/23 20:10 [bee venom (honey bee)] diphenhydramine AdvReac behavior Verified 11/21/23 20:10 [From Benadryl] changes Family History Grandfather Diabetes Heart disease Kidney disease Skin cancer Myocardial infarction CVA (cerebral vascular accident) Grandmother Diabetes Myocardial infarction Mother Skin cancer Non Hodgkin's lymphoma, Onset Age: 61 Father Lung cancer COPD (chronic obstructive pulmonary disease) Mesothelioma Surgical History (Updated 11/19/23 @ 00:05 by Helio Em) H/O colonoscopy H/O LEEP laser removal of condyloma Previous section S/P tonsillectomy and adenoidectomy Social History adopted: No household members: significant other and children number of children: 1 current occupational status: unemployed current occupational exposures/hazards: No pets and animals: Yes (not managing litterbox) pets and animals: cat(s) history of recent travel: No sexually active: Yes Smoking Status: Current every day smoker tobacco type: e-cigarettes Electronic Cigarette Use: with nicotine quit status: not considering quitting counseling given: counseling >3 minutes alcohol intake: never substance use type: marijuana well-balanced diet: about half the time caffeine: Yes Type: coffee Number of servings: 1 and other Number of servings: 1 eating out: 4 or more times/week during the past year weight has: decreased > 10 lbs what type of physical activity do you participate in: none edwar/lutheran: None seatbelt use: always do you feel safe at home: Yes additional social history: significant Other- King Seg[place] History 3 Elective abortions Hx Para 2 Spontaneous abortions 1 Hx # Term Pregnancies 2 Ectopic pregnancies Hx # Pregnancies Multiple births # of living children 2 Past Pregnancies Del. Date Name GA/Weeks Outcome Route Bth Weight Gen Labor Lgth Anesthesia Del [facility] Provider FOB 11/14/18 Guerrero 39 live - full term Male spinal [facility] [place] 11/18/23 Phu 39 live - full term Male [facility] Marcanthony Delivery Date: 11/14/18 Last Updated by: Jenise Mohan AoD 6-7cm, recurrent variables, nuchal cord tight x2 Delivery Date: 11/18/23 Last Updated by: Priscila Shaffer [facility] BS Physical Exam Const alert and no apparent distress Resp normal respiratory effort, no retractions and no use of accessory muscles GI normal to inspection, nondistended, normoactive bowel sounds Extremity no calf tenderness Extremity Narrative: +2 edema, non pitting. Skin no rashes or lesions noted Neuro moves all extremities, deep tendon reflexes 2+ bilaterally and gait normal Psych mental status grossly normal Assessment & Plan (1) Hypertension in , condition: COMMENT: 130/80-90s. PEC labs obtained. plan for: labetolol 100mg BID lasix 20mg PO PRN up to 4xday. BP check in office on tuesday. cont home bp checks prior to medications. (2) delivery delivered: COMMENT: RLTCS scheduled for 11/17 @ 7:30 with SM with BS (title 19 signed 09/30/2023) Charges/Coding Visit Charges Office Visits / Consults: [id number] OP Consult L3
[2023-11-21 20:31] LABS: AST(SGOT) 30 U/L (15-37); Alanine Aminotransfer ALT/SGPT 36 U/L (13-56); Creatinine, Serum 0.68 mg/dL (0.55-1.02); EST Glomerular Filtration Rate 109 mL/min (>60); Est Glom Filt Rate - Afr Amer 132 mL/min (>60); Uric Acid 6.3 mg/dL (2.6-6.0)
[2023-11-21] MEDS: Labetalol 100 MG Tablet PO (20:42)
[2023-11-21] MEDS: Furosemide 20 MG Tablet PO (20:43)
== END 2023-11-21 22:06 | disposition home or self-care (01) ==
LOC: WPOUT 19:06 → WP 19:06
PROVIDERS: Visit Provider Registered Nurse
DX: O99.893 Other specified diseases and conditions complicating puerperium (principal); J43.9 Emphysema, unspecified; R51.9 Headache, unspecified; O99.53 Diseases of the respiratory system complicating the puerperium; O16.5 Unspecified maternal hypertension, complicating the puerperium; R60.0 Localized edema; Z79.899 Other long term (current) drug therapy
CPT/HCPCS: 36415; 82565; 84450; 84460; 84550; 85027; 99221; G0378

== ENCOUNTER → 2024-01-04 | Outpatient (CLI) | payer MEDICAID, SELFPAY ==
[2024-01-10 22:03] LABS: HPV Reflexed? NOT INDICATED
== END | disposition home or self-care (01) ==
LOC: LABSPEC 16:22
PROVIDERS: Referring Provider Nurse Practitioner Women's Health; Visit Provider Nurse Practitioner Women's Health
DX: Z12.4 Encounter for screening for malignant neoplasm of cervix (principal); N87.1 Moderate cervical dysplasia
CPT/HCPCS: 88175; G0145

== ENCOUNTER 2024-09-17 13:28 | Emergency (ER) | payer MEDICAID, SELFPAY ==
[2024-09-17 13:39] VITALS: BP 127/94; PULSE 86; RESP 16; TEMP 36.7; O2SAT 98; BMI 45.5
--- NOTE | 2024-09-17 13:59 | EKG12_ITS ---
Test Reason : CP Blood Pressure : */* mmHG Vent. Rate : 92 BPM Atrial Rate : 92 BPM P-R Int : 170 ms QRS Dur : 76 ms QT Int : 380 ms P-R-T Axes : 73 57 49 degrees QTcB Int : 469 ms Normal sinus rhythm Normal ECG Confirmed by LUIS PEREZ, ANTONY ([id number]), brands editor CODEY LAYTON ([id number]) on 09/19/2024 6:23:34 AM Referred By: BB/ISSA Confirmed By: ANTONY SMITH MD
== END 2024-09-17 15:54 | disposition left against medical advice (07) ==
LOC: ED 16:08
DX: Z86.73 Personal history of transient ischemic attack (TIA), and cerebral infarction without residual deficits (principal)
CPT/HCPCS: 93005; 99281

== ENCOUNTER 2025-03-11 13:09 | Emergency (ER) | payer MEDICAID, SELFPAY ==
[2025-03-11 13:09] VITALS: BP 144/94; PULSE 104; RESP 18; TEMP 36.2; O2SAT 100; BMI 40.8
--- NOTE | 2025-03-11 13:49 | CT_ITS ---
EXAM: CT Cervical Spine Without Intravenous Contrast CLINICAL INDICATION: INJURY TECHNIQUE: Axial computed tomography images of the cervical spine without intravenous contrast. This CT exam was performed using one or more of the following dose reduction techniques: automated exposure control, adjustment of the mA and/or kV according to patient size, and/or use of iterative reconstruction technique. COMPARISON: No relevant prior studies available. FINDINGS: VERTEBRAE: Unremarkable. No acute fracture. DISCS/SPINAL CANAL/NEURAL FORAMINA: No acute findings. No significant spinal canal stenosis. SOFT TISSUES: Unremarkable. CT/Spine Cervical without Contras IMPRESSION: No acute fracture. [facility]
--- NOTE | 2025-03-11 13:49 | CT_ITS ---
EXAM: CT Head Without Intravenous Contrast CLINICAL INDICATION: HEAD INJURY TECHNIQUE: Axial computed tomography images of the head/brain without intravenous contrast. This CT exam was performed using one or more of the following dose reduction techniques: automated exposure control, adjustment of the mA and/or kV according to patient size, and/or use of iterative reconstruction technique. COMPARISON: No relevant prior studies available. FINDINGS: BRAIN AND EXTRA-AXIAL SPACES: No acute intracranial hemorrhage, midline shift or mass effect. If symptoms persist, further evaluation with MRI is recommended. No significant white matter disease. BONES/JOINTS: Unremarkable. No acute fracture. SOFT TISSUES: Unremarkable. SINUSES: Unremarkable as visualized. No acute sinusitis. MASTOID AIR CELLS: Unremarkable as visualized. No mastoid effusion. CT/Brain/Head without Contrast IMPRESSION: No acute intracranial hemorrhage, midline shift or mass effect. If symptoms per sist, further evaluation with MRI is recommended. Reading [facility]
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
--- NOTE | 2025-03-11 14:00 | RAD_ITS ---
EXAM: XR Right Knee Complete, 4 or More Views CLINICAL INDICATION: INJURY TECHNIQUE: Four or more views of the right knee. COMPARISON: No relevant prior studies available. FINDINGS: BONES/JOINTS: Unremarkable. No acute fracture. No dislocation. SOFT TISSUES: Unremarkable. RAD/Knee 4 or More Views IMPRESSION: No acute fracture. Reading Location[facility]
--- NOTE | 2025-03-11 14:00 | RAD_ITS ---
EXAM: XR Left Hand Complete, 3 or More Views CLINICAL INDICATION: INJURY TECHNIQUE: Frontal, lateral and oblique views of the left hand. COMPARISON: No relevant prior studies available. FINDINGS: BONES/JOINTS: See below. SOFT TISSUES: Soft tissue swelling without acute fracture. RAD/Hand Min 3 Views IMPRESSION: 1. Soft tissue swelling without acute fracture. 2. If symptoms persist, further evaluation with CT is recommended. Reading Location[facility]
--- NOTE | 2025-03-11 14:00 | RAD_ITS ---
EXAM: XR Chest, 2 Views CLINICAL INDICATION: INJURY TECHNIQUE: Frontal and lateral views of the chest. COMPARISON: No relevant prior studies available. FINDINGS: LUNGS AND PLEURAL SPACES: Unremarkable. No consolidation. No pneumothorax. HEART: Unremarkable. No cardiomegaly. MEDIASTINUM: Unremarkable. Normal mediastinal contour. BONES/JOINTS: Unremarkable. No acute fracture. RAD/Chest PA and Lateral IMPRESSION: No acute cardiopulmonary process. Reading Location: [facility]
--- NOTE | 2025-03-11 14:00 | RAD_ITS ---
EXAM: XR Left Knee Complete, 4 or More Views CLINICAL INDICATION: INJURY TECHNIQUE: Four or more views of the left knee. COMPARISON: No relevant prior studies available. FINDINGS: BONES/JOINTS: See below. SOFT TISSUES: Soft tissue swelling without acute fracture. RAD/Knee 4 or More Views IMPRESSION: 1. Soft tissue swelling without acute fracture. 2. If symptoms persist, further evaluation with CT is recommended. Reading Location[facility]
--- NOTE | 2025-03-11 14:30 | RAD_ITS ---
EXAM: XR Right Elbow Complete, 3 or More Views CLINICAL INDICATION: INJURY TECHNIQUE: Frontal, lateral and oblique views of the right elbow. COMPARISON: No relevant prior studies available. FINDINGS: BONES/JOINTS: Unremarkable. No acute fracture. No dislocation. SOFT TISSUES: Unremarkable. RAD/Elbow min 3 Views IMPRESSION: No acute fracture. Reading Location[facility]
[2025-03-11 15:04] VITALS: BP 127/82; PULSE 87; RESP 18; TEMP 37; O2SAT 100
--- NOTE | 2025-03-11 16:30 | RAD_ITS ---
EXAM: XR Lumbosacral Spine, 2 or 3 Views CLINICAL INDICATION: INJURY TECHNIQUE: Frontal and lateral views of the lumbar spine and sacrum. COMPARISON: No relevant prior studies available. FINDINGS: VERTEBRAE: Mild facet arthropathy of L3-S1. Mild endplate degenerative changes and disc degeneration of L4-S1. No acute fracture. Normal alignment. SACRUM/COCCYX: Unremarkable as visualized. No acute fracture. DISC SPACES: No acute findings. No significant narrowing. SOFT TISSUES: Unremarkable. RAD/Lumbar Spine 2 or 3 Views IMPRESSION: Degenerative changes as above. Reading Location[facility]
== END 2025-03-11 15:09 | disposition home or self-care (01) ==
PROVIDERS: Emergency Provider Emergency Medicine; PCP Family Medicine; Visit Provider Emergency Medicine
DX: S50.01XA Contusion of right elbow, initial encounter (principal); S80.01XA Contusion of right knee, initial encounter; S80.02XA Contusion of left knee, initial encounter; M79.645 Pain in left finger(s); G89.11 Acute pain due to trauma; W04.XXXA Fall while being carried or supported by other persons, initial encounter; Y92.89 Other specified places as the place of occurrence of the external cause; F17.290 Nicotine dependence, other tobacco product, uncomplicated
CPT/HCPCS: 70450; 71046; 72100; 72125; 73080; 73130; 73564; 99282